=== PATIENT | female | born 1935 | race Caucasian/White ===

== ENCOUNTER 2021-11-29 08:57 | Inpatient (IN) ==
[2021-11-29] MEDS ORDERED: PROPOFOL IV EMULSION 10 MG/ML 100 ML VIAL IV ONE (09:08)
[2021-11-29] MEDS ORDERED: NALOXONE HCL 0.4 MG/1 ML VIAL/CARP ONE (09:12)
[2021-11-29 09:29] LABS: Basophils # (auto) 0.03 K/uL (0-0.2); Basophils % (auto) 0.3 %; Eosinophils # (auto) 0.06 K/uL (0-0.50); Eosinophils % (auto) 0.5 %; Hematocrit (blood only) 44.3 % (34.1-44.9); Hemoglobin 14.7 g/dl (12.0-16.0); Immature Granulocytes # (auto) 0.25 K/uL (0.00-0.02); Immature Granulocytes % (auto) 2.2 %; Lymphocytes # (auto) 2.85 K/uL (1.2-3.4); Lymphocytes % (auto) 25.4 %; Mean Corpuscular Hemoglobin 29.7 pg (25.0-34.0); Mean Corpuscular Hgb Conc 33.2 g/dL (32.0-36.0); Mean Corpuscular Volume 89.5 fL (80.0-100.0); Mean Platelet Volume 10.7 fL (9.4-12.3); Monocytes # (auto) 2.09 K/uL (0.24-0.82); Monocytes % (auto) 18.6 %; Neutrophils # (auto) 5.96 K/uL (1.4-6.5); Platelet Count 181 K/uL (130-400); RDW Coefficient of Variation 11.9 % (11.5-14.5); RDW Standard Deviation 37.9 fL (36.4-46.3); Red Blood Count 4.95 M/uL (3.93-5.22); White Blood Count 11.24 K/ul (4.8-10.8)
[2021-11-29 09:35] LABS: iSTAT Hemoglobin 15.3 g/dl (12.0-16.0); iSTAT Ionized Calcium 1.09 mmol/l (1.12-1.32); iSTAT Potassium 5.1 mmol/L (3.3-5.0)
--- NOTE | 2021-11-29 09:56 | Emergency Department Note ---
Impression & Plan Acute alteration in mental status, Dementia ED Provider Note Provider: Isaias Lares MD DATE OF SERVICE: 11/29/2021 CHIEF COMPLAINT: Altered mental status HISTORY OF PRESENT ILLNESS: Patient is a 86-year-old female history of dementia, hypertension, goiter, psoriasis presenting here today from her dementia unit at [facility] where she was found unresponsive this morning. Evidently late last night was not quite herself but unable to get further details from EMS. EMS reports the patient was found unresponsive in her bed this morning and brought here for further evaluation. EMS notes that her pupils appeared pinpoint and gave 2 mg of intranasal Narcan without improvement. They are bagging the patient as she intermittently has been having some apnea episodes. She not been responding to commands for them. Upon arrival the patient mainly responsive unable to gain additional history from her. [id number] who later arrived states that she was okay yesterday mid afternoo n when he saw her and she waved goodbye. This is not her baseline. REVIEW OF SYSTEMS: Unable obtain due to the patient's altered mental status PAST MEDICAL HISTORY: As noted above MEDICATIONS:Unable obtain due to the patient's altered mental status FMH:Unable obtain due to the patient's altered mental status SOCIAL HISTORY:Unable obtain due to the patient's altered mental status other than she resides at [facility] and former smoker PHYSICAL EXAM: GENERAL: Minimal withdrawal to painful stimuli. BVM by EMS upon arrival head: normocephalic and atraumatic EYES: No injection, discharge or icterus. Pupils 2 mm and pinpoint bilaterally. NECK: Trachea midline. Supple. ENT: Mucous membranes pink and moist. Pharynx without erythema or exudate. Minimal gag reflex initially. LUNGS: Airway patent. No retractions. Breath sounds clear with good air entry bilaterally. HEART: Irregular rate and rhythm. No chest wall tenderness ABDOMEN: Soft and non-tender, without guarding or rebound. SKIN: Acyanotic, warm, dry, with some patches of psoriasis on the face, arms, and thighs. No bulla or vesicles noted. EXTREMITIES: Without swelling, tenderness or deformity NEUROLOGICAL: Occasionally moves all extremities but not seemingly that purposefully. Minimally responsive to sternal rub. Does have an intact corneal reflex. EK bpm concerning this represents an atrial flutter picture although difficult to interpret given low amplitude and could simply represent some tremor artifact with sinus rhythm. No clear ST segment elevation noted. CONTINUOUS CARDIAC MONITORING: was ordered and showed a heart rate of 80s-100s bpm in atrial flutter to the normal sinus rhythm with brief possible episode of V. tach although given low amplitude and some slight tremor in her extremities may be artifactual. Patient's laboratory studies and imaging reviewed. Differential includes Infection, dehydration, metabolic abnormality, hypo/hyperglycemia, electrolyte disturbance, anemia, hypoxia, cardiac sources, intracerebral event, toxicologic, neurologic, as well as other pathologies. IMPRESSION/MEDICAL DECISION MAKING: Patient is with altered mental status. Afebrile upon arrival. Being bagged due to periods of apnea. Initially translated to BiPAP with some concern for need for intubation as initially she is fairly unresponsive with minimal gag. Given additional Narcan without much improvement. While attempting to determine CODE STATUS and establish IV access, patient's mental status did improve a bit and she said her name. Seems to be protecting her airway with a better gag reflex and thus will monitor closely on end-tidal and nasal cannula oxygen. She does not seem to be significantly hypoxic. There is no history of trauma reported. Blood work and broad work-up was entertained. CT the head to be completed. Patient's sister and [id number] later arrived and state they are POA and the patient would like everything done at this time and that she is in a terminal or vegetative state. Patient without significant focal evidence of deficit noted. CT of the head without significant findings. Chest x-ray also without significant findings. Blood work here really without significant explanation for her change in mental status. Upon returning from CT scan patient was awake and conversive and was able to have a drink and talk with us and family at bedside. Does not remember earlier episode. He is significantly improved and eleanor italo states she is back at bedside. Unsure of exact etiology of episode today. Given the significant change however feel that monitoring/observation will be warranted and the hospitalist team was contacted. Seems to be in a sinus rhythm now with some slight artifact. Question if the possible A. fib and again transient episode of V. tach were more artifactual earlier as we did not do significant intervention and they seem to have resolved quickly and spontaneously.. Can further be monitored here. DIAGNOSIS: Transient unresponsive episode, dementia DISPOSITION: Hospitalist will evaluate Family updated at bedside. Critical Care I have personally spent 32 minutes of critical care time in the direct management of this patient. This includes bedside care, interpretation of diagnostic studies, and testing, discussion with consultants, patient, and family members, and other required patient management activities. These 32 minutes is in excess of all separately billable procedures. Past Med/Surg History Social History Smoking Status: Unknown if ever smoked Feels Safe at Home: Yes Allergies Allergies Allergy/AdvReac Type Severity Reaction Status Date / Time indomethacin AdvReac Unknown Verified 11/29/21 10:15 Home Meds Home Medications Medication Instructions Recorded Confirmed Certa-Delores 1 tab PO DAILY 11/29/21 11/29/21 buspirone 30 mg tablet 30 mg PO BID 11/29/21 11/29/21 clotrimazole-betamethasone 1 1 applic topical BID 11/29/21 11/29/21 %-0.05 % topical cream cranberry 500 mg capsule 500 mg PO DAILY 11/29/21 11/29/21 donepezil 10 mg tablet 10 mg PO HS 11/29/21 11/29/21 memantine 5 mg tablet 5 mg PO BID 11/29/21 11/29/21 metoprolol tartrate 25 mg tablet 25 mg PO BID 11/29/21 11/29/21 quetiapine 50 mg tablet 50 mg PO BID 11/29/21 11/29/21 simvastatin 10 mg tablet 10 mg PO HS 11/29/21 11/29/21 vit C 250 mg-vit E 90 mg-zinc 40 1 cap PO BID 11/29/21 11/29/21 mg-copper 1 [id number] capsule (PreserVision AREDS-2) Results & Data (ED) Vital Signs Vital Signs - 24 hr 11/29/21 09:07 11/29/21 09:30 11/29/21 10:30 Temperature 36.8 C Temperature Source Rectal Pulse Rate 115 H Pulse Rate [Left Finger] 86 84 Pulse Rhythm Regular Pulse Strength Normal Respiratory Rate 13 21 16 Respiratory Effort / Characteristics Non-Labored Spontaneous Respiratory Depth Normal Blood Pressure 143/98 H Blood Pressure [Left Arm] 138/90 136/72 Blood Pressure Mean 113 Blood Pressure Mean [Left Arm] 106 93 Blood Pressure Position Sitting Blood Pressure Position [Left Arm] Sitting Sitting Pulse Oximetry 93 96 98 Oxygen Delivery Method BiPAP Nasal Cannula Room Air Oxygen Flow Rate 3 Sepsis Recent Fever Within 48 Hours No Sepsis New/Unexplained Change in Mental Status No Sepsis Action Taken by Nursing No Action Required Laboratory Data Result diagrams: 11/29/21 09:16 11/29/21 09:16 Lab Results 11/29/21 11/29/21 11/29/21 Range/Units 09:16 09:16 09:16 WBC 11.24 H (4.8-10.8) K/ul RBC 4.95 (3.93-5.22) M/uL Hgb 14.7 (12.0-16.0) g/dl POC Hgb (12.0-16.0) g/dl Hct 44.3 (34.1-44.9) % POC Hct (37-47) % MCV 89.5 (80.0-100.0) fL MCH 29.7 (25.0-34.0) pg MCHC 33.2 (32.0-36.0) g/dL RDW Std Deviation 37.9 (36.4-46.3) fL RDW Coeff of Guera 11.9 (11.5-14.5) % Plt Count 181 (130-400) K/uL MPV 10.7 (9.4-12.3) fL Immature Gran % (Auto) 2.2 % Neut % (Auto) 53.0 % Lymph % (Auto) 25.4 % Bowman % (Auto) 18.6 % Eos % (Auto) 0.5 % Baso % (Auto) 0.3 % Neut # (Auto) 5.96 (1.4-6.5) K/uL Lymph # (Auto) 2.85 (1.2-3.4) K/uL Bowman # (Auto) 2.09 H (0.24-0.82) K/uL Eos # (Auto) 0.06 (0-0.50) K/uL Baso # (Auto) 0.03 (0-0.2) K/uL Immature Gran # (Auto) 0.25 H (0.00-0.02) K/uL VBG pH (7.36-7.41) VBG pCO2 (38-50) mmHg VBG pO2 mmHg VBG HCO3 mmol/L VBG O2 Saturation % VBG Base Excess mEq/L POC Sodium (135-144) mmol/L Sodium 135 L (136-145) mmol/L POC Potassium (3.3-5.0) mmol/L Potassium 4.9 (3.5-5.1) mmol/L POC Chloride (101-112) mmol/L Chloride 100 (98-107) mmol/L Carbon Dioxide 26 (21-32) mmol/L POC Total CO2 (24-31) mmol/L Anion Gap 9 (3-11) POC Anion Gap (16-25) mmol/L POC BUN (7-18) mg/dl BUN 22 (6-23) mg/dl Creatinine 1.03 (0.6-1.2) mg/dl POC Creatinine (0.6-1.3) mg/dl Est Cr Clr Drug Dosing 41.6 ml/min Est GFR ( Amer) 57.8 ml/min Est GFR (Non-Af Amer) 49.9 ml/min BUN/Creatinine Ratio 21.4 H (10-20) Glucose 96 (70-99(Fasting)) mg/dl POC Glucose (other) (70-99) mg/dl Lactate (0.4-2.0) mmol/L Calcium 10.0 (8.5-10.1) mg/dl POC Ioniz Calcium Tiff (1.12-1.32) mmol/l Magnesium 2.2 (1.7-2.4) mg/dl Total Bilirubin 0.8 (0.2-1.0) mg/dl AST 28 (13-39) U/L ALT 18 (7-52) U/L Alkaline Phosphatase 123 H (34-104) U/L Ammonia (18-72) umol/L Total Creatine Kinase 37 (26-192) U/L Troponin I High Sens 9.4 (0-14) pg/ml Total Protein 8.4 H (6.0-8.3) gm/dl Albumin 4.4 (3.4-5.0) gm/dl Globulin 4.0 (2.5-4.0) gm/dl Albumin/Globulin Ratio 1.1 (0.9-2) TSH 0.979 (0.300-4.500) uIu/ml Urine Color Urine Appearance (Clear) Urine pH (4.5-7.5) Ur Specific [place] (1.000-1.030) Urine Protein (Negative) Urine Glucose (UA) (Negative) Urine Ketones (Negative) Urine Blood (Negative) Urine Nitrite (Negative) Urine Bilirubin (Negative) Urine Urobilinogen (Negative) Ur Leukocyte Esterase (Negative) Urine WBC (Auto) (0-5) /hpf Urine RBC (Auto) (0-4) /hpf U Hyaline Cast (Auto) (0-5) /lpf U Epithel Cells (Auto) (0-5) /lpf Urine Bacteria (Auto) (Negative) Salicylates (3.0-30) mg/dl Acetaminophen (10-30) ug/ml Ethyl Alcohol mg/dL (<10.0) mg/dl SARS-CoV-2, RNA, NAAT (NEGATIVE) 11/29/21 11/29/21 11/29/21 Range/Units 09:16 09:20 09:35 WBC (4.8-10.8) K/ul RBC (3.93-5.22) M/uL Hgb (12.0-16.0) g/dl POC Hgb 15.3 (12.0-16.0) g/dl Hct (34.1-44.9) % POC Hct 45 (37-47) % MCV (80.0-100.0) fL MCH (25.0-34.0) pg MCHC (32.0-36.0) g/dL RDW Std Deviation (36.4-46.3) fL RDW Coeff of Guera (11.5-14.5) % Plt Count (130-400) K/uL MPV (9.4-12.3) fL Immature Gran % (Auto) % Neut % (Auto) % Lymph % (Auto) % Bowman % (Auto) % Eos % (Auto) % Baso % (Auto) % Neut # (Auto) (1.4-6.5) K/uL Lymph # (Auto) (1.2-3.4) K/uL Bowman # (Auto) (0.24-0.82) K/uL Eos # (Auto) (0-0.50) K/uL Baso # (Auto) (0-0.2) K/uL Immature Gran # (Auto) (0.00-0.02) K/uL VBG pH (7.36-7.41) VBG pCO2 (38-50) mmHg VBG pO2 mmHg VBG HCO3 mmol/L VBG O2 Saturation % VBG Base Excess mEq/L POC Sodium 137 (135-144) mmol/L Sodium (136-145) mmol/L POC Potassium 5.1 H (3.3-5.0) mmol/L Potassium (3.5-5.1) mmol/L POC Chloride 103 (101-112) mmol/L Chloride (98-107) mmol/L Carbon Dioxide (21-32) mmol/L POC Total CO2 26 (24-31) mmol/L Anion Gap (3-11) POC Anion Gap 15.0 L (16-25) mmol/L POC BUN 24 H (7-18) mg/dl BUN (6-23) mg/dl Creatinine (0.6-1.2) mg/dl POC Creatinine 1.0 (0.6-1.3) mg/dl Est Cr Clr Drug Dosing ml/min Est GFR ( Amer) ml/min Est GFR (Non-Af Amer) ml/min BUN/Creatinine Ratio (10-20) Glucose (70-99(Fasting)) mg/dl POC Glucose (other) 103 H (70-99) mg/dl Lactate (0.4-2.0) mmol/L Calcium (8.5-10.1) mg/dl POC Ioniz Calcium Tiff 1.09 L (1.12-1.32) mmol/l Magnesium (1.7-2.4) mg/dl Total Bilirubin (0.2-1.0) mg/dl AST (13-39) U/L ALT (7-52) U/L Alkaline Phosphatase (34-104) U/L Ammonia (18-72) umol/L Total Creatine Kinase (26-192) U/L Troponin I High Sens (0-14) pg/ml Total Protein (6.0-8.3) gm/dl Albumin (3.4-5.0) gm/dl Globulin (2.5-4.0) gm/dl Albumin/Globulin Ratio (0.9-2) TSH (0.300-4.500) uIu/ml Urine Color Yellow Urine Appearance Clear (Clear) Urine pH 6.5 (4.5-7.5) Ur Specific [place] 1.016 (1.000-1.030) Urine Protein 1+ H (Negative) Urine Glucose (UA) Negative (Negative) Urine Ketones Negative (Negative) Urine Blood Negative (Negative) Urine Nitrite Negative (Negative) Urine Bilirubin Negative (Negative) Urine Urobilinogen Negative (Negative) Ur Leukocyte Esterase Trace H (Negative) Urine WBC (Auto) 1-5 (0-5) /hpf Urine RBC (Auto) 0-4 (0-4) /hpf U Hyaline Cast (Auto) 0 (0-5) /lpf U Epithel Cells (Auto) 10-20 H (0-5) /lpf Urine Bacteria (Auto) Negative (Negative) Salicylates < 3.0 L (3.0-30) mg/dl Acetaminophen < 3 L (10-30) ug/ml Ethyl Alcohol mg/dL (<10.0) mg/dl SARS-CoV-2, RNA, NAAT (NEGATIVE) 11/29/21 11/29/21 11/29/21 Range/Units 09:35 10:09 10:09 WBC (4.8-10.8) K/ul RBC (3.93-5.22) M/uL Hgb (12.0-16.0) g/dl POC Hgb (12.0-16.0) g/dl Hct (34.1-44.9) % POC Hct (37-47) % MCV (80.0-100.0) fL MCH (25.0-34.0) pg MCHC (32.0-36.0) g/dL RDW Std Deviation (36.4-46.3) fL RDW Coeff of Guera (11.5-14.5) % Plt Count (130-400) K/uL MPV (9.4-12.3) fL Immature Gran % (Auto) % Neut % (Auto) % Lymph % (Auto) % Bowman % (Auto) % Eos % (Auto) % Baso % (Auto) % Neut # (Auto) (1.4-6.5) K/uL Lymph # (Auto) (1.2-3.4) K/uL Bowman # (Auto) (0.24-0.82) K/uL Eos # (Auto) (0-0.50) K/uL Baso # (Auto) (0-0.2) K/uL Immature Gran # (Auto) (0.00-0.02) K/uL VBG pH (7.36-7.41) VBG pCO2 (38-50) mmHg VBG pO2 mmHg VBG HCO3 mmol/L VBG O2 Saturation % VBG Base Excess mEq/L POC Sodium (135-144) mmol/L Sodium (136-145) mmol/L POC Potassium (3.3-5.0) mmol/L Potassium (3.5-5.1) mmol/L POC Chloride (101-112) mmol/L Chloride (98-107) mmol/L Carbon Dioxide (21-32) mmol/L POC Total CO2 (24-31) mmol/L Anion Gap (3-11) POC Anion Gap (16-25) mmol/L POC BUN (7-18) mg/dl BUN (6-23) mg/dl Creatinine (0.6-1.2) mg/dl POC Creatinine (0.6-1.3) mg/dl Est Cr Clr Drug Dosing ml/min Est GFR ( Amer) ml/min Est GFR (Non-Af Amer) ml/min BUN/Creatinine Ratio (10-20) Glucose (70-99(Fasting)) mg/dl POC Glucose (other) (70-99) mg/dl Lactate (0.4-2.0) mmol/L Calcium (8.5-10.1) mg/dl POC Ioniz Calcium Tiff (1.12-1.32) mmol/l Magnesium (1.7-2.4) mg/dl Total Bilirubin (0.2-1.0) mg/dl AST (13-39) U/L ALT (7-52) U/L Alkaline Phosphatase (34-104) U/L Ammonia 29.0 (18-72) umol/L Total Creatine Kinase (26-192) U/L Troponin I High Sens (0-14) pg/ml Total Protein (6.0-8.3) gm/dl Albumin (3.4-5.0) gm/dl Globulin (2.5-4.0) gm/dl Albumin/Globulin Ratio (0.9-2) TSH (0.300-4.500) uIu/ml Urine Color Urine Appearance (Clear) Urine pH (4.5-7.5) Ur Specific [place] (1.000-1.030) Urine Protein (Negative) Urine Glucose (UA) (Negative) Urine Ketones (Negative) Urine Blood (Negative) Urine Nitrite (Negative) Urine Bilirubin (Negative) Urine Urobilinogen (Negative) Ur Leukocyte Esterase (Negative) Urine WBC (Auto) (0-5) /hpf Urine RBC (Auto) (0-4) /hpf U Hyaline Cast (Auto) (0-5) /lpf U Epithel Cells (Auto) (0-5) /lpf Urine Bacteria (Auto) (Negative) Salicylates (3.0-30) mg/dl Acetaminophen (10-30) ug/ml Ethyl Alcohol mg/dL < 10.0 (<10.0) mg/dl SARS-CoV-2, RNA, NAAT NEGATIVE (NEGATIVE) 11/29/21 11/29/21 Range/Units 10:12 10:26 WBC (4.8-10.8) K/ul RBC (3.93-5.22) M/uL Hgb (12.0-16.0) g/dl POC Hgb (12.0-16.0) g/dl Hct (34.1-44.9) % POC Hct (37-47) % MCV (80.0-100.0) fL MCH (25.0-34.0) pg MCHC (32.0-36.0) g/dL RDW Std Deviation (36.4-46.3) fL RDW Coeff of Guera (11.5-14.5) % Plt Count (130-400) K/uL MPV (9.4-12.3) fL Immature Gran % (Auto) % Neut % (Auto) % Lymph % (Auto) % Bowman % (Auto) % Eos % (Auto) % Baso % (Auto) % Neut # (Auto) (1.4-6.5) K/uL Lymph # (Auto) (1.2-3.4) K/uL Bowman # (Auto) (0.24-0.82) K/uL Eos # (Auto) (0-0.50) K/uL Baso # (Auto) (0-0.2) K/uL Immature Gran # (Auto) (0.00-0.02) K/uL VBG pH 7.36 (7.36-7.41) VBG pCO2 50 (38-50) mmHg VBG pO2 25 mmHg VBG HCO3 28 mmol/L VBG O2 Saturation < 60.0 % VBG Base Excess 1.9 mEq/L POC Sodium (135-144) mmol/L Sodium (136-145) mmol/L POC Potassium (3.3-5.0) mmol/L Potassium (3.5-5.1) mmol/L POC Chloride (101-112) mmol/L Chloride (98-107) mmol/L Carbon Dioxide (21-32) mmol/L POC Total CO2 (24-31) mmol/L Anion Gap (3-11) POC Anion Gap (16-25) mmol/L POC BUN (7-18) mg/dl BUN (6-23) mg/dl Creatinine (0.6-1.2) mg/dl POC Creatinine (0.6-1.3) mg/dl Est Cr Clr Drug Dosing ml/min Est GFR ( Amer) ml/min Est GFR (Non-Af Amer) ml/min BUN/Creatinine Ratio (10-20) Glucose (70-99(Fasting)) mg/dl POC Glucose (other) (70-99) mg/dl Lactate 1.2 (0.4-2.0) mmol/L Calcium (8.5-10.1) mg/dl POC Ioniz Calcium Tiff (1.12-1.32) mmol/l Magnesium (1.7-2.4) mg/dl Total Bilirubin (0.2-1.0) mg/dl AST (13-39) U/L ALT (7-52) U/L Alkaline Phosphatase (34-104) U/L Ammonia (18-72) umol/L Total Creatine Kinase (26-192) U/L Troponin I High Sens (0-14) pg/ml Total Protein (6.0-8.3) gm/dl Albumin (3.4-5.0) gm/dl Globulin (2.5-4.0) gm/dl Albumin/Globulin Ratio (0.9-2) TSH (0.300-4.500) uIu/ml Urine Color Urine Appearance (Clear) Urine pH (4.5-7.5) Ur Specific [place] (1.000-1.030) Urine Protein (Negative) Urine Glucose (UA) (Negative) Urine Ketones (Negative) Urine Blood (Negative) Urine Nitrite (Negative) Urine Bilirubin (Negative) Urine Urobilinogen (Negative) Ur Leukocyte Esterase (Negative) Urine WBC (Auto) (0-5) /hpf Urine RBC (Auto) (0-4) /hpf U Hyaline Cast (Auto) (0-5) /lpf U Epithel Cells (Auto) (0-5) /lpf Urine Bacteria (Auto) (Negative) Salicylates (3.0-30) mg/dl Acetaminophen (10-30) ug/ml Ethyl Alcohol mg/dL (<10.0) mg/dl SARS-CoV-2, RNA, NAAT (NEGATIVE) Administered Medications Discontinued Medications Naloxone HCl (Naloxone Hcl 0.4 Mg/1 Ml Vial/Carp) Confirm Administered Dose 2 mg .ROUTE .STK-MED ONE Stop: 11/29/21 09:13 Last Admin: 11/29/21 09:12 Dose: 2 mg Documented By: TORIN Propofol (Propofol Iv Emulsion 10 Mg/Ml 100 Ml Vial) Confirm Administered Dose 1,000 mg IV .STK-MED ONE Stop: 11/29/21 09:09 Last Admin: 11/29/21 12:12 Dose: Not Given Documented By: TORIN Imaging Data Radiologist's Impression: Head CT 11/29/21 08:59 CT head/brain wo con CLINICAL HISTORY: ams Technique: Contiguous axial CT images of the head were acquired from the base of the skull to the vertex without intravenous contrast administration. Images were viewed in brain, subdural and bone windows. Automated dose lowering techniques and/or adjustment according to patient size were utilized for this exam. Comparison: None available at the time of this dictation. Findings: Areas of decreased attenuation are present in the periventricular and subcorti zacarias white matter bilaterally consistent with small vessel ischemic disease. Generalized cerebral atrophy with commensurate enlargement of the ventricles, sulci, and cisterns is also present. There is no acute intracranial hemorrhage or evidence of acute territorial infarction. No shift of the midline structures, mass effect, or extra-axial abnormalities are shown. Atherosclerotic calcifications are present in the intracranial segments of the internal carotid arteries. Imaged portions of the paranasal sinuses and mastoid air cells are clear. The orbits appear normal. There are no acute fractures of the calvaria or scalp swelling. Impression: No acute intracranial hemorrhage, no evidence of acute territorial infarction or other acute intracranial disease process. ACT 112: Negative or not required by law. Electronically signed by: Yogi Jeffers M.D. 11/29/2021 10:00 AM Chest X-Ray 11/29/21 09:00 XR chest 1V portable CLINICAL HISTORY: ams TECHNIQUE: Single frontal radiograph of the chest was obtained. Comparison: None available at the time of this dictation. FINDINGS: No lines and tubes are seen. Calcified aortic knob is seen. The lungs are clear. No evidence of pleural effusion or pneumothorax. IMPRESSION: No acute chest disease. ACT 112: Negative or not required by law. Electronically signed by: Yogi Jeffers M.D. 11/29/2021 10:23 AM Discharge Plan Visit Data Chief Complaint: Altered Mental Status ED Provider: Isaias Lares Discharge Problem: Acute alteration in mental status, Dementia Patient Disposition: Being Evaluated by Hospitalist Discharge Instructions Interventions: ED Discharge Assessment Last Done: 11/29/21 11:54 : Dementia Qualifiers: Dementia type: unspecified type
[2021-11-29 09:59] LABS: Albumin Globulin Ratio 1.1 (0.9-2); Albumin Level 4.4 gm/dl (3.4-5.0); BUN Creatinine Ratio 21.4 (10-20); Bilirubin,Total 0.8 mg/dl (0.2-1.0); Creatinine Clr Calc Pharmacy 41.6 ml/min; Est GFR (African American) 57.8 ml/min; Est GFR (Non-African American) 49.9 ml/min; Magnesium 2.2 mg/dl (1.7-2.4); Potassium 4.9 mmol/L (3.5-5.1); Total Protein 8.4 gm/dl (6.0-8.3); Troponin I High Sensitivity 9.4 pg/ml (0-14)
[2021-11-29 10:00] LABS: Acetaminophen < 3 ug/ml (10-30); Salicylate < 3.0 mg/dl (3.0-30)
[2021-11-29 10:01] LABS: Appearance Urine Clear (Clear); Bilirubin Urine Negative (Negative); Blood Urine Negative (Negative); Color Urine Yellow; Glucose Urine UA Negative (Negative); Ketones Urine Negative (Negative); Leukocyte Esterase Urine Trace (Negative); Nitrite Urine Negative (Negative); Protein Urine 1+ (Negative); Specific Gravity Urine 1.016 (1.000-1.030); Urobilinogen Urine Negative (Negative); pH Urine 6.5 (4.5-7.5)
--- NOTE | 2021-11-29 10:01 | CT Scan Report ---
CT head/brain wo con CLINICAL HISTORY: ams Technique: Contiguous axial CT images of the head were acquired from the base of the skull to the lyn mabel without intravenous contrast administration. Images were viewed in brain, subdural and bone [facility]. Automated dose lowering techniques and/or adjustment according to patient size were utilized for this exam. Comparison: None available at the time of this dictation. Findings: Areas of decreased attenuation are present in the periventricular and subcortical white matter bilate rally consistent with small vessel ischemic disease. Generalized cerebral atrophy with commensurate e nlargement of the ventricles, sulci, and cisterns is also present. There is no acute intracranial hem orrhage or evidence of acute territorial infarction. No shift of the midline structures, mass effect, or extra-axial abnormalities are shown. Atherosclerotic calcifications are present in the intracran ial segments of the internal carotid arteries. Imaged portions of the paranasal sinuses and mastoid air cells are clear. The orbits appear normal. There are no acute fractures of the calvaria or scalp swelling. Impression: No acute intracranial hemorrhage, no evidence of acute territorial infarction or other acute intracra nial disease process. ACT 112: Negative or not required by law. Electronically signed by: Yogi Jeffers M.D. 11/29/2021 10:00 AM
[2021-11-29 10:23] LABS: Base Excess VBG 1.9 mEq/L; HCO3 VBG 28 mmol/L; Oxygen Saturation VBG < 60.0 %; PCO2 VBG 50 mmHg (38-50); PO2 VBG 25 mmHg; pH VBG 7.36 (7.36-7.41)
--- NOTE | 2021-11-29 10:25 | XRay Report ---
XR chest 1V portable CLINICAL HISTORY: ams TECHNIQUE: Single frontal radiograph of the chest was obtained. Comparison: None available at the time of this dictation. FINDINGS: No lines and tubes are seen. Calcified aortic knob is seen. The lungs are clear. No evidence of pleur al effusion or pneumothorax. IMPRESSION: No acute chest disease. ACT 112: Negative or not required by law. Electronically signed by: Yogi Jeffers M.D. 11/29/2021 10:23 AM
[2021-11-29 10:47] LABS: Cast Urine Automated 0 /lpf (0-5); RBC Urine Automated 0-4 /hpf (0-4)
[2021-11-29 10:48] LABS: Bacteria Urine Automated Negative (Negative)
--- NOTE | 2021-11-29 10:55 | History & Physical Report ---
Date of Service November 29, 2021 Assessment & Plan (1) Acute alteration in mental status: Plan: This is an 86-year-old female with PMH of Alzheimer's, mood disorder, hypertension and other medical problems listed below who presents from [facility] after being found unresponsive this morning. Found unresponsive this morning at facility and EMS was contacted Pupils appeared pinpoint and patient was given 2 mg of Narcan without improvement. Spontaneously resumed normal mentation of A&Ox1 while in ED Afebrile, vital signs stable No leukocytosis, VBG pH 7.36, electrolytes and TSH wnl, ammonia normal, UA unremarkable, ethyl alcohol, salicylates and acetaminophen wnl, COVID-negative ECG with possible atrial flutter in 80s vs artifact - will repeat ECG. High sensitivity troponin normal Head CT with no acute intracranial hemorrhage, no evidence of acute territorial infarction or other acute intracranial disease process CXR with no acute chest disease Periods of apneic breathing, dropping to high 70s while in ED. Placed on supplemental O2. May benefit from sleep study Pending work up - Brain MRI w/wo, EEG Consulted psychiatry to review medications as possible contributor - recommend holding Buspar and Seroquel for now. Consult to follow (2) Alzheimer's dementia: Plan: Baseline cognition-alert and oriented to person. Continue donepezil on memantine (3) Hypertension: Plan: Normotensive. Continue losartan (4) Hyperlipidemia: Plan: Continue statin (5) Rash: Plan: Presence of rash over the past month. First noted under nose then left hand and bilateral anterior thighs. Treated with antifungal ointment without improvement. Unable to get into dermatology till the end of December Appearance typical of eczema-will try topical hydrocortisone DVT Ppx: SQ heparin Code status: FULL per discussion with BROOKE/mbwghbl-cs-bes Jamie PCP: Rickey Dispo: PCU Patient seen in collaboration with Dr. Ruiz. Please see addendum. History of Present Illness Chief Complaint: Unresponsive event Primary Care Provider: [facility]sim This is an 86-year-old female with PMH of Alzheimer's, mood disorder, hypertension and other medical problems listed below who presents from [facility] after being found unresponsive this morning. History primarily obtained from [id number] and BROOKE Ayala at bedside, who states he visited patient last evening and she was in normal state of health. Was found unresponsive this morning at facility and EMS was contacted. Pupils appeared pinpoint and patient was given 2 mg of Narcan without improvement. Was bagged in transit due to some episodes of apnea. Was initially not responding to commands. After returning from CAT scan, patient was back to normal mentation which is alert and oriented to person in setting of dementia. Knows who family is at bedside and that she is in the hospital although unsure exact location. Denies any pain or discomfort but unable to obtain full ROS due to patient's cognitive state. Requiring orientation throughout interview. Confirmed CODE STATUS is full code with Clarisa at bedside. He also notes she has had a rash for the past month that started under her nose and is now noticeable on left hand and bilateral anterior thighs. Nontender, not pruritic. Allergies Allergy/AdvReac Type Severity Reaction Status Date / Time indomethacin AdvReac Unknown Verified 11/29/21 10:15 Home Medications Medication Instructions Recorded Confirmed Type Certa-Delores 1 tab PO DAILY 11/29/21 11/29/21 History buspirone 30 mg tablet 30 mg PO BID 11/29/21 11/29/21 History clotrimazole-betamethasone 1 1 applic topical BID 11/29/21 11/29/21 History %-0.05 % topical cream cranberry 500 mg capsule 500 mg PO DAILY 11/29/21 11/29/21 History donepezil 10 mg tablet 10 mg PO HS 11/29/21 11/29/21 History memantine 5 mg tablet 5 mg PO BID 11/29/21 11/29/21 History metoprolol tartrate 25 mg tablet 25 mg PO BID 11/29/21 11/29/21 History quetiapine 50 mg tablet 50 mg PO BID 11/29/21 11/29/21 History simvastatin 10 mg tablet 10 mg PO HS 11/29/21 11/29/21 History vit C 250 mg-vit E 90 mg-zinc 40 1 cap PO BID 11/29/21 11/29/21 History mg-copper 1 oz-pjgmga-yjtuhi capsule (PreserVision AREDS-2) Past Med/Surg History Medical History (Updated 11/29/21 @ 12:40 by Jeanine Pepe PA-C) Alzheimer's dementia Hyperlipidemia Hypertension Surgical History (Updated 11/29/21 @ 12:40 by Jeanine Pepe PA-C) Cataract History of pneumonectomy Family History Other Heart disease Social History (Updated 11/29/21 @ 12:40 by Jeanine Pepe PA-C) Smoking Status: Unknown if ever smoked Second Hand Exposure: No; Do You Dip or Chew Tobacco: No; Hx Alcohol Use: No Hx Substance Use: No Preferred Language: Belarusian Communication Ability: Effective Air Dispatcher Required: No Beliefs That Will Affect Care: None Current Living Situation: Personal Care Facility Other Information That Helps Us Care for You: No Feels Safe at Home: Yes Safety Concerns: Feels Safe At This Time Assistive Devices: None Review of Systems Review of Systems: Unobtainable due to cognitive status Physical Exam Physical Exam: General Appearance: WD/WN, vitals as above, NAD, sitting up in bed, pleasantly confused, following commands Head: normocephalic, atraumatic Eyes: normal inspection, PERRL, conjunctivae normal ENT: external ear and nose normal, oropharynx normal Neck: normal visual inspection, trachea midline, no thyromegaly Respiratory: normal respiratory effort, lungs clear to auscultation, no wheeze, rales, rhonchi. No accessory muscle use Cardiovascular: regular rate, rhythm, no murmur, normal peripheral pulses, no BLE edema. Vessels: no JVD Chest: normal inspection of chest Abdomen/GI: normal bowel sounds, soft, nontender, no hepatosplenomegaly : Booth catheter Extremities/Musculoskeletal: no cyanosis or clubbing, extremities motor strength 5/5 Neurologic: PERRL, EOMI, accommodation nl, no face palsy, no dysarthria, CN's II-XI intact bilaterally and moves all extremities Psychiatric: A+Ox1, pleasantly confused requiring redirection Skin: normal color, warm/dry. + multiple patch-like areas of erythema with overlying scaling under nose, on L dorsum of hand and bilateral anterior thighs Results & Data Results & Data ([facility]) Vital Signs (Past 12 Hours) Vital Signs Temp Pulse Pulse Resp BP BP Pulse Ox 11/29/21 10:30 84 16 136/72 98 11/29/21 09:30 86 21 138/90 96 11/29/21 09:07 36.8 C 115 H 13 143/98 H 93 O2 Del Method O2 Flow Rate 11/29/21 10:30 Room Air 11/29/21 09:30 Nasal Cannula 3 11/29/21 09:07 BiPAP Laboratory Results Short CBC 11/29/21 Range/Units 09:16 WBC 11.24 H (4.8-10.8) K/ul Hgb 14.7 (12.0-16.0) g/dl Hct 44.3 (34.1-44.9) % Plt Count 181 (130-400) K/uL BMP 11/29/21 09:16 Sodium 135 L Potassium 4.9 Chloride 100 Carbon Dioxide 26 BUN 22 Creatinine 1.03 Glucose 96 Calcium 10.0 Cardiac Enzymes 11/29/21 Range/Units 09:16 Total Creatine Kinase 37 (26-192) U/L Liver Function 11/29/21 Range/Units 09:16 Total Bilirubin 0.8 (0.2-1.0) mg/dl AST 28 (13-39) U/L ALT 18 (7-52) U/L Alkaline Phosphatase 123 H (34-104) U/L Albumin 4.4 (3.4-5.0) gm/dl Urine 11/29/21 Range/Units 09:35 Urine Color Yellow Urine Appearance Clear (Clear) Urine pH 6.5 (4.5-7.5) Ur Specific Mccormick 1.016 (1.000-1.030) Urine Protein 1+ H (Negative) Urine Glucose (UA) Negative (Negative) Diagnostic Findings Head CT 11/29/21 08:59 CT head/brain wo con CLINICAL HISTORY: ams Technique: Contiguous axial CT images of the head were acquired from the base of the skull to the vertex without intravenous contrast administration. Images were viewed in brain, subdural and bone windows. Automated dose lowering techniques and/or adjustment according to patient size were utilized for this exam. Comparison: None available at the time of this dictation. Findings: Areas of decreased attenuation are present in the periventricular and subcortical white matter bilaterally consistent with small vessel ischemic disease. Generalized cerebral atrophy with commensurate enlargement of the ventricles, sulci, and cisterns is also present. There is no acute intracranial hemorrhage or evidence of acute territorial infarction. No shift of the midline structures, mass effect, or extra-axial abnormalities are shown. Atherosclerotic calcifications are present in the intracranial segments of the internal carotid arteries. Imaged portions of the paranasal sinuses and mastoid air cells are clear. The orbits appear normal. There are no acute fractures of the calvaria or scalp swelling. Impression: No acute intracranial hemorrhage, no evidence of acute territorial infarction or other acute intracranial disease process. ACT 112: Negative or not required by law. Electronically signed by: Yogi Jeffers M.D. 11/29/2021 10:00 AM Chest X-Ray 11/29/21 09:00 XR chest 1V portable CLINICAL HISTORY: ams TECHNIQUE: Single frontal radiograph of the chest was obtained. Comparison: None available at the time of this dictation. FINDINGS: No lines and tubes are seen. Calcified aortic knob is seen. The lungs are clear. No evidence of pleural effusion or pneumothorax. IMPRESSION: No acute chest disease. ACT 112: Negative or not required by law. Electronically signed by: Yogi Jeffers M.D. 11/29/2021 10:23 AM ECG Additional Comments: Initial ECG with 84 bpm with possible atrial flutter vs. artifact. Will repeat Code Status & VTE Plan VTE Prophylaxis Plan VTE Prophylaxis will be ordered: Yes Supervising Physician Co-Signing Physician Notes Attending Addendum: care coordinated with ELAYNE Pepe please refer to her notes for full details, I agree with her notes patient seen and examined, records reviewed by myself as well on exam, patient seen resting in bed, sitting up in good spirits brother in law at bedside, supplementing history no other symptoms VS noted and reviewed oriented x 1-2, has chronic dementia- at baseline per family, not in distress, speaks in sentences with no effort nor accessory muscle use normal rate, regular rhythm, no murmurs clear breath sounds bilaterally non distended, soft, nontender no bipedal edema, erythema, warmth no neuro deficits ASSESSMENT AND PLAN UNRESPONSIVE EPISODE unable to be awakened this morning, EMS called, required bagging due to apneic episodes, brought to the ER, VS stable did not respond to Narcan, no hypercapnea after arrival back to her room from CT head, patient spontaneously woke up no chest pain, dyspnea, palpitations, dizziness possible post ictal state? Brain MRI, EEG arrhythmia? Tele, echo psych meds? hold for now, Psych consult no infection at this point, monitor other diagnoses and plan of care as per ELAYNE Pepe's notes Zachariah Ruiz MD
[2021-11-29] MEDS ORDERED: POLYETHYLENE (MIRALAX) 17 GM PACK PO PRN (12:33)
[2021-11-29] MEDS ORDERED: ACETAMINOPHEN 325 MG TAB PO PRN (12:33)
--- NOTE | 2021-11-29 13:05 | Communication Note ---
Date of Service: November 29, 2021 chart reviewed, case discussed briefly with ELAYNE Pepe as suggest holding Buspar and Seroquel for now. if not already completed check QTc. Full consult to follow within 24 hrs.
[2021-11-29] MEDS: HEPARIN SOD 5,000 UNIT/0.5 ML VIAL SQ SCH ×2 (14:21→20:11)
[2021-11-29] MEDS ORDERED: GADOBUTROL 30ML VIAL IV ONE (16:23)
--- NOTE | 2021-11-29 19:44 | Magnetic Resonance Report ---
MR brain wo/w con CLINICAL HISTORY: unresponsive episode TECHNIQUE: Multiplanar and multisequence MR images of the brain were obtained prior to and following administration of gadolinium contrast. Comparison: Comparison is made to CT head 12/01/2021 FINDINGS: No abnormal restricted diffusion is identified. Foci of T2 and FLAIR hyperintensity are noted in the paraventricular areas consistent with chronic small vessel ischemic disease. Ex vacuo ventriculomegal y and sulcal enlargement is noted compatible with diffuse encephalomalacia. No mass or abnormal enhan cement is seen. There is no mass effect or midline shift. There is no evidence of acute intraparenchy mal hemorrhage. No extra axial fluid collections are seen. The corpus callosum, pituitary gland, and cerebellar tonsils appear grossly unremarkable. Flow voids of the major intracranial arterial vessels are identified. The imaged portions of the para nasal sinuses, mastoid air cells, and orbits are unremarkable. IMPRESSION: No acute abnormality is seen, in particular there is no evidence of acute infarct. ACT 112: Negative or not required by law. Electronically signed by: Yogi Jeffers M.D. 11/29/2021 7:42 PM
[2021-11-29] MEDS: DONEPEZIL HCL 10 MG TAB PO SCH (20:09)
[2021-11-29] MEDS: MEMANTINE HCL 5 MG TAB PO SCH (20:10)
[2021-11-29] MEDS: METOPROLOL TARTRATE 25 MG TAB PO SCH (20:10)
[2021-11-29] MEDS: SIMVASTATIN 10 MG TAB PO SCH (20:11)
[2021-11-29] MEDS: HYDROCORTISONE 1% CRM 30 GM TUBE EXT SCH (20:11)
[2021-11-29] MEDS ORDERED: CLOTRIMAZOLE/BETAMETHASONE CR 15 GM TUBE EXT SCH (21:00)
[2021-11-29] MEDS ORDERED: NON-FORMULARY MEDICATION (Vit C,E-Zn-Coppr-Lutein-Zeaxan [Preservision Areds-2] 250-90-40- PO SCH (21:00)
[2021-11-29] MEDS ORDERED: OLANZapine 10 MG/2.1 ML SDV IM PRN (23:05)
[2021-11-30 05:27] LABS: A calco-baum cmplx NotReported Not Detected (NotDetected); Bact fragilis Not Reported Not Detected (NotDetected); C auris Not Reported Not Detected (NotDetected); Calbicans Not Reported Not Detected (NotDetected); Candida glabrata Not Reported Not Detected (NotDetected); Candida krusei Not Reported Not Detected (NotDetected); Cneoformans/gatti Not Reported Not Detected (NotDetected); Cparapsilosis Not Reported Not Detected (NotDetected); Ctropicalis Not Reported Not Detected (NotDetected); E cloacae compx Not Reported Not Detected (NotDetected); Efaecalis Not Reported Not Detected (NotDetected); Efaecium Not Reported Not Detected (NotDetected); Enterobacterales Not Reported Not Detected (NotDetected); Escherichia coli Not Reported Not Detected (NotDetected); H influenzae Not Reported Not Detected (NotDetected); K aerogenes Not Reported Not Detected (NotDetected); Koxytoca Not Reported Not Detected (NotDetected); Kpneumoniae grp Not Reported Not Detected (NotDetected); Lmonocyt Not Reported Not Detected (NotDetected); N meningitidis Not Reported Not Detected (NotDetected); P aeruginosa Not Reported Not Detected (NotDetected); Proteus spp Not Reported Not Detected (NotDetected); Salmonella spp Not Reported Not Detected (NotDetected); Smarcescens Not Reported Not Detected (NotDetected); Staph lugdunensis Not Reported Not Detected (NotDetected); Staph spp. Not Reported Not Detected (NotDetected); Staphaureus Not Reported Not Detected (NotDetected); Staphepi Not Reported Not Detected (NotDetected); Stenmaltophilia Not Reported Not Detected (NotDetected); Strep agal(GrpB) Not Reported Not Detected (NotDetected); Strep pneum Not Reported Not Detected (NotDetected); Strep pyog (GrpA) Not Reported Not Detected (NotDetected); Strep spp Not Reported DETECTED (NotDetected); Streptococcus spp DETECTED (NotDetected)
[2021-11-30] MEDS: HEPARIN SOD 5,000 UNIT/0.5 ML VIAL SQ SCH (05:59)
[2021-11-30] MEDS: cefTRIAXone SODIUM 1,000 MG in DEXTROSE 5% 50 ML IV SCH (06:15)
[2021-11-30 06:55] LABS: Hemoglobin 12.9 g/dl (12.0-16.0); Mean Corpuscular Hemoglobin 29.9 pg (25.0-34.0); Mean Corpuscular Hgb Conc 33.9 g/dL (32.0-36.0); Mean Platelet Volume 11.1 fL (9.4-12.3); Platelet Count 182 K/uL (130-400); RDW Coefficient of Variation 11.7 % (11.5-14.5); RDW Standard Deviation 37.6 fL (36.4-46.3); Red Blood Count 4.32 M/uL (3.93-5.22); White Blood Count 10.66 K/ul (4.8-10.8)
[2021-11-30 07:33] LABS: BUN Creatinine Ratio 18.6 (10-20); Calcium 9.2 mg/dl (8.5-10.1); Creatinine Clr Calc Pharmacy 38.4 ml/min; Est GFR (African American) 58.5 ml/min; Est GFR (Non-African American) 50.5 ml/min; Potassium 3.9 mmol/L (3.5-5.1)
[2021-11-30] MEDS ORDERED: NON-FORMULARY MEDICATION (Cranberry 500 mg Capsule) PO SCH (09:00)
[2021-11-30] MEDS: HYDROCORTISONE 1% CRM 30 GM TUBE EXT SCH ×2 (09:27→21:47)
[2021-11-30] MEDS: MEMANTINE HCL 5 MG TAB PO SCH ×2 (09:27→21:48)
[2021-11-30] MEDS: METOPROLOL TARTRATE 25 MG TAB PO SCH ×2 (09:27→21:47)
[2021-11-30] MEDS: CEROVITE ADV FORMULA TAB PO SCH (09:28)
--- NOTE | 2021-11-30 11:37 | Communication Note ---
Date of Service: November 30, 2021 patient is currently sleeping soundly following ECHO, EKGs reviewed. No behavioral management problems so far, if becomes more anxious would recommend restart Buspar 5 mg BIDM and/or Seroquel 12.5 mg BID and could retitrate every few days, though given age would titrate based on symptoms rather than automatically to previous dose as 60 mg highest end of dosing.
--- NOTE | 2021-11-30 11:54 | Cardiology Consultation ---
Date of Consultation November 30, 2021 Assessment & Plan (1) Atrial flutter with controlled response: (2) Acute alteration in mental status: (3) Alzheimer's dementia: (4) Rash: Plan 86-year-old female admitted with change in mental status. No evidence of overt syncope. Telemetry reveals atrial flutter with controlled ventricular response which is a new diagnosis. Recommend addition of intravenous heparin. We will assess candidacy for long-term anticoagulation as hospital course unfolds. 2D transthoracic echocardiogram ordered with results pending at this time. Continue telemetry monitoring. Heart rates appear controlled. No indication for AV efe blocking agent currently. History of Present Illness Reason for Consultation: Atrial flutter Requesting Physician: Dr. Romero Attending Physician: Frank Romero MD History of Present Illness 86-year-old female presents from [facility] to being found unresponsive in the a.m. 11/29/2021. History of dementia, mood disorder, and hypertension. ECG incidentally demonstrating atrial flutter with controlled ventricular response. Duration unknown. Patient denies palpitations, chest discomfort, or shortness of breath. No prior history of coronary disease, atrial fibrillation, atrial fl utter, or congestive heart failure. Currently resting comfortably and lying supine. Family member at bedside. Patient is awake and alert, however, oriented to person only. Voices concern regarding erythematous skin rash involving her face and legs. Allergies Allergy/AdvReac Type Severity Reaction Status Date / Time indomethacin AdvReac Unknown Verified 11/29/21 10:15 Home Medications Medication Instructions Recorded Confirmed Type Certa-Delores 1 tab PO DAILY 11/29/21 11/29/21 History buspirone 30 mg tablet 30 mg PO BID 11/29/21 11/29/21 History clotrimazole-betamethasone 1 1 applic topical BID 11/29/21 11/29/21 History %-0.05 % topical cream cranberry 500 mg capsule 500 mg PO DAILY 11/29/21 11/29/21 History donepezil 10 mg tablet 10 mg PO HS 11/29/21 11/29/21 History memantine 5 mg tablet 5 mg PO BID 11/29/21 11/29/21 History metoprolol tartrate 25 mg tablet 25 mg PO BID 11/29/21 11/29/21 History quetiapine 50 mg tablet 50 mg PO BID 11/29/21 11/29/21 History simvastatin 10 mg tablet 10 mg PO HS 11/29/21 11/29/21 History vit C 250 mg-vit E 90 mg-zinc 40 1 cap PO BID 11/29/21 11/29/21 History mg-copper 1 js-gugfri-mzteag capsule (PreserVision AREDS-2) Patient History Medical History Alzheimer's dementia Hyperlipidemia Hypertension Surgical History Cataract History of pneumonectomy Family History Other Heart disease Social History Smoking Status: Unknown if ever smoked Second Hand Exposure: No; Do You Dip or Chew Tobacco: No; Hx Alcohol Use: No Hx Substance Use: No Preferred Language: Portuguese Communication Ability: Impaired Log Washer Required: No Beliefs That Will Affect Care: None Current Living Situation: Personal Care Facility How many Children do You have: 0 Other Information That Helps Us Care for You: No Feels Safe at Home: Yes Safety Concerns: Feels Safe At This Time Assistive Devices: None Review of Systems Review of Systems: All systems reviewed & are unremarkable except as noted in Subjective Physical Exam Constitutional: well nourished; no acute distress Respiratory: normal respiratory effort; no respiratory distress, no labored breathing and no retractions Auscultation: lungs clear to auscultation bilaterally; no crackles, no rales, no rhonchi and no wheezes Cardiovascular: Rate/Rhythm: regular rate and regular rhythm Heart Sounds: normal S1 and normal S2; no murmur Vessels: no JVD Extremities: no edema Gastrointestinal (Abdomen): Inspection/Auscultation: abdomen normal to inspection and normal bowel sounds; abdomen not distended Percussion/Palpation: abdomen soft; abdomen nontender, no guarding and abdomen not rigid Skin: + rash Neurologic: CN's II-XI intact bilaterally and moves all extremities; no focal motor deficits Motor/Sensory: no tremor Results & Data ([facility]) Vital Signs (Past 12 Hours) Vital Signs Temp Pulse Pulse Resp BP BP Pulse Ox 11/30/21 07:37 36.3 C L 81 18 117/78 96 11/30/21 07:31 84 11/30/21 03:15 36.6 C 87 17 124/81 92 O2 Del Method 11/30/21 07:37 Room Air 11/30/21 07:31 11/30/21 03:15 Room Air
[2021-11-30] MEDS ORDERED: HEPARIN SOD (PORCINE) 1000 UNIT/ML IV ONE ×2 (12:09→12:30)
[2021-11-30] MEDS ORDERED: Heparin IV Adult Wt-Based Standard WITH Bolus Protocol IV SCH (12:15)
[2021-11-30] MEDS: HEPARIN SODIUM/DEXTROSE 25,000 UNITS/500 ML BAG IV SCH (13:07)
--- NOTE | 2021-11-30 13:27 | Electrocardiogram Report ---
Test Reason : Blood Pressure : / mmHG Vent. Rate : 084 BPM Atrial Rate : 264 BPM P-R Int : 000 ms QRS Dur : 080 ms QT Int : 396 ms P-R-T Axes : 067 009 -41 degrees QTc Int : 467 ms Poor data quality, interpretation may be adversely affected Atrial flutter with variable A-V block Low voltage QRS Septal infarct , age undetermined Abnormal ECG No previous ECGs available Confirmed by Horacio Martin ([id number]) on 11/30/2021 1:27:13 PM Referred By: REFERRED SELF Confirmed By:Horacio Martin
--- NOTE | 2021-11-30 13:41 | Electrocardiogram Report ---
Test Reason : Blood Pressure : / mmHG Vent. Rate : 087 BPM Atrial Rate : 286 BPM P-R Int : 000 ms QRS Dur : 072 ms QT Int : 394 ms P-R-T Axes : 099 -21 051 degrees QTc Int : 474 ms Atrial flutter with variable A-V block Low voltage QRS Inferior infarct , age undetermined Cannot rule out Anterior infarct (cited on or before 29-NOV-2021) Abnormal ECG When compared with ECG of 29-NOV-2021 09:18, (unconfirmed) Inferior infarct is now Present Questionable change in initial forces of Anteroseptal leads ST more elevated in Inferior leads Confirmed by Horacio Martin ([id number]) on 11/30/2021 1:41:13 PM Referred By: REFERRED SELF Confirmed By:Horacio Martin
--- NOTE | 2021-11-30 13:47 | Hospitalist Progress Note ---
Date of Service November 30, 2021 Assessment & Plan (1) Acute alteration in mental status: Plan: Patient is an 86 yr female with H/O Alzheimer's, mood disorder, hypertension and other medical problems listed below who presents from [facility] after being found unresponsive prior to admission. Altered mental status ? Syncopal Episode due to arrhythmia; Rule out Seizure --MRI Brain:No acute abnormality is seen, in particular there is no evidence of acute infarct. --CXR:No acute chest disease. --UA not suggestive of UTI --Normal TSH, Ammonia levels --VBG not suggestive of Hypercapnia --No obvious signs of Infection --EEG pending --Hold Psychiatric meds for now --Monitor --May need Sleep Study as outpatient Atrial flutter with controlled response--New diagnosis ECHO: EF 60 to 65%. Aortic valve sclerosis mild, without significant aortic valvular stenosis. Mild tricuspid regurgitation. Doppler findings do not suggest pulmonary hypertension. Normal Troponin Normal TSH Continue Metoprolol Started on IV Heparin for now Appreciate Cardiology Input Abnormal blood cultures 1/4 growing gram-positive cocci in chains Empirically on Rocephin Follow-up final cultures (2) Alzheimer's dementia: Plan: Baseline cognition Continue donepezil on memantine (3) Hypertension: Plan: Continue losartan, Metoprolol (4) Hyperlipidemia: Plan: Continue statin (5) Rash: Plan: ? Eczema Erythematous, patchy rash over the past month. Treated with antifungal ointment without improvement Continue topical hydrocortisone Needs follow-up with dermatology upon discharge DVT Px: IV heparin Code status: FULL CODE Admission and Anticipated Discharge Date Admission Date: November 29, 2021 Subjective Patient is seen and examined at bedside States not feeling self and feels tired Expresses no specific complaints Denies any chest pain, palpitations, dizziness, nausea, dyspnea, abdominal pain Discussed with family in detail at bedside Review of Systems Review of Systems: All systems reviewed & are unremarkable except as noted in Subjective Physical Exam Physical Exam: Physical Exam: Vitals signs as noted above General Appearance:Moderately built and nourished, no apparent distress Head: normocephalic, Atraumatic Eyes: normal inspection, EOMI Neck: supple, Trachea midline Respiratory/Chest: Normal breath sounds, CTA, No accessory muscle use Cardiovascular: S1, S2, No murmur Abdomen/GI:Soft, Non tender, Bowel sounds present Extremities/Musculoskeletal:normal inspection, no edema Neurologic/Psych:AAOX1, grossly no focal neurological deficits, Follows simple commands Skin: +erythematous patchy Rash on Nares, thighs, Left UE dorsum Results & Data Results & Data ([facility]) Vital Signs (Past 12 Hours) Vital Signs Temp Pulse Pulse Resp BP BP Pulse Ox 11/30/21 12:12 36.9 C 78 18 115/80 96 11/30/21 07:37 36.3 C L 81 18 117/78 96 11/30/21 07:31 84 11/30/21 03:15 36.6 C 87 17 124/81 92 O2 Del Method 11/30/21 12:12 Room Air 11/30/21 07:37 Room Air 11/30/21 07:31 11/30/21 03:15 Room Air Laboratory Results Short CBC 11/30/21 Range/Units 06:22 WBC 10.66 (4.8-10.8) K/ul Hgb 12.9 (12.0-16.0) g/dl Hct 38.0 (34.1-44.9) % Plt Count 182 (130-400) K/uL BMP 11/30/21 06:22 Sodium 134 L Potassium 3.9 D Chloride 102 Carbon Dioxide 25 BUN 19 Creatinine 1.02 Glucose 94 Calcium 9.2
[2021-11-30 21:26] LABS: Partial Thromboplastin Ratio > 5.1
[2021-11-30] MEDS: DONEPEZIL HCL 10 MG TAB PO SCH (21:46)
[2021-11-30] MEDS: SIMVASTATIN 10 MG TAB PO SCH (21:47)
[2021-11-30 22:06] LABS: Partial Thromboplastin Time > 139.0 Seconds (21.0-31.0)
[2021-12-01 01:51] LABS: Partial Thromboplastin Time 138.3 Seconds (21.0-31.0)
[2021-12-01 04:04] LABS: Partial Thromboplastin Time 54.6 Seconds (21.0-31.0)
[2021-12-01] MEDS: cefTRIAXone SODIUM 1,000 MG in DEXTROSE 5% 50 ML IV SCH (05:58)
[2021-12-01 08:47] LABS: Hematocrit (blood only) 40.8 % (34.1-44.9); Hemoglobin 13.6 g/dl (12.0-16.0); Mean Corpuscular Hemoglobin 29.3 pg (25.0-34.0); Mean Corpuscular Hgb Conc 33.3 g/dL (32.0-36.0); Mean Corpuscular Volume 87.9 fL (80.0-100.0); Platelet Count 184 K/uL (130-400); RDW Standard Deviation 38.4 fL (36.4-46.3); Red Blood Count 4.64 M/uL (3.93-5.22)
[2021-12-01] MEDS: METOPROLOL TARTRATE 25 MG TAB PO SCH ×2 (09:02→21:09)
[2021-12-01] MEDS: CEROVITE ADV FORMULA TAB PO SCH (09:02)
[2021-12-01] MEDS: MEMANTINE HCL 5 MG TAB PO SCH ×2 (09:02→21:02)
[2021-12-01] MEDS: HYDROCORTISONE 1% CRM 30 GM TUBE EXT SCH ×2 (09:03→21:06)
[2021-12-01 09:07] LABS: BUN Creatinine Ratio 16.7 (10-20); Calcium 9.1 mg/dl (8.5-10.1); Creatinine Clr Calc Pharmacy 36.3 ml/min; Est GFR (African American) 54.6 ml/min; Est GFR (Non-African American) 47.1 ml/min; Magnesium 2.2 mg/dl (1.7-2.4); Potassium 3.9 mmol/L (3.5-5.1)
--- NOTE | 2021-12-01 09:33 | Electrocardiogram Report ---
Test Reason : Blood Pressure : / mmHG Vent. Rate : 134 BPM Atrial Rate : 288 BPM P-R Int : 000 ms QRS Dur : 050 ms QT Int : 238 ms P-R-T Axes : -83 -47 078 degrees QTc Int : 355 ms Atrial flutter with variable A-V block Left axis deviation Poor R wave progression, consider anterior DE vs. lead placement vs. LVH Nonspecific ST and T wave abnormality Abnormal ECG When compared with ECG of 30-NOV-2021 06:01, No significant change Confirmed by Horacio Martin ([id number]) on 12/01/2021 9:33:20 AM Referred By: REFERRED SELF Confirmed By:Horacio Martin
--- NOTE | 2021-12-01 10:46 | Cardiology Progress Note ---
Date of Service December 01, 2021 Assessment & Plan (1) Atrial flutter with controlled response: (2) Acute alteration in mental status: (3) Alzheimer's dementia: (4) Rash: Plan 86-year-old female admitted with change in mental status. No evidence of overt syncope. Telemetry reveals atrial flutter with controlled ventricular response which is a new diagnosis. Patient remains asymptomatic. Continue IV heparin. She may transition to oral Eliquis if patient discharged to a monitored setting. Continue telemetry monitoring. Heart rates appear controlled at rest. Continue metoprolol as previously. Admission and Anticipated Discharge Date Admission Date: November 29, 2021 Subjective Patient seen and examined at the bedside. Oriented to person only. Awake and alert. Denies chest pain or shortness of breath. No palpitations. Offers no complaints. Review of Systems Review of Systems: All systems reviewed & are unremarkable except as noted in Subjective Physical Exam Constitutional: well nourished; no acute distress Respiratory: normal respiratory effort; no respiratory distress, no labored breathing and no retractions Auscultation: lungs clear to auscultation bilaterally; no crackles, no rales, no rhonchi and no wheezes Cardiovascular: Rate/Rhythm: regular rate and regular rhythm Heart Sounds: normal S1 and normal S2; no murmur Vessels: no JVD Extremities: no edema Gastrointestinal (Abdomen): Inspection/Auscultation: abdomen normal to inspection and normal bowel sounds; abdomen not distended Percussion/Palpation: abdomen soft; abdomen nontender, no guarding and abdomen not rigid Skin: + rash Neurologic: CN's II-XI intact bilaterally and moves all extremities; no focal motor deficits Motor/Sensory: no tremor Results & Data ([facility]) Vital Signs (Past 12 Hours) Vital Signs Temp Pulse Pulse Resp BP Pulse Ox O2 Del Method 12/01/21 09:01 83 106/78 12/01/21 08:21 36.6 C 90 18 126/83 96 Room Air 12/01/21 07:00 85 12/01/21 05:09 87 12/01/21 03:00 36.9 C 65 18 109/74 99
[2021-12-01 11:39] LABS: Partial Thromboplastin Ratio 3.2
[2021-12-01 12:11] LABS: Partial Thromboplastin Time 86.8 Seconds (21.0-31.0)
--- NOTE | 2021-12-01 12:51 | Communication Note ---
Date of Service: December 01, 2021 Case discussed briefly with Dr. Rey in anticipation of dosing recs for discharge. The patient's AMS is improved and no behavioral acting out here. Revi ewed restart of Buspar 5-10 mg BID, SEroquel 25 mg BID or 50 mg hs and defer further taper of Buspar or Seroquel or retitration of Seroquel to outpatient prescriber based on any emerging behavioral disturbance. Reviewed risks in elderly dementia. Relative lack of agitation/significant anxiety while hospitalized. All consult questions answered at this time and formal consult to be d/c.
[2021-12-01] MEDS ORDERED: SODIUM CHLORIDE 0.9% 1000ML 1,000 ML IV ONE (15:16)
--- NOTE | 2021-12-01 16:47 | Hospitalist Progress Note ---
Date of Service December 01, 2021 Assessment & Plan (1) Acute alteration in mental status: Plan: Patient is an 86 yr female with H/O Alzheimer's, mood disorder, hypertension and other medical problems listed below who presents from [facility] after being found unresponsive prior to admission. Altered mental status ? Syncopal Episode due to arrhythmia; Rule out Seizure --MRI Brain:No acute abnormality is seen, in particular there is no evidence of acute infarct. --CXR:No acute chest disease. --UA not suggestive of UTI --Normal TSH, Ammonia levels --VBG not suggestive of Hypercapnia --No obvious signs of Infection --EEG: pending --Resumed Buspar, Seroquel at reduced dose as recommended by Psychiatry (Needs for titration down as outpatient) --May need Sleep Study as outpatient Atrial flutter with controlled response--New diagnosis ECHO: EF 60 to 65%. Aortic valve sclerosis mild, without significant aortic valvular stenosis. Mild tricuspid regurgitation. Doppler findings do not suggest pulmonary hypertension. Normal Troponin Normal TSH Continue Metoprolol Continue IV Heparin Appreciate Cardiology Input Plan to switch to Eliquis upon discharge (Ok with anticoagulation as per POA) Abnormal blood cultures 1/4 growing gram-positive cocci in chains Likely contamination Empirically on Rocephin Follow-up final cultures (2) Alzheimer's dementia: Plan: Baseline cognition Continue donepezil on memantine (3) Hypertension: Plan: Continue losartan, Metoprolol (4) Hyperlipidemia: Plan: Continue statin (5) Rash: Plan: ? Eczema Erythematous, patchy rash over the past month. Treated with antifungal ointment without improvement Continue topical hydrocortisone Needs follow-up with dermatology upon discharge DVT Px: IV heparin Code status: FULL CODE Admission and Anticipated Discharge Date Admission Date: November 29, 2021 Subjective Patient is seen and examined at bedside No new complaints Discussed with POA at bedside Denies any chest pain, palpitations, dizziness, nausea, dyspnea, abdominal pain Also discussed psychiatry today Review of Systems Review of Systems: All systems reviewed & are unremarkable except as noted in Subjective Physical Exam Physical Exam: Physical Exam: Vitals signs as noted above General Appearance:Moderately built and nourished, no apparent distress Head: normocephalic, Atraumatic Eyes: normal inspection, EOMI Neck: supple, Trachea midline Respiratory/Chest: Normal breath sounds, CTA, No accessory muscle use Cardiovascular: S1, S2, No murmur Abdomen/GI:Soft, Non tender, Bowel sounds present Extremities/Musculoskeletal:normal inspection, no edema Neurologic/Psych:AAOX1, grossly no focal neurological deficits, Follows simple commands Skin: +erythematous patchy Rash on Nares, thighs, Left UE dorsum Results & Data Results & Data ([facility]) Vital Signs (Past 12 Hours) Vital Signs Temp Pulse Pulse Resp BP Pulse Ox O2 Del Method 12/01/21 16:00 100 H 12/01/21 16:00 36.5 C 98 H 18 95/69 L 94 Room Air 12/01/21 11:50 36.6 C 69 17 110/76 92 Room Air 12/01/21 09:01 83 106/78 12/01/21 08:21 36.6 C 90 18 126/83 96 Room Air 12/01/21 07:00 85 12/01/21 05:09 87 Laboratory Results Short CBC 12/01/21 Range/Units 08:17 WBC 10.20 (4.8-10.8) K/ul Hgb 13.6 (12.0-16.0) g/dl Hct 40.8 (34.1-44.9) % Plt Count 184 (130-400) K/uL BMP 12/01/21 08:17 Sodium 138 Potassium 3.9 Chloride 105 Carbon Dioxide 25 BUN 18 Creatinine 1.08 Glucose 86 Calcium 9.1
--- NOTE | 2021-12-01 17:12 | Electroencephalogram ---
EEG Procedure Note Date of Service December 01, 2021 Start / End Times Start Time: 1608 End Time: 1632 Referring Physician Jeanine Pepe PA-C History unresponsive episode Home Medication List Medication Instructions Recorded Confirmed Type Certa-Delores 1 tab PO DAILY 11/29/21 11/29/21 History buspirone 30 mg tablet 30 mg PO BID 11/29/21 11/29/21 History clotrimazole-betamethasone 1 1 applic topical BID 11/29/21 11/29/21 History %-0.05 % topical cream cranberry 500 mg capsule 500 mg PO DAILY 11/29/21 11/29/21 History donepezil 10 mg tablet 10 mg PO HS 11/29/21 11/29/21 History memantine 5 mg tablet 5 mg PO BID 11/29/21 11/29/21 History metoprolol tartrate 25 mg tablet 25 mg PO BID 11/29/21 11/29/21 History quetiapine 50 mg tablet 50 mg PO BID 11/29/21 11/29/21 History simvastatin 10 mg tablet 10 mg PO HS 11/29/21 11/29/21 History vit C 250 mg-vit E 90 mg-zinc 40 1 cap PO BID 11/29/21 11/29/21 History mg-copper 1 [id number] capsule (PreserVision AREDS-2) Inpatient Medication List Donepezil HCl (Donepezil Hcl 10 Mg Tab) 10 mg PO HS JUAN C Stop: 12/29/21 20:59 Last Admin: 11/30/21 21:46 Dose: 10 mg Documented By: Admin: 11/29/21 20:09 Dose: 10 mg Documented By: DAWNA Hydrocortisone (Hydrocortisone 1% Crm 30 Gm Tube) 1 appln EXT BID JUAN C Stop: 12/29/21 20:59 Last Admin: 12/01/21 09:03 Dose: 1 appln Documented By: Admin: 11/30/21 21:47 Dose: 1 appln Documented By: Admin: 11/30/21 09:27 Dose: 1 appln Documented By: Admin: 11/29/21 20:11 Dose: 1 appln Documented By: DAWNA Ceftriaxone Sodium 1,000 mg/ (Dextrose) 60 mls @ 120 mls/hr IV Q24H JUAN C; Protocol Stop: 12/14/21 05:59 Last Infusion: 12/01/21 06:33 Dose: 0 mls/hr Documented By: Admin: 12/01/21 05:58 Dose: 120 mls/hr Documented By: Infusion: 11/30/21 06:45 Dose: 0 mls/hr Documented By: Admin: 11/30/21 06:15 Dose: 120 mls/hr Documented By: DAWNA Heparin Sodium/Dextrose (Heparin Sodium/Dextrose) 25,000 units in 500 mls @ 14 mls/hr IV .Q24H JUAN C; Protocol Stop: 12/30/21 12:29 Last Titration: 12/01/21 13:16 Dose: 700 units/hr, 14 mls/hr Documented By: CLAUDINE Co-signed By: MS Titration: 12/01/21 12:15 Dose: 0 units/hr, 0 mls/hr Documented By: CLAUDINE Co-signed By: MS Titration: 12/01/21 06:58 Dose: 800 units/hr, 16 mls/hr Documented By: CLAUDINE Co-signed By: DAWNA Titration: 12/01/21 04:08 Dose: 800 units/hr, 16 mls/hr Documented By: DAWNA Co-signed By: EEM Titration: 11/30/21 22:29 Dose: 0 units/hr, 0 mls/hr Documented By: DAWNA Co-signed By: CLC Titration: 11/30/21 18:54 Dose: 1,100 units/hr, 22 mls/hr Documented By: YOLANDA Co-signed By: DAWNA Admin: 11/30/21 13:07 Dose: 1,100 units/hr, 22 mls/hr Documented By: YOLANDA Co-signed By: JUAN R Memantine (Memantine Hcl 5 Mg Tab) 5 mg PO BID JUAN C Stop: 12/29/21 20:59 Last Admin: 12/01/21 09:02 Dose: 5 mg Documented By: Admin: 11/30/21 21:48 Dose: 5 mg Documented By: Admin: 11/30/21 09:27 Dose: 5 mg Documented By: Admin: 11/29/21 20:10 Dose: 5 mg Documented By: DAWNA Metoprolol Tartrate (Metoprolol Tartrate 25 Mg Tab) 25 mg PO BID JUAN C Stop: 12/29/21 20:59 Last Admin: 12/01/21 09:02 Dose: 25 mg Documented By: Admin: 11/30/21 21:47 Dose: 25 mg Documented By: Admin: 11/30/21 09:27 Dose: 25 mg Documented By: Admin: 11/29/21 20:10 Dose: 25 mg Documented By: DAWNA Multivitamins/Minerals (Cerovite Adv Formula Tab) 1 tab PO DAILY JUAN C Stop: 12/30/21 08:59 Last Admin: 12/01/21 09:02 Dose: 1 tab Documented By: Admin: 11/30/21 09:28 Dose: 1 tab Documented By: YOLANDA Simvastatin (Simvastatin 10 Mg Tab) 10 mg PO HS JUAN C Stop: 12/29/21 20:59 Last Admin: 11/30/21 21:47 Dose: 10 mg Documented By: Admin: 11/29/21 20:11 Dose: 10 mg Documented By: DAWNA Discontinued Medications Gadobutrol (Gadobutrol 30ml Vial) 6.5 ml IV ONCE ONE Stop: 11/29/21 16:24 Last Admin: 11/29/21 15:58 Dose: 6.5 ml Documented By: KRISTOFER Heparin Sodium (Porcine) (Heparin Sod 5,000 Unit/0.5 Ml Vial) 5,000 units SQ Q8 JUAN C Stop: 12/29/21 13:59 Last Admin: 11/30/21 05:59 Dose: 5,000 units Documented By: Admin: 11/29/21 20:11 Dose: 5,000 units Documented By: Admin: 11/29/21 14:21 Dose: 5,000 units Documented By: YOLANDA Heparin Sodium (Porcine) (Heparin Sod (Porcine) 1000 Unit/Ml) 1 units IV NOW ONE Stop: 11/30/21 12:10 Last Admin: 11/30/21 13:02 Dose: Not Given Documented By: YOLANDA Heparin Sodium (Porcine) (Heparin Sod (Porcine) 1000 Unit/Ml) 5,000 units IV 1230 ONE Stop: 11/30/21 12:31 Last Admin: 11/30/21 13:06 Dose: 5,000 units Documented By: YOLANDA Co-signed By: JUAN R Heparin Sodium/Dextrose (Heparin Iv Adult Wt-Based Standard With Bolus Protocol) 1 each IV Q15M JUAN C; Protocol Stop: 12/30/21 12:14 Last Admin: 11/30/21 13:02 Dose: Not Given Documented By: YOLANDA Naloxone HCl (Naloxone Hcl 0.4 Mg/1 Ml Vial/Carp) Confirm Administered Dose 2 mg .ROUTE .STK-MED ONE Stop: 11/29/21 09:13 Last Admin: 11/29/21 09:12 Dose: 2 mg Documented By: TORIN Propofol (Propofol Iv Emulsion 10 Mg/Ml 100 Ml Vial) Confirm Administered Dose 1,000 mg IV .STK-MED ONE Stop: 11/29/21 09:09 Last Admin: 11/29/21 12:12 Dose: Not Given Documented By: TORIN Description This is a 21 electrode EEG with a single channel dedicated to limited EKG. The electrodes were placed in accordance with the International 10-20 system. Interpretation The predominant background activity consists of a somewhat irregular 8 Hz activity, of up to 40 mV in amplitude,seen symmetrically distributed over the posterior head regions bilaterally. This activity attenuates nicely with eye- opening and other alerting procedures. Photic stimulation was performed and elicited no change in the background activity and no abnormal responses were seen. Hyperventilation was not performed. A moderate amount of muscle and movement artifact activity contaminated the recording, hindering interpretation from time to time, especially at the end. Throughout the recording, no focal abnormalities, abnormal slow activity, or potentially epileptogenic discharges are seen. The patient entered the drowsy state briefly with no further activation. In summary, this EEG was normal during wakefulness and drowsiness. No focal abnormalities, potentially epileptogenic discharges, or abnormal slow activity was seen. Clinical Correlation The abscence of potentially epileptogenic activity does not exclude a seizure disorder, since interictally, EEGs can be normal. Clinical correlation is required. [facility] Procedure Codes Indication for Procedure (1) Unresponsive episode: (2) Acute alteration in mental status: (3) Dementia: Neurology Neurology: 73990 EEG include record awake & drowsy
[2021-12-01 19:05] LABS: Partial Thromboplastin Ratio 1.4; Partial Thromboplastin Time 37.3 Seconds (21.0-31.0)
[2021-12-01] MEDS ORDERED: HEPARIN IV BOLUS 2,000 UNITS in SYRINGE 0 ML IV ONE (19:15)
[2021-12-01] MEDS ORDERED: OLANZapine 10 MG/2.1 ML SDV IM STA (20:45)
[2021-12-01] MEDS: SIMVASTATIN 10 MG TAB PO SCH (21:03)
[2021-12-01] MEDS: busPIRone 5 MG TAB PO SCH (21:03)
[2021-12-01] MEDS: QUEtiapine FUMARATE 25 MG TABLET PO SCH (21:03)
[2021-12-01] MEDS: DONEPEZIL HCL 10 MG TAB PO SCH (21:06)
[2021-12-01] MEDS: HEPARIN SODIUM/DEXTROSE 25,000 UNITS/500 ML BAG IV SCH (23:06)
[2021-12-02 02:19] LABS: Partial Thromboplastin Ratio 3.9
[2021-12-02 02:24] LABS: Partial Thromboplastin Time 106.6 Seconds (21.0-31.0)
[2021-12-02] MEDS ORDERED: OLANZapine 10 MG/2.1 ML SDV IM SCH (02:45)
[2021-12-02] MEDS: cefTRIAXone SODIUM 1,000 MG in DEXTROSE 5% 50 ML IV SCH (05:59)
[2021-12-02] MEDS ORDERED: OLANZapine 10 MG/2.1 ML SDV IM PRN (07:40)
[2021-12-02] MEDS: CEROVITE ADV FORMULA TAB PO SCH (09:45)
[2021-12-02] MEDS: MEMANTINE HCL 5 MG TAB PO SCH ×2 (09:45→21:12)
[2021-12-02] MEDS: busPIRone 5 MG TAB PO SCH ×2 (09:45→20:03)
[2021-12-02] MEDS: QUEtiapine FUMARATE 25 MG TABLET PO SCH ×2 (09:45→20:03)
[2021-12-02] MEDS: METOPROLOL TARTRATE 25 MG TAB PO SCH ×2 (09:45→21:12)
[2021-12-02] MEDS: HYDROCORTISONE 1% CRM 30 GM TUBE EXT SCH ×2 (09:45→20:02)
--- NOTE | 2021-12-02 09:54 | Cardiology Progress Note ---
Date of Service December 02, 2021 Assessment & Plan (1) Atrial flutter with controlled response: (2) Acute alteration in mental status: (3) Alzheimer's dementia: (4) Rash: Plan 86-year-old female admitted with change in mental status. No evidence of overt syncope. Telemetry reveals atrial flutter with controlled ventricular response at rest, which is a new diagnosis. Rates increase to 150's with minimal exertion this morning. Started on metoprolol 25 mg BID on admission. Monitor rates. Patient remains asymptomatic. Continue IV heparin. Weight on standing scale this morning is 66 kg. Anticipate transition to Eliquis 5 mg BID. She reports independent living at [facility] previously. No recent falls She is currently requiring 1:1 sitter due to confusion. She did well with PT/OT with movement. May need additional assistance or transitioned to memory unit at [facility]. This may need addressed with case management/POA. Case discussed with Dr. Salazar. Admission and Anticipated Discharge Date Admission Date: November 29, 2021 Supervising Physician Co-Signing Physician Notes Patient seen examined at the bedside. Poor historian due to underlying dementia. Offers no concerns/complaints. PE: GEN: VSS. Heart: Regular rhythm, Normal S1S2. No murmur. Lungs: Clear bilateral, no rales, rhonchi, wheeze. Extremities: No edema. A/P: Agree with above PA-C history, physical exam, assessment and plan. Telemetry reviewed demonstrating rate controlled atrial flutter. Reported episodes of rapid ventricular response likely double counting of flutter waves in the setting of low amplitude QRS complexes. Continue metoprolol. Transition patient from intravenous heparin to oral Eliquis this evening. Subjective Patient was working with PT prior to evaluation. [place] well. HR's increased to 150's with minimal activity. Patient was asymptomatic. Patient had just gotten morning meds prior to PT. No chest pain or SOB. No recent falls. No dizziness or lightheadedness. She was unaware of palpitations. Currently has 1:1 sitter. Reports she is independent at [facility]. Review of Systems Review of Systems: All systems reviewed & are unremarkable except as noted in HPI & below Physical Exam Constitutional: well nourished; no acute distress Respiratory: normal respiratory effort; no respiratory distress, no labored breathing and no retractions Auscultation: lungs clear to auscultation bilaterally; no crackles, no rales, no rhonchi and no wheezes Cardiovascular: Rate/Rhythm: regular rhythm and + tachycardic Heart Sounds: normal S1 and normal S2; no murmur Vessels: no JVD Extremities: no edema Gastrointestinal (Abdomen): Inspection/Auscultation: abdomen normal to inspection and normal bowel sounds; abdomen not distended Percussion/Palpation: abdomen soft; abdomen nontender, no guarding and abdomen not rigid Skin: + rash Neurologic: CN's II-XI intact bilaterally and moves all extremities; no focal motor deficits Motor/Sensory: no tremor Results & Data ([facility]) Vital Signs (Past 12 Hours) Vital Signs Temp Pulse Pulse Resp BP Pulse Ox O2 Del Method 12/02/21 09:32 92 H 12/02/21 06:55 36.3 C L 89 18 114/82 96 Room Air 12/02/21 01:25 36.6 C 93 H 18 100/62 99 Room Air 12/01/21 23:32 94 H Laboratory Results Coagulation 12/01/21 12/01/21 12/02/21 Range/Units 10:48 18:39 01:28 APTT 86.8 H* 37.3 H 106.6 H* (21.0-31.0) Seconds Intake and Output 12/01/21 12/02/21 12/02/21 22:59 06:59 14:59 Intake Total 81.667 / 5982.898 4001.067 / 1343.267 Balance 81.667 / 0738.035 3455.067 / 1193.267 Intake: IV 81.667 / 4487.056 2606.067 / 1343.267 Heparin Sodium/Dextrose 25,000 81.667 / 283.267 117.067 / 283.267 units In 500 ml @ 700 UNITS/HR 14 mls/hr IV .Q24H [facility] Rx#: [id number] Sodium Chloride 0.9% 1000ML 1, 1000 / 1000 000 ml @ 80 mls/hr IV .[id number] ONE Rx#:[id number] [id number] SODIUM 1,000 mg In 60 / 60 Dextrose 5% 50 ml @ 120 mls/hr IV Q24H [facility] Rx#:[id number]
[2021-12-02 10:31] LABS: Partial Thromboplastin Ratio 2.3
[2021-12-02 10:32] LABS: Partial Thromboplastin Time 64.1 Seconds (21.0-31.0)
--- NOTE | 2021-12-02 17:23 | Hospitalist Progress Note ---
Date of Service December 02, 2021 Assessment & Plan (1) Acute alteration in mental status: Plan: Patient is an 86 yr female with H/O Alzheimer's, mood disorder, hypertension and other medical problems listed below who presents from [facility] after being found unresponsive prior to admission. Altered mental status ? Syncopal Episode due to arrhythmia; Rule out Seizure --MRI Brain:No acute abnormality is seen, in particular there is no evidence of acute infarct. --CXR:No acute chest disease. --UA not suggestive of UTI --Normal TSH, Ammonia levels --VBG not suggestive of Hypercapnia --No obvious signs of Infection --EEG: EEG was normal during wakefulness and drowsiness. No focal abnormalities, potentially epileptogenic discharges, or abnormal slow activity was seen. --Resumed Buspar, Seroquel at reduced dose as recommended by Psychiatry (Needs for titration down as outpatient) --May need Sleep Study as outpatient -- Added Zyprexa as needed for agitation Reorient frequently to minimize delirium Atrial flutter with controlled response--New diagnosis ECHO: EF 60 to 65%. Aortic valve sclerosis mild, without significant aortic valvular stenosis. Mild tricuspid regurgitation. Doppler findings do not suggest pulmonary hypertension. Normal Troponin Normal TSH Continue Metoprolol Continue IV Heparin>>> transition to apixaban Appreciate Cardiology Input Abnormal blood cultures 1/4 growing alpha strep Likely contamination Discontinue Rocephin Follow-up final cultures (2) Alzheimer's dementia: Plan: Baseline cognition Continue donepezil on memantine (3) Hypertension: Plan: Continue losartan, Metoprolol (4) Hyperlipidemia: Plan: Continue statin (5) Rash: Plan: ? Eczema Erythematous, patchy rash over the past month. Treated with antifungal ointment without improvement Continue topical hydrocortisone Needs follow-up with dermatology upon discharge DVT Px: Apixaban Code status: FULL CODE Disposition Likely tomorrow to [facility] if accepted Admission and Anticipated Discharge Date Admission Date: November 29, 2021 Subjective Patient is seen and examined at bedside Patient is agitated overnight and received Zyprexa Calm and cooperative during my encounter this morning Discussed with cardiology today Denies any chest pain, palpitations, dizziness, nausea, dyspnea, abdominal pain Sitter at bedside Review of Systems Review of Systems: All systems reviewed & are unremarkable except as noted in Subjective Physical Exam Physical Exam: Physical Exam: Vitals signs as noted above General Appearance:Moderately built and nourished, no apparent distress Head: normocephalic, Atraumatic Eyes: normal inspection, EOMI Neck: supple, Trachea midline Respiratory/Chest: Normal breath sounds, CTA, No accessory muscle use Cardiovascular: S1, S2, No murmur Abdomen/GI:Soft, Non tender, Bowel sounds present Extremities/Musculoskeletal:normal inspection, no edema Neurologic/Psych:AAOX1, grossly no focal neurological deficits, Follows simple commands Skin: +erythematous patchy Rash on Nares, thighs, Left UE dorsum Results & Data Results & Data ([facility]) Vital Signs (Past 12 Hours) Vital Signs Temp Pulse Pulse Resp BP Pulse Ox O2 Del Method 12/02/21 16:21 36.8 C 72 18 124/62 97 12/02/21 12:00 36.8 C 86 16 118/69 96 12/02/21 09:32 92 H 12/02/21 06:55 36.3 C L 89 18 114/82 96 Room Air
[2021-12-02] MEDS: APIXABAN 5 MG TABLET PO SCH (18:05)
[2021-12-02] MEDS: SIMVASTATIN 10 MG TAB PO SCH (20:02)
[2021-12-02] MEDS: DONEPEZIL HCL 10 MG TAB PO SCH (20:03)
[2021-12-03 07:40] LABS: Hematocrit (blood only) 38.6 % (34.1-44.9); Hemoglobin 13.1 g/dl (12.0-16.0); Mean Corpuscular Hemoglobin 29.9 pg (25.0-34.0); Mean Corpuscular Hgb Conc 33.9 g/dL (32.0-36.0); Mean Corpuscular Volume 88.1 fL (80.0-100.0); Mean Platelet Volume 11.6 fL (9.4-12.3); Platelet Count 179 K/uL (130-400); RDW Standard Deviation 39.2 fL (36.4-46.3); Red Blood Count 4.38 M/uL (3.93-5.22); White Blood Count 8.48 K/ul (4.8-10.8)
[2021-12-03 08:03] LABS: BUN Creatinine Ratio 17.2 (10-20); Calcium 8.8 mg/dl (8.5-10.1); Creatinine Clr Calc Pharmacy 39.6 ml/min; Est GFR (African American) 60.6 ml/min; Est GFR (Non-African American) 52.3 ml/min; Magnesium 2.1 mg/dl (1.7-2.4); Potassium 3.7 mmol/L (3.5-5.1)
[2021-12-03] MEDS: busPIRone 5 MG TAB PO SCH (08:28)
[2021-12-03] MEDS: HYDROCORTISONE 1% CRM 30 GM TUBE EXT SCH (08:28)
[2021-12-03] MEDS: METOPROLOL TARTRATE 25 MG TAB PO SCH (08:28)
[2021-12-03] MEDS: QUEtiapine FUMARATE 25 MG TABLET PO SCH (08:28)
[2021-12-03] MEDS: APIXABAN 5 MG TABLET PO SCH (08:29)
[2021-12-03] MEDS: CEROVITE ADV FORMULA TAB PO SCH (08:29)
[2021-12-03] MEDS: MEMANTINE HCL 5 MG TAB PO SCH (08:30)
[2021-12-03] MEDS ORDERED: METOPROLOL TARTRATE 25 MG TAB PO ONE (09:11)
--- NOTE | 2021-12-03 09:19 | Cardiology Progress Note ---
Date of Service December 03, 2021 Assessment & Plan (1) Atrial flutter with controlled response: (2) Acute alteration in mental status: (3) Alzheimer's dementia: (4) Rash: Plan 86-year-old female admitted with change in mental status. No evidence of overt syncope. Telemetry reveals atrial flutter with controlled ventricular response at rest, which is a new diagnosis. Rates increase to 150's with minimal exertion. will increase metoprolol to 50 mg in the morning and 25 mg in the evening. Patient remains asymptomatic. IV heparin discontinued. Started Eliquis 5 mg BID. ARLENE discussed cognitive status with Robert. Accepted. Stable for discharge from cardiac perspective. Case discussed with Dr. Salazar. Admission and Anticipated Discharge Date Admission Date: November 29, 2021 Supervising Physician Co-Signing Physician Notes Patient seen examined at the bedside. Poor historian due to underlying dementia. Offers no concerns/complaints. PE: GEN: VSS. Heart: Irregular rhythm, Normal S1S2. No murmur. Lungs: Clear bilateral, no rales, rhonchi, wheeze. Extremities: No edema. A/P: Agree with above PA-C history, physical exam, assessment and plan. Telemetry reviewed demonstrating rate controlled atrial flutter at rest with RVR during activity. Titrate metoprolol to 50 mg in the morning, 25 mg in the edilma jenaro today. Continue Eliquis. Subjective Patient resting in chair this morning. Pleasant and cooperative. No longer requiring 1:1 sitter. Denies complaints. No chest pain or SOB. No palpitations or dizziness. No orthopnea, PND or edema. HR's increase with minimal exertion this morning. Currently 130-140's after moving from bed to chair. Review of Systems Review of Systems: Unobtainable due to cognitive status (Underlying dementia) Physical Exam Constitutional: well nourished; no acute distress Respiratory: normal respiratory effort; no respiratory distress, no labored breathing and no retractions Auscultation: lungs clear to auscultation bilaterally; no crackles, no rales, no rhonchi and no wheezes Cardiovascular: Rate/Rhythm: regular rate, regular rhythm and + tachycardic Heart Sounds: normal S1 and normal S2; no murmur Vessels: no JVD Extremities: no edema Gastrointestinal (Abdomen): Inspection/Auscultation: abdomen normal to ins pection and normal bowel sounds; abdomen not distended Percussion/Palpation: abdomen soft; abdomen nontender, no guarding and abdomen not rigid Skin: + rash Neurologic: CN's II-XI intact bilaterally and moves all extremities; no focal motor deficits Motor/Sensory: no tremor Results & Data ([facility]) Vital Signs (Past 12 Hours) Vital Signs Temp Pulse Pulse Resp BP BP Pulse Ox 12/03/21 07:57 36.8 C 90 17 104/72 94 12/03/21 07:17 97 H 12/03/21 07:17 12/03/21 04:25 36.8 C 86 16 112/77 90 12/02/21 23:00 69 12/02/21 23:17 36.5 C 73 16 120/87 95 O2 Del Method 12/03/21 07:57 Room Air 12/03/21 07:17 12/03/21 07:17 Room Air 12/03/21 04:25 Room Air 12/02/21 23:00 12/02/21 23:17 Room Air Laboratory Results Coagulation 12/02/21 Range/Units 09:43 APTT 64.1 H* (21.0-31.0) Seconds CBC 12/03/21 Range/Units 05:46 WBC 8.48 (4.8-10.8) K/ul RBC 4.38 (3.93-5.22) M/uL Hgb 13.1 (12.0-16.0) g/dl Hct 38.6 (34.1-44.9) % Plt Count 179 (130-400) K/uL Comprehensive Metabolic Panel 12/03/21 Range/Units 05:46 Sodium 139 (136-145) mmol/L Potassium 3.7 (3.5-5.1) mmol/L Chloride 107 (98-107) mmol/L Carbon Dioxide 24 (21-32) mmol/L BUN 17 (6-23) mg/dl Creatinine 0.99 (0.6-1.2) mg/dl Glucose 76 (70-99(Fasting)) mg/dl Calcium 8.8 (8.5-10.1) mg/dl Intake and Output 12/02/21 12/03/21 12/03/21 22:59 06:59 14:59 Intake Total 50 / 187 Output Total 550 / 1175 175 / 1175 Balance -500 / -988 -175 / -988 Intake: Oral 50 / 50 Output: Urine Amount (Catheter) 550 / 1175 175 / 1175 Booth/Indwelling 550 / 1175 175 / 1175 Other: Weight 65.7 kg Weight Measurement Method Built in [facility] Diagnostic Findings Telemetry reviewed: Persistent atrial flutter with rates ranging 90-140's. Typically around 90-100 at rest, but increases to 130'-160's with minimal exertion. No bradycardia or pauses. Medications Administered Current Inpatient Medications Acetaminophen (Acetaminophen 325 Mg Tab) 650 mg PO Q4H PRN PRN Reason: Pain or Fever Stop: 12/29/21 12:32 Apixaban (Apixaban 5 Mg Tablet) 5 mg PO BID JUAN C Stop: 01/01/22 17:59 Last Admin: 12/03/21 08:29 Dose: 5 mg Buspirone HCl (Buspirone 5 Mg Tab) 10 mg PO BID JUAN C Stop: 12/31/21 20:59 Last Admin: 12/03/21 08:28 Dose: 10 mg Donepezil HCl (Donepezil Hcl 10 Mg Tab) 10 mg PO HS JUAN C Stop: 12/29/21 20:59 Last Admin: 12/02/21 20:03 Dose: 10 mg Hydrocortisone (Hydrocortisone 1% Crm 30 Gm Tube) 1 appln EXT BID JUAN C Stop: 12/29/21 20:59 Last Admin: 12/03/21 08:28 Dose: 1 appln Memantine (Memantine Hcl 5 Mg Tab) 5 mg PO BID JUAN C Stop: 12/29/21 20:59 Last Admin: 12/03/21 08:30 Dose: 5 mg Metoprolol Tartrate (Metoprolol Tartrate 25 Mg Tab) 25 mg PO QPM JUAN C Stop: 01/02/22 20:59 Metoprolol Tartrate (Metoprolol Tartrate 50 Mg Tab) 50 mg PO QAM JUAN C Stop: 01/03/22 08:59 Metoprolol Tartrate (Metoprolol Tartrate 25 Mg Tab) 25 mg PO ONE ONE Stop: 12/03/21 09:12 Multivitamins/Minerals (Cerovite Adv Formula Tab) 1 tab PO DAILY JUAN C Stop: 12/30/21 08:59 Last Admin: 12/03/21 08:29 Dose: 1 tab Olanzapine (Olanzapine 10 Mg/2.1 Ml Sdv) 2.5 mg IM Q4H PRN PRN Reason: Agitation Stop: 01/01/22 07:44 Polyethylene Glycol (Polyethylene (Miralax) 17 Gm Pack) 17 gm PO DAILY PRN PRN Reason: Constipation Stop: 12/29/21 12:32 Quetiapine Fumarate (Quetiapine Fumarate 25 Mg Tablet) 25 mg PO BID JUAN C Stop: 12/31/21 20:59 Last Admin: 12/03/21 08:28 Dose: 25 mg Simvastatin (Simvastatin 10 Mg Tab) 10 mg PO HS [facility] Stop: 12/29/21 20:59 Last Admin: 12/02/21 20:02 Dose: 10 mg
--- NOTE | 2021-12-03 12:19 | Discharge Summary ---
Date of Service December 03, 2021 Admission HPI Per Admitting Provider This is an 86-year-old female with PMH of Alzheimer's, mood disorder, hypertension and other medical problems listed below who presents from [facility] after being found unresponsive this morning. History primarily obtained from [id number] and BROOKE Ayala at bedside, who states he visited patient last evening and she was in normal state of health. Was found unresponsive this morning at facility and EMS was contacted. Pupils appeared pinpoint and patient was given 2 mg of Narcan without improvement. Was bagged in transit due to some episodes of apnea. Was initially not responding to commands. After returning from CAT scan, patient was back to normal mentation which is alert and oriented to person in setting of dementia. Knows who family is at bedside and that she is in the hospital although unsure exact location. Denies any pain or discomfort but unable to obtain full ROS due to patient's cognitive state. Requiring orientation throughout interview. Confirmed CODE STATUS is full code with Jamie/BROOKE at bedside. He also notes she has had a rash for the past month that started under her nose and is now noticeable on left hand and bilateral anterior thighs. Nontender, not pruritic. Admission Exam Per Admitting Provider General Appearance:WD/WN, vitals as above, NAD, sitting up in bed, pleasantly confused, following commands Head: normocephalic, atraumatic Eyes:normal inspection, PERRL, conjunctivae normal ENT: external ear and nose normal, oropharynx normal Neck: normal visual inspection, trachea midline, no thyromegaly Respiratory:normal respiratory effort, lungs clear to auscultation, no wheeze, rales, rhonchi. No accessory muscle use Cardiovascular: regular rate, rhythm, no murmur, normal peripheral pulses, no BLE edema. Vessels: no JVD Chest: normal inspection of chest Abdomen/GI: normal bowel sounds, soft, nontender, no hepatosplenomegaly :Booth catheter Extremities/Musculoskeletal: no cyanosis or clubbing, extremities motor strength 5/5 Neurologic: PERRL, EOMI, accommodation nl, no face palsy, no dysarthria, CN's II-XI intact bilaterally and moves all extremities Psychiatric:A+Ox1, pleasantly confused requiring redirection Skin: normal color, warm/dry. + multiple patch-like areas of erythema with overlying scaling under nose, on L dorsum of hand and bilateral anterior thighs Principal Diagnosis Unresponsive episode, A flutter, Alzheimer's dementia Discharge Exam General: Sitting comfortably in bed, not in distress, on room air HEENT: EOMI, RODRIGUEZ, MMM Chest: Clear breath sounds bilaterally, no wheezes or crackles CVS: Regular rate and rhythm, normal heart sounds, no murmur Abdomen: Soft, non tender, not distended, normal bowel sounds Neuro: Pleasantly confused, Awake, alert, conversing well, moving extremities independently Extremities: No edema Skin: erythematous patches in thighs- 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, cooperative Discharge Data Allergies Allergy/AdvReac Type Severity Reaction Status Date / Time indomethacin AdvReac Unknown Verified 11/29/21 10:15 Consultations 11/29/21 10:45 ED Decision to Admit Stat 11/30/21 07:51 Consult Cardiology Routine Ordered Studies 11/29/21 08:59 CT head/brain wo con Stat 11/29/21 10:54 MRI Brain [MR brain wo/w con] Routine Laboratory Results WBC 8.48 K/ul (4.8-10.8) 12/03/21 05:46 RBC 4.38 M/uL (3.93-5.22) 12/03/21 05:46 Hgb 13.1 g/dl (12.0-16.0) 12/03/21 05:46 POC Hgb 15.3 g/dl (12.0-16.0) 11/29/21 09:20 Hct 38.6 % (34.1-44.9) 12/03/21 05:46 POC Hct 45 % (37-47) 11/29/21 09:20 MCV 88.1 fL (80.0-100.0) 12/03/21 05:46 MCH 29.9 pg (25.0-34.0) 12/03/21 05:46 MCHC 33.9 g/dL (32.0-36.0) 12/03/21 05:46 RDW Std Deviation 39.2 fL (36.4-46.3) 12/03/21 05:46 RDW Coeff of Guera 12.0 % (11.5-14.5) 12/03/21 05:46 Plt Count 179 K/uL (130-400) 12/03/21 05:46 MPV 11.6 fL (9.4-12.3) 12/03/21 05:46 Immature Gran % (Auto) 2.2 % 11/29/21 09:16 Neut % (Auto) 53.0 % 11/29/21 09:16 Lymph % (Auto) 25.4 % 11/29/21 09:16 Mckinley % (Auto) 18.6 % 11/29/21 09:16 Eos % (Auto) 0.5 % 11/29/21 09:16 Baso % (Auto) 0.3 % 11/29/21 09:16 Neut # (Auto) 5.96 K/uL (1.4-6.5) 11/29/21 09:16 Lymph # (Auto) 2.85 K/uL (1.2-3.4) 11/29/21 09:16 Mckinley # (Auto) 2.09 K/uL (0.24-0.82) H 11/29/21 09:16 Eos # (Auto) 0.06 K/uL (0-0.50) 11/29/21 09:16 Baso # (Auto) 0.03 K/uL (0-0.2) 11/29/21 09:16 Immature Gran # (Auto) 0.25 K/uL (0.00-0.02) H 11/29/21 09:16 APTT 64.1 Seconds (21.0-31.0) H* 12/02/21 09:43 PTT Ratio 2.3 12/02/21 09:43 VBG pH 7.36 (7.36-7.41) 11/29/21 10:12 VBG pCO2 50 mmHg (38-50) 11/29/21 10:12 VBG pO2 25 mmHg 11/29/21 10:12 VBG HCO3 28 mmol/L 11/29/21 10:12 VBG O2 Saturation < 60.0 % 11/29/21 10:12 VBG Base Excess 1.9 mEq/L 11/29/21 10:12 POC Sodium 137 mmol/L (135-144) 11/29/21 09:20 Sodium 139 mmol/L (136-145) 12/03/21 05:46 POC Potassium 5.1 mmol/L (3.3-5.0) H 11/29/21 09:20 Potassium 3.7 mmol/L (3.5-5.1) 12/03/21 05:46 POC Chloride 103 mmol/L (101-112) 11/29/21 09:20 Chloride 107 mmol/L (98-107) 12/03/21 05:46 Carbon Dioxide 24 mmol/L (21-32) 12/03/21 05:46 POC Total CO2 26 mmol/L (24-31) 11/29/21 09:20 Anion Gap 8 (3-11) 12/03/21 05:46 POC Anion Gap 15.0 mmol/L (16-25) L 11/29/21 09:20 POC BUN 24 mg/dl (7-18) H 11/29/21 09:20 BUN 17 mg/dl (6-23) 12/03/21 05:46 Creatinine 0.99 mg/dl (0.6-1.2) 12/03/21 05:46 POC Creatinine 1.0 mg/dl (0.6-1.3) 11/29/21 09:20 Est Cr Clr Drug Dosing 39.6 ml/min 12/03/21 05:46 Est GFR ( Amer) 60.6 ml/min 12/03/21 05:46 Est GFR (Non-Af Amer) 52.3 ml/min 12/03/21 05:46 BUN/Creatinine Ratio 17.2 (10-20) 12/03/21 05:46 Glucose 76 mg/dl (70-99(Fasting)) 12/03/21 05:46 POC Glucose (other) 103 mg/dl (70-99) H 11/29/21 09:20 Lactate 1.2 mmol/L (0.4-2.0) 11/29/21 10:26 Calcium 8.8 mg/dl (8.5-10.1) 12/03/21 05:46 POC Ioniz Calcium Tiff 1.09 mmol/l (1.12-1.32) L 11/29/21 09:20 Magnesium 2.1 mg/dl (1.7-2.4) 12/03/21 05:46 Total Bilirubin 0.8 mg/dl (0.2-1.0) 11/29/21 09:16 AST 28 U/L (13-39) 11/29/21 09:16 ALT 18 U/L (7-52) 11/29/21 09:16 Alkaline Phosphatase 123 U/L (34-104) H 11/29/21 09:16 Ammonia 29.0 umol/L (18-72) 11/29/21 10:09 Total Creatine Kinase 37 U/L (26-192) 11/29/21 09:16 Troponin I High Sens 9.4 pg/ml (0-14) 11/29/21 09:16 Total Protein 8.4 gm/dl (6.0-8.3) H 11/29/21 09:16 Albumin 4.4 gm/dl (3.4-5.0) 11/29/21 09:16 Globulin 4.0 gm/dl (2.5-4.0) 11/29/21 09:16 Albumin/Globulin Ratio 1.1 (0.9-2) 11/29/21 09:16 TSH 0.979 uIu/ml (0.300-4.500) 11/29/21 09:16 Urine Color Yellow 11/29/21 09:35 Urine Appearance Clear (Clear) 11/29/21 09:35 Urine pH 6.5 (4.5-7.5) 11/29/21 09:35 Ur Specific Dolphin 1.016 (1.000-1.030) 11/29/21 09:35 Urine Protein 1+ (Negative) H 11/29/21 09:35 Urine Glucose (UA) Negative (Negative) 11/29/21 09:35 Urine Ketones Negative (Negative) 11/29/21 09:35 Urine Blood Negative (Negative) 11/29/21 09:35 Urine Nitrite Negative (Negative) 11/29/21 09:35 Urine Bilirubin Negative (Negative) 11/29/21 09:35 Urine Urobilinogen Negative (Negative) 11/29/21 09:35 Ur Leukocyte Esterase Trace (Negative) H 11/29/21 09:35 Urine WBC (Auto) 1-5 /hpf (0-5) 11/29/21 09:35 Urine RBC (Auto) 0-4 /hpf (0-4) 11/29/21 09:35 U Hyaline Cast (Auto) 0 /lpf (0-5) 11/29/21 09:35 U Epithel Cells (Auto) 10-20 /lpf (0-5) H 11/29/21 09:35 Urine Bacteria (Auto) Negative (Negative) 11/29/21 09:35 Nasal Screen MRSA (PCR) Negative (Negative) 11/29/21 Unknown Salicylates < 3.0 mg/dl (3.0-30) L 11/29/21 09:16 Acetaminophen < 3 ug/ml (10-30) L 11/29/21 09:16 Ethyl Alcohol mg/dL < 10.0 mg/dl (<10.0) 11/29/21 10:09 SARS-CoV-2, RNA, NAAT NEGATIVE (NEGATIVE) 12/02/21 17:55 Streptococcus sp PCR DETECTED (NotDetected) A 11/29/21 09:13 Bld Cult ID Panel PCR See PCR Comment (NotDetected) 11/29/21 09:[address] 11/29/21 08:59 CT head/brain wo con CLINICAL HISTORY: ams Technique: Contiguous axial CT images of the head were acquired from the base of the skull to the vertex without intravenous contrast administration. Images were viewed in brain, subdural and bone windows. Automated dose lowering techniques and/or adjustment according to patient size were utilized for this exam. Comparison: None available at the time of this dictation. Findings: Areas of decreased attenuation are present in the periventricular and subcortical white matter bilaterally consistent with small vessel ischemic disease. Generalized cerebral atrophy with commensurate enlargement of the ventricles, sulci, and cisterns is also present. There is no acute intracranial hemorrhage or evidence of acute territorial infarction. No shift of the midline structures, mass effect, or extra-axial abnormalities are shown. Atherosclerotic calcifications are present in the intracranial segments of the internal carotid arteries. Imaged portions of the paranasal sinuses and mastoid air cells are clear. The orbits appear normal. There are no acute fractures of the calvaria or scalp swelling. Impression: No acute intracranial hemorrhage, no evidence of acute territorial infarction or other acute intracranial disease process. ACT 112: Negative or not required by law. Electronically signed by: Yogi Jeffers M.D. 11/29/2021 10:00 AM Chest X-Ray 11/29/21 09:00 XR chest 1V portable CLINICAL HISTORY: ams TECHNIQUE: Single frontal radiograph of the chest was obtained. Comparison: None available at the time of this dictation. FINDINGS: No lines and tubes are seen. Calcified aortic knob is seen. The lungs are clear. No evidence of pleural effusion or pneumothorax. IMPRESSION: No acute chest disease. ACT 112: Negative or not required by law. Electronically signed by: Yogi Jeffers M.D. 11/29/2021 10:23 AM Brain MRI 11/29/21 10:54 MR brain wo/w con CLINICAL HISTORY: unresponsive episode TECHNIQUE: Multiplanar and multisequence MR images of the brain were obtained prior to and following administration of gadolinium contrast. Comparison: Comparison is made to CT head 12/01/2021 FINDINGS: No abnormal restricted diffusion is identified. Foci of T2 and FLAIR hyperintensity are noted in the paraventricular areas consistent with chronic small vessel ischemic disease. Ex vacuo ventriculomegaly and sulcal enlargement is noted compatible with diffuse encephalomalacia. No mass or abnormal enhancement is seen. There is no mass effect or midline shift. There is no evidence of acute intraparenchymal hemorrhage. No extra axial fluid collections are seen. The corpus callosum, pituitary gland, and cerebellar tonsils appear grossly unremarkable. Flow voids of the major intracranial arterial vessels are identified. The imaged portions of the paranasal sinuses, mastoid air cells, and orbits are unremarkable. IMPRESSION: No acute abnormality is seen, in particular there is no evidence of acute infarct. ACT 112: Negative or not required by law. Electronically signed by: Yogi Jeffers M.D. 11/29/2021 7:42 PM Hospital Course (1) Acute alteration in mental status: Patient is an 86 yr female with H/O Alzheimer's, mood disorder, hypertension and other medical problems listed below who presents from [facility] after being found unresponsive prior to admission. 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 Found to be in A flutter and seen by cardio, otherwise other work up as detailed below negative. --MRI Brain:No acute abnormality is seen, in particular there is no evidence of acute infarct. --CXR:No acute chest disease. --UA not suggestive of UTI --Normal TSH, Ammonia levels --VBG not suggestive of Hypercapnia --No obvious signs of Infection --EEG normal during wakefulness and drowsiness. No focal abnormalities, potentially epileptogenic discharges, or abnormal slow activity was seen. - Seen by psychiatry- resumed Buspar, Seroquel at reduced dose (Needs OP follow up for titration) Atrial flutter with controlled response--New diagnosis ECHO: EF 60 to 65%. Aortic valve sclerosis mild, without significant aortic valvular stenosis. Mild tricuspid regurgitation. Doppler findings do not suggest pulmonary hypertension. Normal Troponin Normal TSH Lopressor increased to 50 mg q am dn 25 mg q pm per cardio Started on eliquis per cardio- POA agrees per chart review. OP cardio follow up Abnormal blood cultures-1/ growing alpha strep, likely contamination and empir ic rocephin discontinued. remains stable. (2) Alzheimer's dementia: Baseline cognition, Continue donepezil and memantine (3) Hypertension: Continue losartan, Metoprolol (4) Hyperlipidemia: Continue statin (5) Rash: ? Eczema Erythematous, patchy rash over the past month. Treated with antifungal ointment without improvement Improving with topical hydrocortisone and will be continued. Needs follow-up with dermatology upon discharge Discharging back to [facility]. Comfortable and stable for discharge. New meds and med changes sent to pharmacy. Total Time Total Time Spent Total Time Spent (In Minutes): 35 Discharge Plan Discharge Items Patient Disposition: Home - Self-Care Reason For Visit: UNRESPONSIVE EPISODE Discharge Diagnosis: Unresponsive episode, A flutter with controlled response, Alzheimer's dementia Activity: Resume your previous activity Non-emergency contact: Primary Care Provider Call non-emergency contact if: you have any medication questions, your symptoms worsen and you have a fever Follow-up/Referrals: Maksim Lam [Primary Care Provider] - Diet: Regular Addtl Attending Provider Instructions: Continue eliquis 1 tab twice daily Continue metoprolol twice daily (increased to 50 mg in the morning and 25 mg at night) Seroquel has been decreased to 25 mg twice daily Buspar has been decreased to 10 mg twice daily Follow up with your psychiatry for further management of your seroquel and buspar. Continue the steroid cream for the rash and follow up with dermatology Follow up cardiology for your atrial flutter. Pending Studies at Discharge: No Stand-Alone Forms: [employer], Smoking Cessation Medications and DC Order Prescriptions: New Eliquis 5 mg Tablet 5 mg PO BID Qty: 60 0RF buspirone 5 mg Tablet 10 mg PO BID Qty: 60 0RF hydrocortisone 1 % Ointment 1 applic EXT BID Qty: 32 0RF Continued donepezil 10 mg Tablet 10 mg PO HS simvastatin 10 mg Tablet 10 mg PO HS cranberry 500 mg Capsule 500 mg PO DAILY Rx Instructions: administer with meals memantine 5 mg Tablet 5 mg PO BID PreserVision AREDS-2 250-90-40-1 mg Capsule 1 cap PO BID Certa-Delores 1 tab PO DAILY Changed metoprolol tartrate 25 mg Tablet 25 mg PO UD Qty: 60 0RF Rx Instructions: 50 mg am and 25 mg pm quetiapine 50 mg Tablet 25 mg PO BID Qty: 30 0RF Discontinued buspirone 30 mg Tablet 30 mg PO BID clotrimazole-betamethasone [Lotrisone] 1-0.05 % Cream 1 applic TOPICAL BID Rx Instructions: Under Nose and on Left Thumb Discharge Orders: Discharge Order (Routine); Ordered 12/03/21 Ordered By: Andrei Caban Admission Data Admit Date/Time: 11/29/21 10:54 Attending Provider: Andrei Caban Admit Provider: Zachariah Ruiz Primary Care Provider: Maksim Lam Other Providers: Zachariah Ruiz ; Franco Salazar Other Interventions: Discharge Summary Assessment (RN) Last Done: 12/03/21 11:34
[2021-12-03] MEDS ORDERED: METOPROLOL TARTRATE 25 MG TAB PO SCH (21:00)
[2021-12-04] MEDS ORDERED: METOPROLOL TARTRATE 50 MG TAB PO SCH (09:00)
== END 2021-12-03 12:12 | disposition home or self-care (01) | DRG 310 ==
LOC: ED 08:57 → SUATTDRO 10:54 → 2S 10:54
DX: I48.92 Unspecified atrial flutter; L40.9 Psoriasis, unspecified; L30.9 Dermatitis, unspecified; R41.82 Altered mental status, unspecified; Z88.8 Allergy status to other drugs, medicaments and biological substances; Z87.891 Personal history of nicotine dependence; F02.80 Dementia in other diseases classified elsewhere, unspecified severity, without behavioral disturbance, psychotic disturbance, mood disturbance, and anxiety; I10 Essential (primary) hypertension; E78.5 Hyperlipidemia, unspecified; G30.9 Alzheimer's disease, unspecified

== ENCOUNTER 2024-06-03 23:21 | Inpatient (IN) ==
[2024-06-03] MEDS: ALBUT/IPRATROP 3MG/0.5MG NEB 3 ML VIAL NEB STA (23:44)
[2024-06-04 00:02] LABS: iSTAT Creatinine 1.1 mg/dl (0.6-1.3); iSTAT Hemoglobin 12.2 g/dl (12.0-16.0); iSTAT Ionized Calcium 1.09 mmol/l (1.12-1.32); iSTAT Potassium 3.9 mmol/L (3.3-5.0)
[2024-06-04 00:17] LABS: Hematocrit (blood only) 36.5 % (37.0-47.0); Hemoglobin 11.8 g/dl (12.0-16.0); Mean Corpuscular Hemoglobin 29.1 pg (25.0-34.0); Mean Corpuscular Hgb Conc 32.3 g/dL (32.0-36.0); Mean Corpuscular Volume 90.1 fL (80.0-100.0); Mean Platelet Volume 11.5 fL (9.4-12.4); Platelet Count 186 K/uL (130-400); RDW Coefficient of Variation 13.1 % (11.5-14.5); RDW Standard Deviation 43.5 fL (36.4-46.3); Red Blood Count 4.05 M/uL (4.20-5.40); White Blood Count 13.52 K/ul (4.8-10.8)
[2024-06-04 00:19] LABS: iSTAT Arterial Blood Gas HCO3 22 meg/L (19-24); iSTAT Arterial Blood Gas pCO2 38 mmHg (35-46); iSTAT Arterial Blood Gas pH 7.36 (7.35-7.45); iSTAT Arterial Blood Gas pO2 101 mmHg (80-95); iSTAT Carbon Dioxide 23 mmol/L (24-31); iSTAT Hematocrit 34 % (37-47); iSTAT Hemoglobin 11.6 g/dl (12.0-16.0); iSTAT Potassium 3.9 mmol/L (3.3-5.0); iSTAT Sodium 140 mmol/L (135-144)
[2024-06-04 00:25] LABS: INR 1.2 (0.9-1.1); Partial Thromboplastin Ratio 1.1; Partial Thromboplastin Time 30 Seconds (21-31); Prothrombin Time 13.2 Seconds (9.0-12.0)
[2024-06-04 00:35] LABS: Albumin Level 3.8 gm/dl (3.4-5.0); BUN Creatinine Ratio 28.7 (10-20); Bilirubin Direct 0.1 mg/dl (0-0.2); Bilirubin,Total 0.6 mg/dl (0.2-1.0); Calcium 9.2 mg/dl (8.6-10.3); Creatinine Clr Calc Pharmacy 34.8 ml/min; Magnesium 2.1 mg/dl (1.7-2.4); Potassium 3.9 mmol/L (3.5-5.1); Total Protein 7.4 gm/dl (6.0-8.3)
[2024-06-04 00:43] LABS: Troponin I High Sensitivity 23.9 pg/ml (0-14)
[2024-06-04 01:01] LABS: Appearance Urine Cloudy (Clear); Bacteria Urine Automated 4+ (None Seen); Bilirubin Urine Negative (Negative); Blood Urine 1+ (Negative); Color Urine Yellow; Glucose Urine UA Negative (Negative); Ketones Urine 2+ (Negative); Leukocyte Esterase Urine 3+ (Negative); Nitrite Urine Positive (Negative); Protein Urine 1+ (Negative); Urobilinogen Urine Negative (Negative); WBC Urine Automated >50 /hpf (0-5)
[2024-06-04] MEDS ORDERED: VANCOMYCIN CONSULT ACTIVE PRN (01:07)
[2024-06-04 01:11] LABS: Adenovirus PCR Not Detected (NotDetected); Bordetella parapertussis PCR Not Detected (NotDetected); Bordetella pertussis PCR Not Detected (NotDetected); Chlamydia pneumoniae PCR Not Detected (NotDetected); Coronavirus 229E PCR Not Detected (NotDetected); Coronavirus CoV-2 (COVID19)PCR Not Detected (NotDetected); Coronavirus HKU1 PCR Not Detected (NotDetected); Coronavirus NL63 PCR Not Detected (NotDetected); Coronavirus OC43PCR Not Detected (NotDetected); Human Metapneumovirus PCR Not Detected (NotDetected); Influenza A (H3) PCR DETECTED (NotDetected); Influenza B PCR Not Detected (NotDetected); Mycoplasma pneumoniae PCR Not Detected (NotDetected); Parainfluenza Virus 1 PCR Not Detected (NotDetected); Parainfluenza Virus 2 PCR Not Detected (NotDetected); Parainfluenza Virus 3 PCR Not Detected (NotDetected); Parainfluenza Virus 4 PCR Not Detected (NotDetected); Respiratory Syncytial VirusPCR Not Detected (NotDetected); Rhinovirus/Enterovirus PCR Not Detected (NotDetected)
[2024-06-04 01:15] LABS: Basophils # (auto) 0.02 K/uL (0.00-0.20); Basophils % (auto) 0.1 %; Eosinophils # (auto) 0.05 K/uL (0.00-0.50); Eosinophils % (auto) 0.4 %; Immature Granulocytes # (auto) 0.16 K/uL (0.01-0.20); Immature Granulocytes % (auto) 1.2 %; Lymphocytes # (auto) 1.42 K/uL (1.20-3.40); Lymphocytes % (auto) 10.5 %; Monocytes # (auto) 6.23 K/uL (0.11-0.59); Monocytes % (auto) 46.1 %; Neutrophils # (auto) 5.64 K/uL (1.40-6.50); Neutrophils % (auto) 41.7 %; Polychromasia 1+
[2024-06-04] MEDS: PIPERACILLIN/TAZOBACTAM 4.5 GM/100 ML BAG IV ONE (01:22)
[2024-06-04] MEDS: SODIUM CHLORIDE 0.9% 500 ML IV ONE (01:23)
--- NOTE | 2024-06-04 01:49 | XRay Report ---
EXAM: XR chest 1V portable CLINICAL HISTORY: Sepsis. TECHNIQUE: An X-ray image of the chest is obtained in AP projection. COMPARISON: 11/29/2021 FINDINGS: Pulmonary Parenchyma: Prominent central bronchovascular markings with peribronchial thickening. Suspected left lower zone opacity. Obliteration of the left costophrenic angle. No evidence of right pleural effusion or pleural thickening. Mediastinum: No mediastinal widening or masses. Bony Thorax: Degenerative changes of the visualized skeleton. Soft Tissues: Postsurgical clips are noted in the mid and lower central chest. IMPRESSION: 1. Prominent central bronchovascular markings with peribronchial thickening. Clinical correlation is advised to assess for pulmonary congestion. (New finding) 2. Left lower zone faint opacity. (New finding). Could be related to pulmonary congestion, however, clinical correlation is advised to assess for an infectious process. 3. Mild left-sided pleural effusion/thickening. (Stable) Electronically signed by Ashlyn De La Cruz 06-04-2024 01:48 AM
[2024-06-04] MEDS: OSELTAMIVIR PHOSPHATE 75 MG CAP PO STA (02:13)
[2024-06-04] MEDS: VANCOMYCIN HCL 1,250 MG in SODIUM CHLORIDE 0.9% 500 ML IV ONE (02:16)
[2024-06-04] MEDS: SODIUM CHLORIDE 0.9% 1,000 ML IV SCH ×2 (02:18→05:41)
--- NOTE | 2024-06-04 02:41 | Emergency Department Note ---
Impression & Plan Hypoxia, Atrial flutter with controlled response, Influenza A, Acute UTI (urinary tract infection), Pneumonia ED Provider Note NAME: LESLIE MATAMOROS AGE: 89 SEX: Female INFORMANT: Patient and EMS ED PROVIDER(S): Michael Sanchez MD CHIEF COMPLAINT: Weakness PLAN: Disposition: Admitted Outpatient prescription management: none Referral: None MEDICAL DECISION MAKING: Patient presented because of weakness and she was noted to be hypoxic. She had a cough and some flulike symptoms. Patient was found to have an infiltrate developing on chest x-ray. Urinalysis was concerning for UTI. Patient had a atrial flutter on ECG. She had an acceptable ventricular rate and did not require rate control. She was gently hydrated. She had a slight elevation of her BNP and a normal lactate. Aggressive hydration was held. Patient was treated with broad-spectrum antibiotics to cover her lungs as well as urine. Patient was given Tamiflu after her BioFire revealed the presence of influenza. Consultation was made with the [facility] service, Dr. Domingo. Patient was evaluated in the ER and admitted for further management. Care/management discussed with: change manager Level of care consideration(s): After review of the information above and other included data, I feel the patient requires escalation of care to admission. Triage Nursing notes: reviewed and agree them. Vital Signs: reviewed and remarkable for hypoxia Additional History obtained from: EMS Chronic Medical/Social Conditions affecting care: Dementia Prior/ Outside/ External records reviewed: EMS run sheet from transportation reviewed. Patient received DuoNeb. Differential Diagnosis: Infection, dehydration, metabolic abnormality, hypo/hyperglycemia, electrolyte disturbance, anemia, hypoxia, cardiac sources, intracerebral event, toxicologic, neurologic, as well as other pathologies. Diagnostics, independently interpreted by me: ECG: Twelve-lead ECG reveals atrial flutter with variable block at 116 bpm. Left axis deviation. Nonspecific interventricular block present. Inferior Q waves. Cardiac Monitoring: Cardiac monitoring ordered by me: The patient was placed on continuous cardiac monitoring and observed. It revealed atrial flutter at 92 bpm. Medical decision rules: none Imaging studies: Chest x-ray is concerning for right basilar infiltrate. Possible left basilar infiltrate present. I refer you to the EMR for further details. HPI: 89 year old Female arrives for evaluation of weakness and hypoxia. Patient seemed to be weaker than usual and had been coughing for a few days. She also had significant nasal congestion. Her room air saturation was in the 70s. Patient was given a DuoNeb and supplemental oxygen and route. Patient denies any pain. She does have a history of dementia and is oriented to self. EMS noted the patient appeared to be in an A-fib/flutter but noted she did not have a history of the same. There is no reported vomiting or diarrhea. Patient denies any chest pain or abdominal pain. No headache. History is limited secondary to patient dementia. And medical acuity. PAST MEDICAL HISTORY: See Below, dementia PAST SURGICAL HISTORY: See Below, SOCIAL HISTORY: See Below, retired HOME MEDICATIONS: See Below ALLERGIES: See Below VITALS: See Below PHYSICAL EXAMINATION: GENERAL: Awake, alert, ill-appearing, in no distress HENT: Normocephalic, atraumatic. Oropharynx unremarkable. EYES: Normal conjunctiva. Sclera non-icteric. NECK: Inspection normal. Non-tender. Supple. No nuchal rigidity. FROM. No masses. RESPIRATORY: Diminished in the bases with rhonchi and rales noted in the right. Increased respiratory effort. CARDIAC: Normal rate. Normal rhythm. No murmurs. No rubs. Extremities warm and well perfused. Pulses equal. Mild JVD. GI: Soft, non-distended. No tenderness to palpation. No rebound or guarding. No masses. MUSCULOSKELETAL: Atraumatic. Chest examination reveals no tenderness. The back is kyphotic on inspection without obvious abnormality. There is no CVA tenderness to palpation. No joint edema. LOWER EXTREMITIES: Calves are equal size bilaterally and non-tender. Trace edema. No discoloration. NEURO: Demented sensorium. No focal sensory or motor deficits noted. SKIN: No rash or jaundice noted. PROCEDURES: none CRITICAL CARE: I have personally spent 30 minutes of critical care time in the direct management of this patient. This includes bedside care, interpretation of diagnostic studies, and testing, discussion with consultants, patient, and other required patient management activities. These minutes are in excess of all separately billable procedures. OBSERVATION NOTE: none Past Med/Surg History Problem List (Updated 06/04/24 @ 02:41 by Michael Sanchez MD) Pneumonia (Acute) Acute UTI (urinary tract infection) (Acute) Influenza A (Acute) Hypoxia (Acute) Unresponsive episode Atrial flutter with controlled response (Acute) Rash Hyperlipidemia Hypertension Alzheimer's dementia Dementia (Acute) Medical History Alzheimer's dementia Hyperlipidemia Hypertension Surgical History Cataract History of pneumonectomy Family History Other Heart disease Social History Smoking Status: Former smoker Tobacco Type: Cigarettes Second Hand Exposure: No; Do You Dip or Chew Tobacco: No; Hx Alcohol Use: No Hx Substance Use: No Preferred Language: Persian Communication Ability: Impaired [place] 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 Beliefs That Will Affect Care: None Current Living Situation: Personal Care Facility How many Children do You have: 0 Feels Safe at Home: Yes Assistive Devices: None Allergies Allergies Allergy/AdvReac Type Severity Reaction Status Date / Time indomethacin AdvReac Unknown Verified 11/29/21 10:15 Home Meds Home Medications Medication Instructions Recorded Confirmed Certa-Delores 1 tab PO DAILY 11/29/21 11/29/21 cranberry 500 mg capsule 500 mg PO DAILY 11/29/21 11/29/21 donepezil 10 mg tablet 10 mg PO HS 11/29/21 11/29/21 memantine 5 mg tablet 5 mg PO BID 11/29/21 11/29/21 simvastatin 10 mg tablet 10 mg PO HS 11/29/21 11/29/21 vit C 250 mg-vit E 90 mg-zinc 40 1 cap PO BID 11/29/21 11/29/21 mg-copper 1 [id number] capsule (PreserVision AREDS-2) Previous Rx's Medication Instructions Recorded apixaban 5 mg tablet (Eliquis) 5 mg PO BID #60 tabs 12/03/21 buspirone 5 mg tablet 10 mg (2 x 5 mg) PO BID #60 tabs 12/03/21 hydrocortisone 1 % topical ointment 1 applic EXT BID #32 grams 12/03/21 metoprolol tartrate 25 mg tablet 25 mg PO UD #60 tabs 12/03/21 quetiapine 50 mg tablet 25 mg (1/2 x 50 mg) PO BID #30 tabs 12/03/21 Results & Data (ED) Vital Signs Vital Signs - 24 hr 06/03/24 23:47 06/03/24 23:51 06/04/24 00:00 Temperature 37.3 C Temperature Source Oral Pulse Rate 116 H Pulse Rate [Apical] Pulse Rate [Right Finger] 96 H Respiratory Rate 18 24 Respiratory Effort / Characteristics Non-Labored Spontaneous Labored Respiratory Pattern Tachypnea Blood Pressure 142/98 H Blood Pressure [Right Arm] Blood Pressure Mean 112 Blood Pressure Mean [Right Arm] Blood Pressure Position [Right Arm] Pulse Oximetry 99 97 79 L Oxygen Delivery Method Oxymask Oxymask Room Air Oxymask Oxygen Flow Rate 6 4.5 0 Sepsis Recent Fever Within 48 Hours No Sepsis New/Unexplained Change in Mental Status No Sepsis Action Taken by Nursing Physician Notified Oxygen Flow Rate - Titration 10 Pulse Oximetry Post Tiitration 97 06/04/24 00:02 06/04/24 00:12 06/04/24 00:29 Temperature Temperature Source Pulse Rate 122 H Pulse Rate [Apical] Pulse Rate [Right Finger] Respiratory Rate 26 H Respiratory Effort / Characteristics Labored Respiratory Pattern Blood Pressure Blood Pressure [Right Arm] 129/82 Blood Pressure Mean Blood Pressure Mean [Right Arm] 97 Blood Pressure Position [Right Arm] Pulse Oximetry 96 96 Oxygen Delivery Method Nasal Cannula Oxymask Oxymask Oxygen Flow Rate 4.5 4 Sepsis Recent Fever Within 48 Hours Sepsis New/Unexplained Change in Mental Status Sepsis Action Taken by Nursing Oxygen Flow Rate - Titration Pulse Oximetry Post Tiitration 06/04/24 00:34 06/04/24 01:00 06/04/24 01:45 Temperature Temperature Source Pulse Rate Pulse Rate [Apical] 124 H 112 H 110 H Pulse Rate [Right Finger] Respiratory Rate 22 24 22 Respiratory Effort / Characteristics Respiratory Pattern Blood Pressure Blood Pressure [Right Arm] 139/83 116/83 123/80 Blood Pressure Mean Blood Pressure Mean [Right Arm] 101 94 94 Blood Pressure Position [Right Arm] Semi-fowlers Semi-fowlers Semi-fowlers Pulse Oximetry 98 95 98 Oxygen Delivery Method Oxymask Oxymask Nasal Cannula Oxygen Flow Rate 4 4 4 Sepsis Recent Fever Within 48 Hours Sepsis New/Unexplained Change in Mental Status Sepsis Action Taken by Nursing Oxygen Flow Rate - Titration Pulse Oximetry Post Tiitration 06/04/24 02:26 Temperature 37.3 C Temperature Source Oral Pulse Rate Pulse Rate [Apical] 115 H Pulse Rate [Right Finger] Respiratory Rate 28 H Respiratory Effort / Characteristics Respiratory Pattern Blood Pressure Blood Pressure [Right Arm] 114/72 Blood Pressure Mean Blood Pressure Mean [Right Arm] 86 Blood Pressure Position [Right Arm] Semi-fowlers Pulse Oximetry 94 Oxygen Delivery Method Nasal Cannula Oxygen Flow Rate 3 Sepsis Recent Fever Within 48 Hours Sepsis New/Unexplained Change in Mental Status Sepsis Action Taken by Nursing Oxygen Flow Rate - Titration Pulse Oximetry Post Tiitration Laboratory Data 06/03/24 23:47 06/03/24 23:47 Lab Results 06/03/24 06/03/24 06/03/24 Range/Units 23:42 23:47 23:50 WBC 13.52 H (4.8-10.8) K/ul RBC 4.05 L (4.20-5.40) M/uL Hgb 11.8 L (12.0-16.0) g/dl POC Hgb 12.2 (12.0-16.0) g/dl Hct 36.5 L (37.0-47.0) % POC Hct 36 L (37-47) % MCV 90.1 (80.0-100.0) fL MCH 29.1 (25.0-34.0) pg MCHC 32.3 (32.0-36.0) g/dL RDW Std Deviation 43.5 (36.4-46.3) fL RDW Coeff of Guera 13.1 (11.5-14.5) % Plt Count 186 (130-400) K/uL MPV 11.5 (9.4-12.4) fL Immature Gran % (Auto) 1.2 % Neut % (Auto) 41.7 % Lymph % (Auto) 10.5 % Rush % (Auto) 46.1 % Eos % (Auto) 0.4 % Baso % (Auto) 0.1 % Neut # (Auto) 5.64 (1.40-6.50) K/uL Lymph # (Auto) 1.42 (1.20-3.40) K/uL Rush # (Auto) 6.23 H (0.11-0.59) K/uL Eos # (Auto) 0.05 (0.00-0.50) K/uL Baso # (Auto) 0.02 (0.00-0.20) K/uL Immature Gran # (Auto) 0.16 (0.01-0.20) K/uL Polychromasia 1+ PT 13.2 H (9.0-12.0) Seconds INR 1.2 H (0.9-1.1) APTT 30 (21-31) Seconds PTT Ratio 1.1 POC pH (7.35-7.45) POC pCO2 (35-46) mmHg POC pO2 (80-95) mmHg POC HCO3 (19-24) aleksandar/L POC Base Excess (-9-1.8) aleksandar/L POC ABG O2 Sat (90-95) % POC Sodium 140 (135-144) mmol/L Sodium 140 (136-145) mmol/L POC Potassium 3.9 (3.3-5.0) mmol/L Potassium 3.9 (3.5-5.1) mmol/L POC Chloride 107 (101-112) mmol/L Chloride 105 (98-107) mmol/L Carbon Dioxide 22 (21-32) mmol/L POC Total CO2 23 L (24-31) mmol/L Anion Gap 13 H (3-11) POC Anion Gap 15.0 L (16-25) mmol/L POC BUN 27 H (7-18) mg/dl BUN 31 H (6-23) mg/dl Creatinine 1.08 (0.6-1.2) mg/dl POC Creatinine 1.1 (0.6-1.3) mg/dl Est Cr Clr Drug Dosing 34.8 ml/min eGFR 49.71 BUN/Creatinine Ratio 28.7 H (10-20) Glucose 103 H (70-99(Fasting)) mg/dl POC Glucose (other) 105 H (70-99) mg/dl Lactate 1.2 (0.4-2.0) mmol/L Calcium 9.2 (8.6-10.3) mg/dl POC Ioniz Calcium Tiff 1.09 L (1.12-1.32) mmol/l Magnesium 2.1 (1.7-2.4) mg/dl Total Bilirubin 0.6 (0.2-1.0) mg/dl Direct Bilirubin 0.1 (0-0.2) mg/dl AST 22 (13-39) U/L ALT 11 (7-52) U/L Alkaline Phosphatase 114 H (34-104) U/L Troponin I High Sens 23.9 H (0-14) pg/ml B-Natriuretic Peptide (0-100) pg/ml Total Protein 7.4 (6.0-8.3) gm/dl Albumin 3.8 (3.4-5.0) gm/dl Procalcitonin (0-0.5) ng/ml Urine Color Urine Appearance (Clear) Urine pH (4.5-7.5) Ur Specific [place] (1.000-1.030) Urine Protein (Negative) Urine Glucose (UA) (Negative) Urine Ketones (Negative) Urine Blood (Negative) Urine Nitrite (Negative) Urine Bilirubin (Negative) Urine Urobilinogen (Negative) Ur Leukocyte Esterase (Negative) Urine WBC (Auto) (0-5) /hpf Urine RBC (Auto) (0-2) /hpf U Hyaline Cast (Auto) (0-2) /lpf U Epithel Cells (Auto) (0-2) /hpf Urine Bacteria (Auto) (None Seen) Adenovirus (PCR) (NotDetected) B. pertussis DNA (PCR) (NotDetected) B.parapertussis DNA PCR (NotDetected) C. pneumoniae DNA (PCR) (NotDetected) Coronavirus OC43 (PCR) (NotDetected) Coronavirus HKU1 (PCR) (NotDetected) Coronavirus 229E (PCR) (NotDetected) SARS-CoV-2 (PCR) (NotDetected) Coronavirus NL63 (PCR) (NotDetected) Human Metapneumovir PCR (NotDetected) Influenza A (H3) PCR (NotDetected) Influenza Type B (PCR) (NotDetected) M. pneumoniae (PCR) (NotDetected) Parainfluenza 1 (PCR) (NotDetected) Parainfluenza 2 (PCR) (NotDetected) Parainfluenza 3 (PCR) (NotDetected) Parainfluenza 4 (PCR) (NotDetected) RSV (PCR) (NotDetected) Entero/Rhino (PCR) (NotDetected) 06/04/24 06/04/24 06/04/24 Range/Units 00:05 00:08 00:32 WBC (4.8-10.8) K/ul RBC (4.20-5.40) M/uL Hgb (12.0-16.0) g/dl POC Hgb 11.6 L (12.0-16.0) g/dl Hct (37.0-47.0) % POC Hct 34 L (37-47) % MCV (80.0-100.0) fL MCH (25.0-34.0) pg MCHC (32.0-36.0) g/dL RDW Std Deviation (36.4-46.3) fL RDW Coeff of Guera (11.5-14.5) % Plt Count (130-400) K/uL MPV (9.4-12.4) fL Immature Gran % (Auto) % Neut % (Auto) % Lymph % (Auto) % Rush % (Auto) % Eos % (Auto) % Baso % (Auto) % Neut # (Auto) (1.40-6.50) K/uL Lymph # (Auto) (1.20-3.40) K/uL Rush # (Auto) (0.11-0.59) K/uL Eos # (Auto) (0.00-0.50) K/uL Baso # (Auto) (0.00-0.20) K/uL Immature Gran # (Auto) (0.01-0.20) K/uL Polychromasia PT (9.0-12.0) Seconds INR (0.9-1.1) APTT (21-31) Seconds PTT Ratio POC pH 7.36 (7.35-7.45) POC pCO2 38 (35-46) mmHg POC pO2 101 H (80-95) mmHg POC HCO3 22 (19-24) aleksandar/L POC Base Excess -4.0 (-9-1.8) aleksandra/L POC ABG O2 Sat 98.0 H (90-95) % POC Sodium 140 (135-144) mmol/L Sodium (136-145) mmol/L POC Potassium 3.9 (3.3-5.0) mmol/L Potassium (3.5-5.1) mmol/L POC Chloride (101-112) mmol/L Chloride (98-107) mmol/L Carbon Dioxide (21-32) mmol/L POC Total CO2 23 L (24-31) mmol/L Anion Gap (3-11) POC Anion Gap (16-25) mmol/L POC BUN (7-18) mg/dl BUN (6-23) mg/dl Creatinine (0.6-1.2) mg/dl POC Creatinine (0.6-1.3) mg/dl Est Cr Clr Drug Dosing ml/min eGFR BUN/Creatinine Ratio (10-20) Glucose (70-99(Fasting)) mg/dl POC Glucose (other) (70-99) mg/dl Lactate (0.4-2.0) mmol/L Calcium (8.6-10.3) mg/dl POC Ioniz Calcium Tiff (1.12-1.32) mmol/l Magnesium (1.7-2.4) mg/dl Total Bilirubin (0.2-1.0) mg/dl Direct Bilirubin (0-0.2) mg/dl AST (13-39) U/L ALT (7-52) U/L Alkaline Phosphatase (34-104) U/L Troponin I High Sens (0-14) pg/ml B-Natriuretic Peptide (0-100) pg/ml Total Protein (6.0-8.3) gm/dl Albumin (3.4-5.0) gm/dl Procalcitonin (0-0.5) ng/ml Urine Color Yellow Urine Appearance Cloudy A (Clear) Urine pH 5.0 (4.5-7.5) Ur Specific [place] 1.020 (1.000-1.030) Urine Protein 1+ H (Negative) Urine Glucose (UA) Negative (Negative) Urine Ketones 2+ H (Negative) Urine Blood 1+ H (Negative) Urine Nitrite Positive A (Negative) Urine Bilirubin Negative (Negative) Urine Urobilinogen Negative (Negative) Ur Leukocyte Esterase 3+ H (Negative) Urine WBC (Auto) >50 H (0-5) /hpf Urine RBC (Auto) 6-10 H (0-2) /hpf U Hyaline Cast (Auto) 3-5 H (0-2) /lpf U Epithel Cells (Auto) 3-5 H (0-2) /hpf Urine Bacteria (Auto) 4+ H (None Seen) Adenovirus (PCR) Not Detected (NotDetected) B. pertussis DNA (PCR) Not Detected (NotDetected) B.parapertussis DNA PCR Not Detected (NotDetected) C. pneumoniae DNA (PCR) Not Detected (NotDetected) Coronavirus OC43 (PCR) Not Detected (NotDetected) Coronavirus HKU1 (PCR) Not Detected (NotDetected) Coronavirus 229E (PCR) Not Detected (NotDetected) SARS-CoV-2 (PCR) Not Detected (NotDetected) Coronavirus NL63 (PCR) Not Detected (NotDetected) Human Metapneumovir PCR Not Detected (NotDetected) Influenza A (H3) PCR DETECTED A (NotDetected) Influenza Type B (PCR) Not Detected (NotDetected) M. pneumoniae (PCR) Not Detected (NotDetected) Parainfluenza 1 (PCR) Not Detected (NotDetected) Parainfluenza 2 (PCR) Not Detected (NotDetected) Parainfluenza 3 (PCR) Not Detected (NotDetected) Parainfluenza 4 (PCR) Not Detected (NotDetected) RSV (PCR) Not Detected (NotDetected) Entero/Rhino (PCR) Not Detected (NotDetected) 06/04/24 06/04/24 Range/Units 00:33 01:50 WBC (4.8-10.8) K/ul RBC (4.20-5.40) M/uL Hgb (12.0-16.0) g/dl POC Hgb (12.0-16.0) g/dl Hct (37.0-47.0) % POC Hct (37-47) % MCV (80.0-100.0) fL MCH (25.0-34.0) pg MCHC (32.0-36.0) g/dL RDW Std Deviation (36.4-46.3) fL RDW Coeff of Guera (11.5-14.5) % Plt Count (130-400) K/uL MPV (9.4-12.4) fL Immature Gran % (Auto) % Neut % (Auto) % Lymph % (Auto) % Rush % (Auto) % Eos % (Auto) % Baso % (Auto) % Neut # (Auto) (1.40-6.50) K/uL Lymph # (Auto) (1.20-3.40) K/uL Rush # (Auto) (0.11-0.59) K/uL Eos # (Auto) (0.00-0.50) K/uL Baso # (Auto) (0.00-0.20) K/uL Immature Gran # (Auto) (0.01-0.20) K/uL Polychromasia PT (9.0-12.0) Seconds INR (0.9-1.1) APTT (21-31) Seconds PTT Ratio POC pH (7.35-7.45) POC pCO2 (35-46) mmHg POC pO2 (80-95) mmHg POC HCO3 (19-24) aleksandar/L POC Base Excess (-9-1.8) aleksandar/L POC ABG O2 Sat (90-95) % POC Sodium (135-144) mmol/L Sodium (136-145) mmol/L POC Potassium (3.3-5.0) mmol/L Potassium (3.5-5.1) mmol/L POC Chloride (101-112) mmol/L Chloride (98-107) mmol/L Carbon Dioxide (21-32) mmol/L POC Total CO2 (24-31) mmol/L Anion Gap (3-11) POC Anion Gap (16-25) mmol/L POC BUN (7-18) mg/dl BUN (6-23) mg/dl Creatinine (0.6-1.2) mg/dl POC Creatinine (0.6-1.3) mg/dl Est Cr Clr Drug Dosing ml/min eGFR BUN/Creatinine Ratio (10-20) Glucose (70-99(Fasting)) mg/dl POC Glucose (other) (70-99) mg/dl Lactate (0.4-2.0) mmol/L Calcium (8.6-10.3) mg/dl POC Ioniz Calcium Tiff (1.12-1.32) mmol/l Magnesium (1.7-2.4) mg/dl Total Bilirubin (0.2-1.0) mg/dl Direct Bilirubin (0-0.2) mg/dl AST (13-39) U/L ALT (7-52) U/L Alkaline Phosphatase (34-104) U/L Troponin I High Sens 21.9 H (0-14) pg/ml B-Natriuretic Peptide 249 H (0-100) pg/ml Total Protein (6.0-8.3) gm/dl Albumin (3.4-5.0) gm/dl Procalcitonin 0.66 H (0-0.5) ng/ml Urine Color Urine Appearance (Clear) Urine pH (4.5-7.5) Ur Specific [place] (1.000-1.030) Urine Protein (Negative) Urine Glucose (UA) (Negative) Urine Ketones (Negative) Urine Blood (Negative) Urine Nitrite (Negative) Urine Bilirubin (Negative) Urine Urobilinogen (Negative) Ur Leukocyte Esterase (Negative) Urine WBC (Auto) (0-5) /hpf Urine RBC (Auto) (0-2) /hpf U Hyaline Cast (Auto) (0-2) /lpf U Epithel Cells (Auto) (0-2) /hpf Urine Bacteria (Auto) (None Seen) Adenovirus (PCR) (NotDetected) B. pertussis DNA (PCR) (NotDetected) B.parapertussis DNA PCR (NotDetected) C. pneumoniae DNA (PCR) (NotDetected) Coronavirus OC43 (PCR) (NotDetected) Coronavirus HKU1 (PCR) (NotDetected) Coronavirus 229E (PCR) (NotDetected) SARS-CoV-2 (PCR) (NotDetected) Coronavirus NL63 (PCR) (NotDetected) Human Metapneumovir PCR (NotDetected) Influenza A (H3) PCR (NotDetected) Influenza Type B (PCR) (NotDetected) M. pneumoniae (PCR) (NotDetected) Parainfluenza 1 (PCR) (NotDetected) Parainfluenza 2 (PCR) (NotDetected) Parainfluenza 3 (PCR) (NotDetected) Parainfluenza 4 (PCR) (NotDetected) RSV (PCR) (NotDetected) Entero/Rhino (PCR) (NotDetected) Administered Medications Sodium Chloride (Nss) 1,000 mls @ 125 mls/hr IV .Q8H JUAN C Stop: 06/05/24 01:14 Last Admin: 06/04/24 02:18 Dose: 125 mls/hr Documented By: EMB Vancomycin HCl 1,250 mg/ (Sodium Chloride) 525 mls @ 200 mls/hr IV NOW ONE Stop: 06/04/24 03:44 Last Admin: 06/04/24 02:16 Dose: 200 mls/hr Documented By: TABATHA Discontinued Medications Albuterol (Albut/Ipratrop 3mg/0.5mg Neb 3 Ml Vial) 3 ml NEB NOW STA; Protocol Stop: 06/03/24 23:31 Last Admin: 06/03/24 23:44 Dose: 3 ml Documented By: SELENE Sodium Chloride (Nss) 500 mls @ 999 mls/hr IV .Q31M ONE Stop: 06/04/24 01:37 Last Infusion: 06/04/24 02:16 Dose: Infused Documented By: Admin: 06/04/24 01:23 Dose: 999 mls/hr Documented By: TABATHA Piperacillin Sod/Tazobactam Sod (Zosyn) 4.5 gm in 100 mls @ 200 mls/hr IV NOW ONE; Protocol Stop: 06/04/24 01:36 Last Infusion: 06/04/24 02:16 Dose: Infused Documented By: Admin: 06/04/24 01:22 Dose: 200 mls/hr Documented By: TABATHA Oseltamivir Phosphate (Oseltamivir Phosphate 75 Mg Cap) 75 mg PO NOW STA; Protocol Stop: 06/04/24 01:18 Last Admin: 06/04/24 02:13 Dose: 75 mg Documented By: TABATHA Imaging Data Radiologist's Impression: Chest X-Ray 06/03/24 23:30 EXAM: XR chest 1V portable CLINICAL HISTORY: Sepsis. TECHNIQUE: An X-ray image of the chest is obtained in AP projection. COMPARISON: 11/29/2021 FINDINGS: Pulmonary Parenchyma: Prominent central bronchovascular markings with peribronchial thickening. Suspected left lower zone opacity. Obliteration of the left costophrenic angle. No evidence of right pleural effusion or pleural thickening. Mediastinum: No mediastinal widening or masses. Bony Thorax: Degenerative changes of the visualized skeleton. Soft Tissues: Postsurgical clips are noted in the mid and lower central chest. IMPRESSION: 1. Prominent central bronchovascular markings with peribronchial thickening. Clinical correlation is advised to assess for pulmonary congestion. (New finding) 2. Left lower zone faint opacity. (New finding). Could be related to pulmonary congestion, however, clinical correlation is advised to assess for an infectious process. 3. Mild left-sided pleural effusion/thickening. (Stable) Electronically signed by Ashlyn De La Cruz 06-04-2024 01:48 AM Discharge Plan Visit Data Chief Complaint: Weakness Stated Complaint: HYPOXIA, WEAKNESS ED Provider: Michael Sanchez Discharge Problem: Hypoxia, Atrial flutter with controlled response, Influenza A, Acute UTI (urinary tract infection), Pneumonia Forms Stand Alone Forms: [facility] Prescriptions Prescriptions: No Action donepezil 10 mg Tablet 10 mg PO HS simvastatin 10 mg Tablet 10 mg PO HS cranberry 500 mg Capsule 500 mg PO DAILY Rx Instructions: administer with meals memantine 5 mg Tablet 5 mg PO BID PreserVision AREDS-2 250-90-40-1 mg Capsule 1 cap PO BID Certa-Delores 1 tab PO DAILY Eliquis 5 mg Tablet 5 mg PO BID Qty: 60 0RF buspirone 5 mg Tablet 10 mg PO BID Qty: 60 0RF hydrocortisone 1 % Ointment 1 applic EXT BID Qty: 32 0RF metoprolol tartrate 25 mg Tablet 25 mg PO UD Qty: 60 0RF Rx Instructions: 50 mg am and 25 mg pm quetiapine 50 mg Tablet 25 mg PO BID Qty: 30 0RF Referrals Referrals: Moise Lang DO [Primary Care Provider] -
--- NOTE | 2024-06-04 03:37 | History & Physical Report ---
Date of Service June 04, 2024 Assessment & Plan (1) AMS (altered mental status): Plan: 89-year-old female residing at [facility] with past medical significant for Alzheimer's dementia, mood disorder, hypertension, hyperlipidemia, history of a flutter was brought in because of confusion, weakness and hypoxia and found to have influenza, and UTI and possible pneumonia. Currently patient is oriented name only. Says she is doing okay. Not answering other questions. Somewhat noncooperative with exam. Was saturating 79 % on room air. On 3 L saturating okay. Seems she is having cough. As per [facility] she was found to be more confused than usual. And oxygen saturation were low. No recent nausea vomiting. No diarrhea or constipation. And was very weak today she generally ambulates without support but was having difficulty ambulating today as per [facility]. Generally she can eat regular diet. Could not get any history from the patient currently. Altered mental status Underlying Alzheimer's dementia More confused than usual Most likely from UTI and flu and possible pneumonia Will monitor Influenza Droplet precautions Tamiflu Supportive care Acute UTI ER empirically started on Zosyn and Vanco Which will be continued Will follow cultures IV fluids Possible pneumonia Zosyn and Vanco and p.o. Doxy Nebs as needed Alzheimer dementia On donezepil and memantine Monitor for delirium A flutter Continue home metoprolol IV Lopressor as needed she was first diagnosed with a flutter when she was admitted in 12/08 And she was placed on Eliquis at that time Currently seems not to be on Eliquis Verify with family in a.m. Consider cardiology consult Mild elevation troponin Possible demand ischemia Will follow serial enzymes and echo Hyperlipidemia On statin Hypertension On metoprolol Mood disorder On buspirone and Ativan as needed DVT prophylaxis Heparin subcu Disposition Med/telemetry as CODE STATUS full code for now as [facility] could not find advanced directive History of Present Illness Chief Complaint: Confusion, influenza and UTI Primary Care Provider: Moise Lnag DO 89-year-old female residing at [facility] with past medical significant for Alzheimer's dementia, mood disorder, hypertension, hyperlipidemia, history of a flutter was brought in because of confusion, weakness and hypoxia and found to have influenza, and UTI and possible pneumonia. Currently patient is oriented name only. Says she is doing okay. Not answering other questions. Somewhat noncooperative with exam. Was saturating 79 % on room air. On 3 L saturating okay. Seems she is having cough. As per [facility] she was found to be more confused than usual. And oxygen saturation were low. No recent nausea vomiting. No diarrhea or constipation. And was very weak today she generally ambulates without support but was having difficulty ambulating today as per [facility]. Generally she can eat regular diet. Could not get any history from the patient currently. Past medical history. As mentioned above Past surgical history. Cataracts. History of pneumonectomy. Social history. No smoking. No alcohol use. Currently living at [facility] Family history. Significant for heart disease Allergies Allergy/AdvReac Type Severity Reaction Status Date / Time indomethacin AdvReac Unknown Verified 11/29/21 10:15 Home Medications Medication Instructions Recorded Confirmed Type cranberry 500 mg capsule 500 mg PO DAILY 11/29/21 06/04/24 History donepezil 10 mg tablet 10 mg PO HS 11/29/21 06/04/24 History memantine 5 mg tablet 5 mg PO BID 11/29/21 06/04/24 History multivitamin-iron (hematinic) 1 tab PO DAILY ##0 11/29/21 06/04/24 History simvastatin 10 mg tablet 10 mg PO HS 11/29/21 06/04/24 History vit C 250 mg-vit E 90 mg-zinc 40 1 cap PO BID 11/29/21 06/04/24 History mg-copper 1 po-nrorog-dlkfca capsule (PreserVision AREDS-2) buspirone 5 mg tablet 10 mg (2 x 5 mg) PO BID #60 tabs 12/03/21 06/04/24 Rx acetaminophen 500 mg tablet 1,000 mg PO Q8H PRN Pain 06/04/24 06/04/24 History clopidogrel 75 mg tablet 75 mg PO DAILY 06/04/24 06/04/24 History lorazepam 0.5 mg tablet 0.5 mg PO BID PRN Anxiety 06/04/24 06/04/24 History metoprolol tartrate 25 mg tablet 12.5 mg PO DAILY 06/04/24 06/04/24 History trazodone 50 mg tablet 25 mg PO HS PRN Sleep 06/04/24 06/04/24 History Past Med/Surg History Problem List (Updated 06/04/24 @ 05:06 by Background Daemon) AMS (altered mental status) Pneumonia (Acute) Acute UTI (urinary tract infection) (Acute) Influenza A (Acute) Hypoxia (Acute) Unresponsive episode Atrial flutter with controlled response (Acute) Rash Hyperlipidemia Hypertension Alzheimer's dementia Dementia (Acute) Medical History Alzheimer's dementia Hyperlipidemia Hypertension Surgical History Cataract History of pneumonectomy Family History Other Heart disease Social History Smoking Status: Former smoker Tobacco Type: Cigarettes Second Hand Exposure: No; Do You Dip or Chew Tobacco: No; Hx Alcohol Use: No Hx Substance Use: No Preferred Language: Dutch Communication Ability: Impaired Chinese Medicine Practitioner Required: No Beliefs That Will Affect Care: None Current Living Situation: Personal Care Facility How many Children do You have: 0 Feels Safe at Home: Yes Assistive Devices: None Review of Systems Review of Systems: Unobtainable due to cognitive status Physical Exam Physical Exam: General- Confused Head- atraumatic Eyes- PERRL ENT- oropharynx dry Neck- supple, no JVD. Lungs- clear to auscultation b/l rhonchi heard Heart- irregular rhythm; no murmur, no gallop. Abdomen- normal bowel sounds, soft, nontender, no distension. Extremities- no pretibial edema, no erythema seen Neuro- alert, oriented x 1. confused. PERRL, no facial palsy; no dysarthria; moves extremities. Does not obey commands Results & Data Results & Data Vital Signs (Past 12 Hours) Vital Signs Temp Pulse Pulse Pulse Resp BP BP 06/04/24 02:45 108 H 20 99/65 L 06/04/24 02:26 37.3 C 115 H 28 H 114/72 06/04/24 01:45 110 H 22 123/80 06/04/24 01:00 112 H 24 116/83 06/04/24 00:34 124 H 22 139/83 06/04/24 00:29 122 H 02/16/25 00:12 26 H 129/82 02/16/25 00:02 06/04/24 00:00 06/03/24 23:51 37.3 C 116 H 24 142/98 H 06/03/24 23:47 96 H 18 Pulse Ox O2 Del Method O2 Flow Rate 06/04/24 02:45 96 Nasal Cannula 3 06/04/24 02:26 94 Nasal Cannula 3 06/04/24 01:45 98 Nasal Cannula 4 06/04/24 01:00 95 Oxymask 4 06/04/24 00:34 98 Oxymask 4 06/04/24 00:29 06/04/24 00:12 96 Oxymask 4 06/04/24 00:02 96 Nasal Cannula, Oxymask 4.5 06/04/24 00:00 79 L Room Air, Oxymask 0 06/03/24 23:51 97 Oxymask 4.5 06/03/24 23:47 99 Oxymask 6 Diagnostic Findings Laboratory Results WBC 13.52 K/ul (4.8-10.8) H 06/03/24 23:47 RBC 4.05 M/uL (4.20-5.40) L 06/03/24 23:47 Hgb 11.8 g/dl (12.0-16.0) L 06/03/24 23:47 POC Hgb 11.6 g/dl (12.0-16.0) L 06/04/24 00:05 Hct 36.5 % (37.0-47.0) L 06/03/24 23:47 POC Hct 34 % (37-47) L 06/04/24 00:05 MCV 90.1 fL (80.0-100.0) 06/03/24 23:47 MCH 29.1 pg (25.0-34.0) 06/03/24 23:47 MCHC 32.3 g/dL (32.0-36.0) 06/03/24 23:47 RDW Std Deviation 43.5 fL (36.4-46.3) 06/03/24 23:47 RDW Coeff of Guera 13.1 % (11.5-14.5) 06/03/24 23:47 Plt Count 186 K/uL (130-400) 06/03/24 23:47 MPV 11.5 fL (9.4-12.4) 06/03/24 23:47 Immature Gran % (Auto) 1.2 % 06/03/24 23:47 Neut % (Auto) 41.7 % 06/03/24 23:47 Lymph % (Auto) 10.5 % 06/03/24 23:47 [place] % (Auto) 46.1 % 06/03/24 23:47 Eos % (Auto) 0.4 % 06/03/24 23:47 Baso % (Auto) 0.1 % 06/03/24 23:47 Neut # (Auto) 5.64 K/uL (1.40-6.50) 06/03/24 23:47 Lymph # (Auto) 1.42 K/uL (1.20-3.40) 06/03/24 23:47 [place] # (Auto) 6.23 K/uL (0.11-0.59) H 06/03/24 23:47 Eos # (Auto) 0.05 K/uL (0.00-0.50) 06/03/24 23:47 Baso # (Auto) 0.02 K/uL (0.00-0.20) 06/03/24 23:47 Immature Gran # (Auto) 0.16 K/uL (0.01-0.20) 06/03/24 23:47 Polychromasia 1+ 06/03/24 23:47 PT 13.2 Seconds (9.0-12.0) H 06/03/24 23:47 INR 1.2 (0.9-1.1) H 06/03/24 23:47 APTT 30 Seconds (21-31) 06/03/24 23:47 PTT Ratio 1.1 06/03/24 23:47 POC pH 7.36 (7.35-7.45) 06/04/24 00:05 POC pCO2 38 mmHg (35-46) 06/04/24 00:05 POC pO2 101 mmHg (80-95) H 06/04/24 00:05 POC HCO3 22 aleksandar/L (19-24) 06/04/24 00:05 POC Total CO2 23 mmol/L (24-31) L 06/04/24 00:05 POC Base Excess -4.0 aleksandar/L (-9-1.8) 06/04/24 00:05 POC ABG O2 Sat 98.0 % (90-95) H 06/04/24 00:05 POC Sodium 140 mmol/L (135-144) 06/04/24 00:05 Sodium 140 mmol/L (136-145) 06/03/24 23:47 POC Potassium 3.9 mmol/L (3.3-5.0) 06/04/24 00:05 Potassium 3.9 mmol/L (3.5-5.1) 06/03/24 23:47 POC Chloride 107 mmol/L (101-112) 06/03/24 23:50 Chloride 105 mmol/L (98-107) 06/03/24 23:47 Carbon Dioxide 22 mmol/L (21-32) 06/03/24 23:47 POC Total CO2 23 mmol/L (24-31) L 06/03/24 23:50 Anion Gap 13 (3-11) H 06/03/24 23:47 POC Anion Gap 15.0 mmol/L (16-25) L 06/03/24 23:50 POC BUN 27 mg/dl (7-18) H 06/03/24 23:50 BUN 31 mg/dl (6-23) H 06/03/24 23:47 Creatinine 1.08 mg/dl (0.6-1.2) 06/03/24 23:47 POC Creatinine 1.1 mg/dl (0.6-1.3) 06/03/24 23:50 Est Cr Clr Drug Dosing 34.8 ml/min 06/03/24 23:47 eGFR 49.71 06/03/24 23:47 BUN/Creatinine Ratio 28.7 (10-20) H 06/03/24 23:47 Glucose 103 mg/dl (70-99(Fasting)) H 06/03/24 23:47 POC Glucose (other) 105 mg/dl (70-99) H 06/03/24 23:50 Lactate 1.2 mmol/L (0.4-2.0) 06/03/24 23:42 Calcium 9.2 mg/dl (8.6-10.3) 06/03/24 23:47 POC Ioniz Calcium Tiff 1.09 mmol/l (1.12-1.32) L 06/03/24 23:50 Magnesium 2.1 mg/dl (1.7-2.4) 06/03/24 23:47 Total Bilirubin 0.6 mg/dl (0.2-1.0) 06/03/24 23:47 Direct Bilirubin 0.1 mg/dl (0-0.2) 06/03/24 23:47 AST 22 U/L (13-39) 06/03/24 23:47 ALT 11 U/L (7-52) 06/03/24 23:47 Alkaline Phosphatase 114 U/L (34-104) H 06/03/24 23:47 Troponin I High Sens 21.9 pg/ml (0-14) H 06/04/24 01:50 B-Natriuretic Peptide 249 pg/ml (0-100) H 06/04/24 00:33 Total Protein 7.4 gm/dl (6.0-8.3) 06/03/24 23:47 Albumin 3.8 gm/dl (3.4-5.0) 06/03/24 23:47 Procalcitonin 0.66 ng/ml (0-0.5) H 06/04/24 00:33 Urine Color Yellow 06/04/24 00:32 Urine Appearance Cloudy (Clear) A 06/04/24 00:32 Urine pH 5.0 (4.5-7.5) 06/04/24 00:32 Ur Specific Fenton 1.020 (1.000-1.030) 06/04/24 00:32 Urine Protein 1+ (Negative) H 06/04/24 00:32 Urine Glucose (UA) Negative (Negative) 06/04/24 00:32 Urine Ketones 2+ (Negative) H 06/04/24 00:32 Urine Blood 1+ (Negative) H 06/04/24 00:32 Urine Nitrite Positive (Negative) A 06/04/24 00:32 Urine Bilirubin Negative (Negative) 06/04/24 00:32 Urine Urobilinogen Negative (Negative) 06/04/24 00:32 Ur Leukocyte Esterase 3+ (Negative) H 06/04/24 00:32 Urine WBC (Auto) >50 /hpf (0-5) H 06/04/24 00:32 Urine RBC (Auto) 6-10 /hpf (0-2) H 06/04/24 00:32 U Hyaline Cast (Auto) 3-5 /lpf (0-2) H 06/04/24 00:32 U Epithel Cells (Auto) 3-5 /hpf (0-2) H 06/04/24 00:32 Urine Bacteria (Auto) 4+ (None Seen) H 06/04/24 00:32 Adenovirus (PCR) Not Detected (NotDetected) 06/04/24 00:08 B. pertussis DNA (PCR) Not Detected (NotDetected) 06/04/24 00:08 B.parapertussis DNA PCR Not Detected (NotDetected) 06/04/24 00:08 C. pneumoniae DNA (PCR) Not Detected (NotDetected) 06/04/24 00:08 Coronavirus OC43 (PCR) Not Detected (NotDetected) 06/04/24 00:08 Coronavirus HKU1 (PCR) Not Detected (NotDetected) 06/04/24 00:08 Coronavirus 229E (PCR) Not Detected (NotDetected) 06/04/24 00:08 SARS-CoV-2 (PCR) Not Detected (NotDetected) 06/04/24 00:08 Coronavirus NL63 (PCR) Not Detected (NotDetected) 06/04/24 00:08 Human Metapneumovir PCR Not Detected (NotDetected) 06/04/24 00:08 Influenza A (H3) PCR DETECTED (NotDetected) A 06/04/24 00:08 Influenza Type B (PCR) Not Detected (NotDetected) 06/04/24 00:08 M. pneumoniae (PCR) Not Detected (NotDetected) 06/04/24 00:08 Parainfluenza 1 (PCR) Not Detected (NotDetected) 06/04/24 00:08 Parainfluenza 2 (PCR) Not Detected (NotDetected) 06/04/24 00:08 Parainfluenza 3 (PCR) Not Detected (NotDetected) 06/04/24 00:08 Parainfluenza 4 (PCR) Not Detected (NotDetected) 06/04/24 00:08 RSV (PCR) Not Detected (NotDetected) 06/04/24 00:08 Entero/Rhino (PCR) Not Detected (NotDetected) 06/04/24 00:08 Impressions Chest X-Ray 06/03/24 23:30 EXAM: XR chest 1V portable CLINICAL HISTORY: Sepsis. TECHNIQUE: An X-ray image of the chest is obtained in AP projection. COMPARISON: 11/29/2021 FINDINGS: Pulmonary Parenchyma: Prominent central bronchovascular markings with peribronchial thickening. Suspected left lower zone opacity. Obliteration of the left costophrenic angle. No evidence of right pleural effusion or pleural thickening. Mediastinum: No mediastinal widening or masses. Bony Thorax: Degenerative changes of the visualized skeleton. Soft Tissues: Postsurgical clips are noted in the mid and lower central chest. IMPRESSION: 1. Prominent central bronchovascular markings with peribronchial thickening. Clinical correlation is advised to assess for pulmonary congestion. (New finding) 2. Left lower zone faint opacity. (New finding). Could be related to pulmonary congestion, however, clinical correlation is advised to assess for an infectious process. 3. Mild left-sided pleural effusion/thickening. (Stable) Electronically signed by Ashlyn De La Cruz 06-04-2024 01:48 AM ECG Additional Comments: ECG. A flutter with variable AV block with PVCs with rate of 116. Nonspecific internal ventricular conduction block Code Status & VTE Plan VTE Prophylaxis Plan VTE Prophylaxis will be ordered: Yes
[2024-06-04] MEDS ORDERED: NITROGLYCERIN SL 0.4 MG/TAB TAB SL PRN (05:12)
--- NOTE | 2024-06-04 07:16 | Electrocardiogram Report ---
Test Reason : Blood Pressure : */* mmHG Vent. Rate : 116 BPM Atrial Rate : 293 BPM P-R Int : * ms QRS Dur : 162 ms QT Int : 396 ms P-R-T Axes : 258 -70 -58 degrees QTcB Int : 550 ms Atrial flutter with variable A-V block Left axis deviation Abnormal ECG Confirmed by Jordin Wang ([id number]) on 06/04/2024 7:15:38 AM Referred By: Maksim Hall Confirmed By: Jordin Wang
[2024-06-04] MEDS: CEROVITE ADV FORMULA TAB PO SCH (08:20)
[2024-06-04] MEDS: MEMANTINE HCL 5 MG TAB PO SCH (08:20)
[2024-06-04] MEDS: busPIRone 5 MG TAB PO SCH (08:20)
[2024-06-04] MEDS: DOXYCYCLINE HYCLATE 100 MG CAP PO SCH (08:20)
[2024-06-04] MEDS: METOPROLOL TARTRATE 25 MG TAB PO SCH (08:21)
[2024-06-04] MEDS: CLOPIDOGREL BISULFATE 75 MG TAB PO SCH (08:21)
[2024-06-04] MEDS: PRENATAL VITAMIN 1 TAB PO SCH (08:22)
[2024-06-04] MEDS: HEPARIN SOD 5,000 UNIT/0.5 ML VIAL SQ SCH (08:26)
[2024-06-04] MEDS: PIPERACILLIN/TAZOBACTAM 4.5 GM/100 ML BAG IV SCH (08:27)
[2024-06-04] MEDS: OSELTAMIVIR PHOSPHATE SUSP 30 MG/5 ML UDP PO SCH (08:30)
[2024-06-04 08:33] LABS: Hematocrit (blood only) 35.5 % (37.0-47.0); Hemoglobin 11.4 g/dl (12.0-16.0); Mean Corpuscular Hemoglobin 29.1 pg (25.0-34.0); Mean Corpuscular Hgb Conc 32.1 g/dL (32.0-36.0); Mean Corpuscular Volume 90.6 fL (80.0-100.0); Mean Platelet Volume 11.6 fL (9.4-12.4); Platelet Count 165 K/uL (130-400); RDW Coefficient of Variation 13.3 % (11.5-14.5); RDW Standard Deviation 44.2 fL (36.4-46.3); Red Blood Count 3.92 M/uL (4.20-5.40); White Blood Count 14.69 K/ul (4.8-10.8)
[2024-06-04] MEDS ORDERED: NON-FORMULARY MEDICATION (Cranberry 500 mg Capsule) PO SCH (09:00)
[2024-06-04 09:02] LABS: Calcium 8.3 mg/dl (8.6-10.3); Creatinine Clr Calc Pharmacy 37.5 ml/min; Potassium 3.8 mmol/L (3.5-5.1)
[2024-06-04 09:06] LABS: ALC (manual) 1.47 K/uL (1.2-3.4); ANC (manual) 7.64 K/uL (1.4-6.5); Lymphocytes # (manual) 1.47 K/uL (1.2-3.4); Lymphocytes % (manual) 10 %; Monocytes # (manual) 5.44 K/uL (0.11-0.59); Monocytes % (manual) 37 %; Myelocytes # (manual) 0.15 K/uL (0-0); Myelocytes % (manual) 1 %; Neutrophils # (manual) 7.64 K/uL (1.40-6.50); Neutrophils % (manual) 52 %; Polychromasia 1+
[2024-06-04 09:09] LABS: Troponin I High Sensitivity 25.7 pg/ml (0-14)
[2024-06-04] MEDS: LEVALBUTEROL 1.25 MG/3 ML NEB NEB PRN (11:57)
[2024-06-04] MEDS: VANCOMYCIN HCL 1,000 MG/270 ML BAG IV SCH (12:33)
--- NOTE | 2024-06-04 13:07 | Pharmacy Report ---
Pharmacy PK ABX Note - Date of Service June 04, 2024 - Assessment and Plan Assessment 89 year old F receiving zosyn, vancomcyin, tamiflu for treatment of influenza A with possible secondary bacterial pna, possible UTI. Pertinent microbiologic data includes: Negative MRSA Nasal Swab, Blood and urine cultures pending Plan Vancomycin * Loading dose: 1250 mg IV x 1 * Maintenance dose: 1000 mg IV every 24 hours * Regimen is predicted to achieve target AUC/KENNY of 400-600 mg/L.hr * Random level to be ordered if continued > 48 hours Pharmacy will continue to follow and will adjust dose/frequency as necessary. Thank you. Pharmacy has transitioned to AUC monitoring for vancomycin. AUC/KENNY is the preferred PK/PD target and is associated with decreased risk of nephrotoxicity compared to traditional trough targets.
--- NOTE | 2024-06-04 13:21 | XRay Report ---
XR chest 1V portable CLINICAL HISTORY: Hypoxia. COMPARISON STUDY: Chest radiograph performed earlier today. FINDINGS: There are mediastinal surgical clips. Bibasilar opacities are again noted. There is no pneu mothorax or pleural effusion. The heart is moderately enlarged. There is pulmonary vascular congestio n. IMPRESSION: 1. Bibasilar opacities which could represent pneumonia, aspiration pneumonitis or atelectasis. Radiog raphic follow-up is recommended. 2. Cardiomegaly with pulmonary vascular congestion. ACT 112: Negative or not required by law. Electronically signed by: Juice Clinton M.D. 06/04/2024 1:19 PM
[2024-06-04] MEDS: guaiFENesin 600 MG TABCR PO SCH (13:37)
[2024-06-04] MEDS: SODIUM CHLOR 7% 4 ML NEB NEB SCH (20:06)
[2024-06-04] MEDS: SIMVASTATIN 10 MG TAB PO SCH (21:19)
[2024-06-04] MEDS: DONEPEZIL HCL 10 MG TAB PO SCH (21:21)
[2024-06-04] MEDS: ACETAMINOPHEN 325 MG TAB PO PRN (21:21)
[2024-06-05] MEDS: traZODone HCL 50 MG TAB PO PRN (01:18)
--- NOTE | 2024-06-05 08:05 | Hospitalist Progress Note ---
Date of Service June 05, 2024 Assessment & Plan (1) AMS (altered mental status): Plan: 89-year-old female residing at [facility] with past medical significant for Alzheimer's dementia, mood disorder, hypertension, hyperlipidemia, history of a flutter was brought in because of confusion, weakness and hypoxia and found to have influenza, and UTI and possible pneumonia. Currently patient is oriented name only. Says she is doing okay. Not answering other questions. Somewhat noncooperative with exam. Was saturating 79 % on room air. On 3 L saturating okay. Seems she is having cough. As per group home she was found to be more confused than usual. And oxygen saturation were low. No recent nausea vomiting. No diarrhea or constipation. And was very weak today she generally ambulates without support but was having difficulty ambulating today as per group home. Generally she can eat regular diet. Could not get any history from the patient currently. Altered mental status Underlying Alzheimer's dementia More confused than usual Most likely from UTI and flu and possible pneumonia Will monitor Mental status now much improved, pt awake and alert Influenza Droplet precautions Tamiflu Supportive care Acute UTI ER empirically started on Zosyn and Vanco Which will be continued Will follow cultures Ucultx posit. for E.coli given IV fluids on admission Possible pneumonia Zosyn and Vanco and p.o. Doxy Nebs as needed Alzheimer dementia On donezepil and memantine Monitor for delirium A flutter Continue home metoprolol IV Lopressor as needed she was first diagnosed with a flutter when she was admitted in 12/08 And she was placed on Eliquis at that time Currently seems not to be on Eliquis Verify with family in a.m. Consider cardiology consult Mild elevation troponin likely demand ischemia checked serial enzymes , also pt denies any chest pain echo Hyperlipidemia On statin Hypertension On metoprolol Mood disorder On buspirone and Ativan as needed DVT prophylaxis Heparin subcu Disposition Med/telemetry as CODE STATUS full code for now as group home could not find advanced directive Admission and Anticipated Discharge Date Admission Date: June 04, 2024 Subjective Pt seen in follow up of sepsis, hypoxia, +Flu, + E.coli UTI Today pt is much improved. She is awake and able to answer appropriately. Yesterday pt lethargic, not able to answer questions. Denies any chest pain or shortness of breath. Denies abd. pain n/v Worked with the pt on using flutter valve Review of Systems Review of Systems: All systems reviewed & are unremarkable except as noted in Subjective Physical Exam Physical Exam: General- thin elderly frail F on suppl. O2, in NAD Head- atraumatic Eyes- PERRL Neck- supple Lungs- + b/l rhonchi Heart- irregular; no murmur Abdomen- normal bowel sounds, soft, nontender, no distension. Extremities- no pretibial edema, no erythema seen Neuro- awake, alert, able to answer simple questions appropriately, no facial palsy; no dysarthria; moves extremities. Results & Data Results & Data Vital Signs (Past 12 Hours) Vital Signs Temp Pulse Pulse Pulse Resp BP Pulse Ox 06/05/24 07:37 36.5 C 69 18 149/89 H 98 06/05/24 07:34 85 06/05/24 04:51 06/05/24 01:41 36.4 C L 68 18 111/71 93 06/05/24 00:00 76 06/04/24 22:30 36.6 C 68 18 95/58 L 94 06/04/24 20:07 72 18 91 O2 Del Method O2 Flow Rate 06/05/24 07:37 High Flow Nasal Cannula 4 06/05/24 07:34 06/05/24 04:51 High Flow Nasal Cannula 4 06/05/24 01:41 High Flow Nasal Cannula 4 06/05/24 00:00 06/04/24 22:30 High Flow Nasal Cannula 4 06/04/24 20:07 Nasal Cannula 4 Laboratory Results 06/04/24 06/04/24 06/04/24 Range/Units 13:17 07:24 07:21 WBC 14.69 H (4.8-10.8) K/ul RBC 3.92 L (4.20-5.40) M/uL Hgb 11.4 L (12.0-16.0) g/dl Hct 35.5 L (37.0-47.0) % MCV 90.6 (80.0-100.0) fL MCH 29.1 (25.0-34.0) pg MCHC 32.1 (32.0-36.0) g/dL RDW Std Deviation 44.2 (36.4-46.3) fL RDW Coeff of Guera 13.3 (11.5-14.5) % Plt Count 165 (130-400) K/uL MPV 11.6 (9.4-12.4) fL Neutrophils % (Manual) 52 % Lymphocytes % (Manual) 10 % Monocytes % (Manual) 37 % Myelocytes % (Man) 1 % Neutrophils # (Manual) 7.64 H (1.40-6.50) K/uL Total Absolute Neuts 7.64 H (1.4-6.5) K/uL Lymphocytes # (Manual) 1.47 (1.2-3.4) K/uL Total Abs Lymphocytes 1.47 (1.2-3.4) K/uL Monocytes # (Manual) 5.44 H (0.11-0.59) K/uL Myelocytes # (Manual) 0.15 H (0-0) K/uL Polychromasia 1+ Sodium 141 (136-145) mmol/L Potassium 3.8 (3.5-5.1) mmol/L Chloride 110 H (98-107) mmol/L Carbon Dioxide 23 (21-32) mmol/L Anion Gap 8 (3-11) BUN 28 H (6-23) mg/dl Creatinine 1.00 (0.6-1.2) mg/dl Est Cr Clr Drug Dosing 37.5 ml/min eGFR 54.53 BUN/Creatinine Ratio 28.0 H (10-20) Glucose 112 H (70-99(Fasting)) mg/dl Calcium 8.3 L (8.6-10.3) mg/dl Magnesium 2.0 (1.7-2.4) mg/dl Troponin I High Sens 22.1 H 25.7 H (0-14) pg/ml Nasal Screen MRSA (PCR) Negative (Negative) Medications Administered Current Inpatient Medications Acetaminophen (Acetaminophen 325 Mg Tab) 650 mg PO Q4H PRN PRN Reason: Pain or Fever Stop: 07/04/24 05:11 Last Admin: 06/04/24 21:21 Dose: 650 mg Buspirone HCl (Buspirone 5 Mg Tab) 10 mg PO BID [facility] Stop: 07/04/24 08:59 Last Admin: 06/04/24 21:20 Dose: 10 mg Clopidogrel Bisulfate (Clopidogrel Bisulfate 75 Mg Tab) 75 mg PO DAILY [facility] Stop: 07/04/24 08:59 Last Admin: 06/04/24 08:21 Dose: 75 mg Donepezil HCl (Donepezil Hcl 10 Mg Tab) 10 mg PO HS [facility] Stop: 07/04/24 20:59 Last Admin: 06/04/24 21:21 Dose: 10 mg Doxycycline Hyclate (Doxycycline Hyclate 100 Mg Cap) 100 mg PO BID [facility] Stop: 06/09/24 08:59 Last Admin: 06/04/24 21:19 Dose: 100 mg Guaifenesin (Guaifenesin 600 Mg Tabcr) 600 mg PO Q12 JUAN C Stop: 07/04/24 13:24 Last Admin: 06/04/24 21:22 Dose: 600 mg Heparin Sodium (Porcine) (Heparin Sod 5,000 Unit/0.5 Ml Vial) 5,000 units SQ Q12 [facility] Stop: 07/04/24 08:59 Last Admin: 06/04/24 21:21 Dose: 5,000 units Piperacillin Sod/Tazobactam Sod (Zosyn) 4.5 gm in 100 mls @ 25 mls/hr IV Q8H [facility]; Protocol Stop: 06/09/24 07:59 Last Infusion: 06/05/24 05:16 Dose: Infused Sodium Chloride (Nss) 1,000 mls @ 80 mls/hr IV .[id number] [facility] Last Infusion: 06/04/24 18:33 Dose: 0 mls/hr Vancomycin HCl (Vancomycin Hcl) 1,000 mg in 270 mls @ 200 mls/hr IV Q24H [facility] Stop: 06/09/24 11:59 Last Infusion: 06/04/24 14:07 Dose: Infused Levalbuterol HCl (Levalbuterol 1.25 Mg/3 Ml Neb) 1.25 mg NEB Q4H PRN PRN Reason: Shortness Of Breath Or Wheezing Stop: 07/04/24 05:11 Last Admin: 06/04/24 11:57 Dose: 1.25 mg Lorazepam (Lorazepam 0.5 Mg Tab) 0.5 mg PO BID PRN PRN Reason: Anxiety Stop: 07/04/24 05:11 Memantine (Memantine Hcl 5 Mg Tab) 5 mg PO BID [facility] Stop: 07/04/24 08:59 Last Admin: 06/04/24 21:20 Dose: 5 mg Metoprolol Tartrate (Metoprolol Tartrate 25 Mg Tab) 25 mg PO BID JUAN C Stop: 07/04/24 08:59 Last Admin: 06/04/24 21:19 Dose: 25 mg Miscellaneous Information (Vancomycin Consult Active) 1 each N/A UD PRN PRN Reason: Consult Stop: 07/04/24 01:06 Multivitamins/Minerals (Cerovite Adv Formula Tab) 1 tab PO BID JUAN C Stop: 07/04/24 08:59 Last Admin: 06/04/24 21:19 Dose: 1 tab Nitroglycerin (Nitroglycerin Sl 0.4 Mg/Tab Tab) 0.4 mg SL Q5M PRN PRN Reason: Chest Pain Stop: 07/04/24 05:11 Oseltamivir Phosphate (Oseltamivir Phosphate Susp 30 Mg/5 Ml Udp) 30 mg PO BID [facility]; Protocol Stop: 06/09/24 08:59 Last Admin: 06/04/24 21:35 Dose: 30 mg Prenat Multivit/Kemper/Iron/Folic Ac ( Vitamin 1 Tab) 1 tab PO DAILY JUAN C Stop: 07/04/24 08:59 Last Admin: 06/04/24 08:22 Dose: 1 tab Simvastatin (Simvastatin 10 Mg Tab) 10 mg PO HS JUAN C Stop: 07/04/24 20:59 Last Admin: 06/04/24 21:19 Dose: 10 mg Sodium Chloride (Sodium Chlor 7% 4 Ml Neb) 4 ml NEB BIDR JUAN C Stop: 07/04/24 18:59 Last Admin: 06/04/24 20:06 Dose: 4 ml Trazodone HCl (Trazodone Hcl 50 Mg Tab) 25 mg PO HS PRN PRN Reason: Sleep Stop: 07/04/24 05:11 Last Admin: 06/05/24 01:18 Dose: 25 mg
[2024-06-05 09:15] LABS: iSTAT Arterial Blood Gas HCO3 22 meg/L (19-24); iSTAT Arterial Blood Gas pCO2 43 mmHg (35-46); iSTAT Arterial Blood Gas pH 7.32 (7.35-7.45); iSTAT Arterial Blood Gas pO2 82 mmHg (80-95); iSTAT Carbon Dioxide 23 mmol/L (24-31); iSTAT Hematocrit 32 % (37-47); iSTAT Hemoglobin 10.9 g/dl (12.0-16.0); iSTAT Potassium 3.8 mmol/L (3.3-5.0); iSTAT Sample Type Arterial; iSTAT Sodium 142 mmol/L (135-144)
[2024-06-05 10:33] LABS: Mean Corpuscular Hgb Conc 31.4 g/dL (32.0-36.0); Mean Corpuscular Volume 92.3 fL (80.0-100.0); Mean Platelet Volume 11.6 fL (9.4-12.4); Platelet Count 142 K/uL (130-400); RDW Coefficient of Variation 13.3 % (11.5-14.5); Red Blood Count 3.79 M/uL (4.20-5.40); White Blood Count 6.54 K/ul (4.8-10.8)
[2024-06-05 10:49] LABS: BUN Creatinine Ratio 33.3 (10-20); Calcium 8.8 mg/dl (8.6-10.3); Creatinine Clr Calc Pharmacy 36.6 ml/min; Phosphorus 3.1 mg/dl (2.5-4.9); Potassium 3.8 mmol/L (3.5-5.1)
[2024-06-05] MEDS: LORazepam 0.5 MG TAB PO PRN (19:29)
[2024-06-06 07:37] LABS: Hematocrit (blood only) 33.6 % (37.0-47.0); Hemoglobin 10.8 g/dl (12.0-16.0); Mean Corpuscular Hemoglobin 29.2 pg (25.0-34.0); Mean Corpuscular Hgb Conc 32.1 g/dL (32.0-36.0); Mean Corpuscular Volume 90.8 fL (80.0-100.0); Mean Platelet Volume 11.7 fL (9.4-12.4); Platelet Count 158 K/uL (130-400); RDW Coefficient of Variation 13.1 % (11.5-14.5); RDW Standard Deviation 43.8 fL (36.4-46.3); White Blood Count 6.97 K/ul (4.8-10.8)
[2024-06-06 07:55] LABS: Calcium 9.1 mg/dl (8.6-10.3); Creatinine Clr Calc Pharmacy 41.5 ml/min; Phosphorus 3.2 mg/dl (2.5-4.9)
--- NOTE | 2024-06-06 08:09 | Hospitalist Progress Note ---
Date of Service June 06, 2024 Assessment & Plan (1) AMS (altered mental status): Plan: 89-year-old female residing at [facility] with past medical significant for Alzheimer's dementia, mood disorder, hypertension, hyperlipidemia, history of a flutter was brought in because of confusion, weakness and hypoxia and found to have influenza, and UTI and possible pneumonia. Currently patient is oriented name only. Says she is doing okay. Not answering other questions. Somewhat noncooperative with exam. Was saturating 79 % on room air. On 3 L saturating okay. Seems she is having cough. As per [facility] she was found to be more confused than usual. And oxygen saturation were low. No recent nausea vomiting. No diarrhea or constipation. And was very weak today she generally ambulates without support but was having difficulty ambulating today as per [facility]. Generally she can eat regular diet. Could not get any history from the patient currently. Altered mental status Underlying Alzheimer's dementia More confused than usual Most likely from UTI and flu and possible pneumonia Will monitor Mental status much improved the next day, pt awake and alert Today pt is awake, but requires 1:1 Influenza Droplet precautions Tamiflu Supportive care Acute UTI ER empirically started on Zosyn and Vanco. stopped vanco Will follow cultures Ucultx posit. for E.coli given IV fluids on admission Possible pneumonia Zosyn and Vanco and p.o. Doxy. stopped vanco Nebs as needed Alzheimer dementia On donezepil and memantine Monitor for delirium A flutter Continue home metoprolol IV Lopressor as needed she was first diagnosed with a flutter when she was admitted in 12/08 And she was placed on Eliquis at that time Currently seems not to be on Eliquis Verify with family or [facility] Consider cardiology consult Mild elevation troponin likely demand ischemia checked serial enzymes , also pt denies any chest pain echo Hyperlipidemia On statin Hypertension On metoprolol Mood disorder On buspirone and Ativan as needed DVT prophylaxis Heparin subcu Disposition Med/telemetry as CODE STATUS full code for now as [facility] could not find advanced directive Admission and Anticipated Discharge Date Admission Date: June 04, 2024 Subjective Pt seen in follow up of sepsis, hypoxia, +Flu, + E.coli UTI Pt seen sitting in a chair with 1:1. She asking to lay down to bed. Somewhat confused but still cooperative and follows simple commands. Denies any chest pain or shortness of breath. Denies abd. pain n/v Yesterday she would use flutter valve, today she only tried once with me. Review of Systems Review of Systems: All systems reviewed & are unremarkable except as noted in HPI & below Physical Exam Physical Exam: General- thin elderly frail F on suppl. O2, in NAD Head- atraumatic Eyes- PERRL Neck- supple Lungs- + b/l rhonchi - improved Heart- irregular; no murmur Abdomen- normal bowel sounds, soft, nontender, no distension. Extremities- no pretibial edema, no erythema seen Neuro- awake, alert, able to answer simple questions, no facial palsy; no dysarthria; moves extremities. Results & Data Results & Data Vital Signs (Past 12 Hours) Vital Signs Temp Pulse Pulse Resp BP Pulse Ox O2 Del Method 06/06/24 07:53 71 20 93 Nasal Cannula 06/06/24 07:47 Nasal Cannula 06/06/24 07:03 36.3 C L 71 20 134/86 92 Nasal Cannula 06/06/24 04:00 36.8 C 63 18 142/83 H 94 Nasal Cannula 06/06/24 01:20 Room Air 06/05/24 20:48 77 18 94 Nasal Cannula O2 Flow Rate 06/06/24 07:53 2 06/06/24 07:47 2 06/06/24 07:03 2 06/06/24 04:00 2 06/06/24 01:20 2 06/05/24 20:48 2 Laboratory Results 06/06/24 06/05/24 06/04/24 Range/Units 06:48 09:56 12:15 WBC 6.97 6.54 (4.8-10.8) K/ul RBC 3.70 L 3.79 L (4.20-5.40) M/uL Hgb 10.8 L 11.0 L (12.0-16.0) g/dl POC Hgb 10.9 L (12.0-16.0) g/dl Hct 33.6 L 35.0 L (37.0-47.0) % POC Hct 32 L (37-47) % MCV 90.8 92.3 (80.0-100.0) fL MCH 29.2 29.0 (25.0-34.0) pg MCHC 32.1 31.4 L (32.0-36.0) g/dL RDW Std Deviation 43.8 45.0 (36.4-46.3) fL RDW Coeff of Guera 13.1 13.3 (11.5-14.5) % Plt Count 158 142 (130-400) K/uL MPV 11.7 11.6 (9.4-12.4) fL Specimen Type Arterial POC pH 7.32 L (7.35-7.45) POC pCO2 43 (35-46) mmHg POC pO2 82 (80-95) mmHg POC HCO3 22 (19-24) aleksandar/L POC Total CO2 23 L (24-31) mmol/L POC Base Excess -4.0 (-9-1.8) aleksandar/L POC ABG O2 Sat 95.0 (90-95) % POC Sodium 142 (135-144) mmol/L Sodium 142 141 (136-145) mmol/L POC Potassium 3.8 (3.3-5.0) mmol/L Potassium 4.0 3.8 (3.5-5.1) mmol/L Chloride 111 H 110 H (98-107) mmol/L Carbon Dioxide 26 24 (21-32) mmol/L Anion Gap 5 7 (3-11) BUN 31 H 33 H (6-23) mg/dl Creatinine 0.86 0.99 (0.6-1.2) mg/dl Est Cr Clr Drug Dosing 41.5 36.6 ml/min eGFR 65.34 55.19 BUN/Creatinine Ratio 36.0 H 33.3 H (10-20) Glucose 90 116 H (70-99(Fasting)) mg/dl Calcium 9.1 8.8 (8.6-10.3) mg/dl Phosphorus 3.2 3.1 (2.5-4.9) mg/dl Magnesium 2.0 2.0 (1.7-2.4) mg/dl Medications Administered Current Inpatient Medications Acetaminophen (Acetaminophen 325 Mg Tab) 650 mg PO Q4H PRN PRN Reason: Pain or Fever Stop: 07/04/24 05:11 Last Admin: 06/05/24 19:29 Dose: 650 mg Buspirone HCl (Buspirone 5 Mg Tab) 10 mg PO BID JUAN C Stop: 07/04/24 08:59 Last Admin: 06/06/24 07:18 Dose: 10 mg Clopidogrel Bisulfate (Clopidogrel Bisulfate 75 Mg Tab) 75 mg PO DAILY [facility] Stop: 07/04/24 08:59 Last Admin: 06/06/24 07:18 Dose: 75 mg Donepezil HCl (Donepezil Hcl 10 Mg Tab) 10 mg PO HS [facility] Stop: 07/04/24 20:59 Last Admin: 06/05/24 19:25 Dose: 10 mg Doxycycline Hyclate (Doxycycline Hyclate 100 Mg Cap) 100 mg PO BID [facility] Stop: 06/09/24 08:59 Last Admin: 06/06/24 07:17 Dose: 100 mg Guaifenesin (Guaifenesin 600 Mg Tabcr) 600 mg PO Q12 [facility] Stop: 07/04/24 13:24 Last Admin: 06/06/24 07:17 Dose: 600 mg Heparin Sodium (Porcine) (Heparin Sod 5,000 Unit/0.5 Ml Vial) 5,000 units SQ Q12 [facility] Stop: 07/04/24 08:59 Last Admin: 06/06/24 07:28 Dose: 5,000 units Piperacillin Sod/Tazobactam Sod (Zosyn) 4.5 gm in 100 mls @ 25 mls/hr IV Q8H [facility]; Protocol Stop: 06/09/24 07:59 Last Admin: 06/06/24 07:17 Dose: 25 mls/hr Sodium Chloride (Nss) 1,000 mls @ 80 mls/hr IV .[id number] [facility] Last Infusion: 06/04/24 18:33 Dose: 0 mls/hr Levalbuterol HCl (Levalbuterol 1.25 Mg/3 Ml Neb) 1.25 mg NEB Q4H PRN PRN Reason: Shortness Of Breath Or Wheezing Stop: 07/04/24 05:11 Last Admin: 06/04/24 11:57 Dose: 1.25 mg Lorazepam (Lorazepam 0.5 Mg Tab) 0.5 mg PO BID PRN PRN Reason: Anxiety Stop: 07/04/24 05:11 Last Admin: 06/05/24 19:29 Dose: 0.5 mg Memantine (Memantine Hcl 5 Mg Tab) 5 mg PO BID [facility] Stop: 07/04/24 08:59 Last Admin: 06/06/24 07:19 Dose: 5 mg Metoprolol Tartrate (Metoprolol Tartrate 25 Mg Tab) 25 mg PO BID JUAN C Stop: 07/04/24 08:59 Last Admin: 06/06/24 07:18 Dose: 25 mg Multivitamins/Minerals (Cerovite Adv Formula Tab) 1 tab PO BID JUAN C Stop: 07/04/24 08:59 Last Admin: 06/06/24 07:17 Dose: 1 tab Nitroglycerin (Nitroglycerin Sl 0.4 Mg/Tab Tab) 0.4 mg SL Q5M PRN PRN Reason: Chest Pain Stop: 07/04/24 05:11 Oseltamivir Phosphate (Oseltamivir Phosphate Susp 30 Mg/5 Ml Udp) 30 mg PO BID JUAN C; Protocol Stop: 06/09/24 08:59 Last Admin: 06/06/24 07:28 Dose: 30 mg Prenat Multivit/[place]/Iron/Folic Ac ( Vitamin 1 Tab) 1 tab PO DAILY JUAN C Stop: 07/04/24 08:59 Last Admin: 06/06/24 07:18 Dose: 1 tab Simvastatin (Simvastatin 10 Mg Tab) 10 mg PO HS JUAN C Stop: 07/04/24 20:59 Last Admin: 06/05/24 19:28 Dose: 10 mg Sodium Chloride (Sodium Chlor 7% 4 Ml Neb) 4 ml NEB BIDR JUAN C Stop: 07/04/24 18:59 Last Admin: 06/06/24 07:53 Dose: 4 ml Trazodone HCl (Trazodone Hcl 50 Mg Tab) 25 mg PO HS PRN PRN Reason: Sleep Stop: 07/04/24 05:11 Last Admin: 06/05/24 22:05 Dose: 25 mg
[2024-06-06] MEDS: diphenhydrAMINE Capsule 25 MG CAP PO ONE (18:24)
[2024-06-07 06:39] LABS: Hematocrit (blood only) 33.4 % (37.0-47.0); Hemoglobin 10.7 g/dl (12.0-16.0); Mean Corpuscular Hemoglobin 29.1 pg (25.0-34.0); Mean Corpuscular Volume 90.8 fL (80.0-100.0); Mean Platelet Volume 11.6 fL (9.4-12.4); Platelet Count 150 K/uL (130-400); RDW Coefficient of Variation 12.9 % (11.5-14.5); RDW Standard Deviation 42.7 fL (36.4-46.3); Red Blood Count 3.68 M/uL (4.20-5.40); White Blood Count 6.68 K/ul (4.8-10.8)
[2024-06-07 06:46] LABS: BUN Creatinine Ratio 31.1 (10-20); Calcium 9.2 mg/dl (8.6-10.3); Creatinine Clr Calc Pharmacy 38.9 ml/min; Magnesium 1.9 mg/dl (1.7-2.4); Phosphorus 3.1 mg/dl (2.5-4.9); Potassium 3.4 mmol/L (3.5-5.1)
--- NOTE | 2024-06-07 13:36 | Hospitalist Progress Note ---
Date of Service June 07, 2024 Assessment & Plan (1) AMS (altered mental status): Plan Pt is an 89-year-old female residing at [facility] with past medical significant for Alzheimer's dementia, mood disorder, hypertension, hyperlipidemia, history of a flutter who was brought in because of confusion, weakness and hypoxia and found to have influenza, and UTI and possible pneumonia. Acute Metabolic Encephalopathy Alzheimer's Dementia Pt with dementia at baseline, presented acutely confused as well Head CT ordered and pending AM TSH pending AM Ammonia level pending Likely in setting of acute infections with influenza, pneumonia and a UTI (see below) Continue home memantine and donepezil PRN Ativan as needed 1-1 sitter Delirium precautions. Frequent reorientation, avoid sedating medications as able Continue to monitor Acute hypoxic respiratory Failure Influenza Infection Possible pneumonia Pt requiring oxygen supplementation Currently on 2L Respiratory viral panel + influenza Chest XRAY noting possible pneumonia Procalcitonin elevated Consider CTA chest if pt able to tolerate without agitation Treated with Zosyn and doxycycline---> transitioned to po cefdinir and doxycycline to complete 10 days of treatment (day 3/10 today) Continue tamiflu to complete course, otherwise supportive care for the flu Wean oxygen as tolerated Improving Acute complicated UTI UA was suggestive of infection urine cx grew E coli Continue with po cefdinir for treatment as above Atrial flutter EKG noting atrial flutter Consider repeat echo if pt can tolerate Continue metoprolol 25mg BID IV Lopressor as needed she was first diagnosed with a flutter when she was admitted in 12/08 Not currently on anticoagulation Consider cardiology consult rates currently controlled Mild elevation troponin likely demand ischemia checked serial enzymes , also pt denies any chest pain Consider repeating echo Continue to monitor on telemetry Hyperlipidemia On statin Hypertension On metoprolol Mood disorder On buspirone and Ativan as needed Diet: HH DVT prophylaxis: Heparin subcu Dispo: To [facility] once medically stable, PT initially recommending dc to [facility] Admission and Anticipated Discharge Date Admission Date: June 04, 2024 Subjective Pt was seen sitting up in bed Sitter at bedside Stated she did not feel great Per nursing has been agitated and pulling at equipment Review of Systems Review of Systems: All systems reviewed & are unremarkable except as noted in Subjective Physical Exam Physical Exam: General: Alert. No acute distress HEENT: NC/AT CV: RRR Resp: Breath sounds coarse bilaterally, no increased effort of breathing Abdomen: Soft, nontender Extremities: No edema in lower extremities bilaterally. Results & Data Results & Data Vital Signs (Past 12 Hours) Vital Signs Temp Pulse Pulse Resp BP BP Pulse Ox 06/07/24 10:55 36.4 C L 59 L 16 113/72 95 06/07/24 09:23 06/07/24 07:08 88 18 91 06/07/24 06:54 36.2 C L 68 16 139/84 97 06/07/24 06:45 68 06/07/24 03:57 36.4 C L 68 18 135/81 93 O2 Del Method O2 Flow Rate 06/07/24 10:55 Nasal Cannula 2 06/07/24 09:23 Nasal Cannula 2 06/07/24 07:08 Oxymask 2 06/07/24 06:54 Oxymask 2 06/07/24 06:45 06/07/24 03:57 Oxymask 2 Diagnostic Findings Chest X-Ray 06/03/24 23:30 EXAM: XR chest 1V portable CLINICAL HISTORY: Sepsis. TECHNIQUE: An X-ray image of the chest is obtained in AP projection. COMPARISON: 11/29/2021 FINDINGS: Pulmonary Parenchyma: Prominent central bronchovascular markings with peribronchial thickening. Suspected left lower zone opacity. Obliteration of the left costophrenic angle. No evidence of right pleural effusion or pleural thickening. Mediastinum: No mediastinal widening or masses. Bony Thorax: Degenerative changes of the visualized skeleton. Soft Tissues: Postsurgical clips are noted in the mid and lower central chest. IMPRESSION: 1. Prominent central bronchovascular markings with peribronchial thickening. Clinical correlation is advised to assess for pulmonary congestion. (New finding) 2. Left lower zone faint opacity. (New finding). Could be related to pulmonary congestion, however, clinical correlation is advised to assess for an infectious process. 3. Mild left-sided pleural effusion/thickening. (Stable) Electronically signed by Ashlyn De La Cruz 06-04-2024 01:48 AM Chest X-Ray 06/04/24 12:20 XR chest 1V portable CLINICAL HISTORY: Hypoxia. COMPARISON STUDY: Chest radiograph performed earlier today. FINDINGS: There are mediastinal surgical clips. Bibasilar opacities are again noted. There is no pneumothorax or pleural effusion. The heart is moderately enlarged. There is pulmonary vascular congestion. IMPRESSION: 1. Bibasilar opacities which could represent pneumonia, aspiration pneumonitis or atelectasis. Radiographic follow-up is recommended. 2. Cardiomegaly with pulmonary vascular congestion. ACT 112: Negative or not required by law. Electronically signed by: Juice Clinton M.D. 06/04/2024 1:19 PM
[2024-06-07] MEDS: POTASSIUM CHLORIDE CRTAB 20 MEQ TABCR PO STA (20:54)
[2024-06-07] MEDS: CEFDINIR 300 MG CAP PO SCH (21:00)
[2024-06-07] MEDS ORDERED: PROMETHAZINE 6.25 MG/50.25 ML BAG IV PRN (21:50)
--- NOTE | 2024-06-07 22:07 | CT Scan Report ---
Exam(s): CT HEAD Without Contrast EXAM: CT Head Without Intravenous Contrast CLINICAL HISTORY: Reason for exam: AMS. TECHNIQUE: Axial computed tomography images of the head/brain without intravenous contrast. CTDI is 51.34 mGy and DLP is 899.15 mGy-cm. Automated exposure control was utilized for the study. A dose lowering technique was utilized adhering to the principles of ALARA. COMPARISON: 11/29/2021 FINDINGS: Brain: No intracranial hemorrhage, mass-effect, or cerebral edema. Atrophy and chronic microvascular ischemic changes. Basal ganglia calcifications. Ventricles: Unremarkable. Bones/joints: Unremarkable. No fracture. Soft tissues: Unremarkable. Sinuses: Mucosal thickening within the left ethmoid air cells and bilateral maxillary sinuses. No fluid level. Mastoid air cells: Unremarkable as visualized. IMPRESSION: 1. No acute intracranial abnormality. Electronically signed by: Fantasma Guerrero MD 06/07/24 22:06 PM
[2024-06-08] MEDS: PROMETHAZINE 6.25 MG/50.25 ML BAG IV STA (01:19)
[2024-06-08 05:55] LABS: Basophils # (auto) 0.02 K/uL (0.00-0.20); Basophils % (auto) 0.3 %; Eosinophils # (auto) 0.07 K/uL (0.00-0.50); Eosinophils % (auto) 0.9 %; Hematocrit (blood only) 34.2 % (37.0-47.0); Hemoglobin 11.2 g/dl (12.0-16.0); Immature Granulocytes # (auto) 0.16 K/uL (0.01-0.20); Immature Granulocytes % (auto) 2.2 %; Lymphocytes % (auto) 29.8 %; Mean Corpuscular Hemoglobin 28.9 pg (25.0-34.0); Mean Corpuscular Hgb Conc 32.7 g/dL (32.0-36.0); Mean Corpuscular Volume 88.4 fL (80.0-100.0); Mean Platelet Volume 10.9 fL (9.4-12.4); Monocytes # (auto) 1.68 K/uL (0.11-0.59); Monocytes % (auto) 22.7 %; Neutrophils # (auto) 3.26 K/uL (1.40-6.50); Neutrophils % (auto) 44.1 %; Platelet Count 159 K/uL (130-400); RDW Coefficient of Variation 12.6 % (11.5-14.5); RDW Standard Deviation 40.8 fL (36.4-46.3); Red Blood Count 3.87 M/uL (4.20-5.40); White Blood Count 7.39 K/ul (4.8-10.8)
[2024-06-08 06:18] LABS: Albumin Level 3.2 gm/dl (3.4-5.0); BUN Creatinine Ratio 30.9 (10-20); Bilirubin,Total 0.6 mg/dl (0.2-1.0); Calcium 9.2 mg/dl (8.6-10.3); Creatinine Clr Calc Pharmacy 43.3 ml/min; Globulin 3.1 gm/dl (2.5-4.0); Magnesium 1.8 mg/dl (1.7-2.4); Phosphorus 2.9 mg/dl (2.5-4.9); Total Protein 6.3 gm/dl (6.0-8.3)
[2024-06-08 06:32] LABS: Thyroid Stimulating Hormone 0.846 uIu/ml (0.300-4.500)
[2024-06-08] MEDS ORDERED: AMOXICILLIN/CLAVULANATE 875 MG TAB PO SCH (08:00)
[2024-06-08] MEDS: ADVANCED PROBIOTIC 625 MG CAPSULE PO SCH (08:37)
--- NOTE | 2024-06-08 15:33 | Hospitalist Progress Note ---
Date of Service June 08, 2024 Assessment & Plan (1) AMS (altered mental status): Plan Pt is an 89-year-old female residing at [facility] with past medical significant for Alzheimer's dementia, mood disorder, hypertension, hyperlipidemia, history of a flutter who was brought in because of confusion, weakness and hypoxia and found to have influenza, and UTI and possible pneumonia. Acute Metabolic Encephalopathy Alzheimer's Dementia Pt with dementia at baseline, presented acutely confused as well Head CT ordered and pending AM TSH pending AM Ammonia level pending Likely in setting of acute infections with influenza, pneumonia and a UTI (see below) Continue home memantine and donepezil PRN Ativan as needed 1-1 sitter Delirium precautions. Frequent reorientation, avoid sedating medications as able Continue to monitor Acute hypoxic respiratory Failure Influenza Infection Possible pneumonia Pt requiring oxygen supplementation Currently on 2L Respiratory viral panel + influenza Chest XRAY noting possible pneumonia Procalcitonin elevated Consider CTA chest if pt able to tolerate without agitation Treated with Zosyn and doxycycline---> transitioned to po cefdinir and doxycycline to complete 10 days of treatment (day 3/10 today) Continue tamiflu to complete course, otherwise supportive care for the flu Wean oxygen as tolerated Po prednisone Improving Acute complicated UTI UA was suggestive of infection urine cx grew E coli Continue with po cefdinir for treatment as above Atrial flutter EKG noting atrial flutter Consider repeat echo if pt can tolerate Continue metoprolol 25mg BID IV Lopressor as needed she was first diagnosed with a flutter when she was admitted in 12/08 Not currently on anticoagulation Consider cardiology consult rates currently controlled Mild elevation troponin likely demand ischemia checked serial enzymes , also pt denies any chest pain Consider repeating echo Continue to monitor on telemetry Hyperlipidemia On statin Hypertension On metoprolol Mood disorder On buspirone and Ativan as needed Diet: HH DVT prophylaxis: Heparin subcu Dispo: To [facility] once medically stable, PT initially recommending dc to [facility] Admission and Anticipated Discharge Date Admission Date: June 04, 2024 Subjective Pt was seen sitting up in bed Sitter at bedside Stated she felt better today Attempts made to wean patient off of oxygen were unsuccessful Review of Systems Review of Systems: All systems reviewed & are unremarkable except as noted in Subjective Physical Exam Physical Exam: General: Alert. No acute distress HEENT: NC/AT CV: RRR Resp: Breath sounds coarse bilaterally, no increased effort of breathing Abdomen: Soft, nontender Extremities: No edema in lower extremities bilaterally. Results & Data Results & Data Vital Signs (Past 12 Hours) Vital Signs Temp Pulse Pulse Resp BP BP Pulse Ox 06/08/24 14:32 37.0 C 70 18 161/92 H 96 06/08/24 10:05 71 142/88 H 97 06/08/24 09:00 06/08/24 08:35 36.7 C 68 20 170/104 H 98 06/08/24 07:21 69 06/08/24 07:09 69 14 97 06/08/24 06:53 36.7 C 69 18 170/104 H 98 O2 Del Method O2 Flow Rate 06/08/24 14:32 Nasal Cannula 1 06/08/24 10:05 Nasal Cannula 2 06/08/24 09:00 Nasal Cannula 2 06/08/24 08:35 Nasal Cannula 2 06/08/24 07:21 06/08/24 07:09 Nasal Cannula 2 06/08/24 06:53 Nasal Cannula 2 Diagnostic Findings Chest X-Ray 06/03/24 23:30 EXAM: XR chest 1V portable CLINICAL HISTORY: Sepsis. TECHNIQUE: An X-ray image of the chest is obtained in AP projection. COMPARISON: 11/29/2021 FINDINGS: Pulmonary Parenchyma: Prominent central bronchovascular markings with peribronchial thickening. Suspected left lower zone opacity. Obliteration of the left costophrenic angle. No evidence of right pleural effusion or pleural thickening. Mediastinum: No mediastinal widening or masses. Bony Thorax: Degenerative changes of the visualized skeleton. Soft Tissues: Postsurgical clips are noted in the mid and lower central chest. IMPRESSION: 1. Prominent central bronchovascular markings with peribronchial thickening. Clinical correlation is advised to assess for pulmonary congestion. (New finding) 2. Left lower zone faint opacity. (New finding). Could be related to pulmonary congestion, however, clinical correlation is advised to assess for an infectious process. 3. Mild left-sided pleural effusion/thickening. (Stable) Electronically signed by Ashlyn De La Cruz 06-04-2024 01:48 AM Chest X-Ray 06/04/24 12:20 XR chest 1V portable CLINICAL HISTORY: Hypoxia. COMPARISON STUDY: Chest radiograph performed earlier today. FINDINGS: There are mediastinal surgical clips. Bibasilar opacities are again noted. There is no pneumothorax or pleural effusion. The heart is moderately enlarged. There is pulmonary vascular congestion. IMPRESSION: 1. Bibasilar opacities which could represent pneumonia, aspiration pneumonitis or atelectasis. Radiographic follow-up is recommended. 2. Cardiomegaly with pulmonary vascular congestion. ACT 112: Negative or not required by law. Electronically signed by: Juice Clinton M.D. 06/04/2024 1:[address] 06/07/24 19:26 Exam(s): CT HEAD Without Contrast EXAM: CT Head Without Intravenous Contrast CLINICAL HISTORY: Reason for exam: AMS. TECHNIQUE: Axial computed tomography images of the head/brain without intravenous contrast. CTDI is 51.34 mGy and DLP is 899.15 mGy-cm. Automated exposure control was utilized for the study. A dose lowering technique was utilized adhering to the principles of ALARA. COMPARISON: 11/29/2021 FINDINGS: Brain: No intracranial hemorrhage, mass-effect, or cerebral edema. Atrophy and chronic microvascular ischemic changes. Basal ganglia calcifications. Ventricles: Unremarkable. Bones/joints: Unremarkable. No fracture. Soft tissues: Unremarkable. Sinuses: Mucosal thickening within the left ethmoid air cells and bilateral maxillary sinuses. No fluid level. Mastoid air cells: Unremarkable as visualized. IMPRESSION: 1. No acute intracranial abnormality. Electronically signed by: Fantasma Guerrero MD 06/07/24 22:06 PM
[2024-06-09 03:18] VITALS: TEMP 97.7
[2024-06-09 07:15] VITALS: O2SAT 93
[2024-06-09 08:16] LABS: Basophils # (auto) 0.02 K/uL (0.00-0.20); Basophils % (auto) 0.2 %; Eosinophils % (auto) 1.2 %; Hemoglobin 11.2 g/dl (12.0-16.0); Immature Granulocytes % (auto) 4.9 %; Lymphocytes # (auto) 1.63 K/uL (1.20-3.40); Lymphocytes % (auto) 19.8 %; Mean Corpuscular Hemoglobin 28.4 pg (25.0-34.0); Mean Corpuscular Volume 88.6 fL (80.0-100.0); Mean Platelet Volume 10.9 fL (9.4-12.4); Monocytes # (auto) 1.58 K/uL (0.11-0.59); Monocytes % (auto) 19.2 %; Neutrophils # (auto) 4.51 K/uL (1.40-6.50); Neutrophils % (auto) 54.7 %; Platelet Count 161 K/uL (130-400); RDW Coefficient of Variation 12.4 % (11.5-14.5); RDW Standard Deviation 40.1 fL (36.4-46.3); Red Blood Count 3.95 M/uL (4.20-5.40); White Blood Count 8.24 K/ul (4.8-10.8)
[2024-06-09 08:33] LABS: Albumin Globulin Ratio 1.1 (0.9-2); Albumin Level 3.5 gm/dl (3.4-5.0); BUN Creatinine Ratio 31.3 (10-20); Bilirubin,Total 0.6 mg/dl (0.2-1.0); Calcium 9.6 mg/dl (8.6-10.3); Creatinine Clr Calc Pharmacy 43.2 ml/min; Globulin 3.1 gm/dl (2.5-4.0); Magnesium 1.8 mg/dl (1.7-2.4); Phosphorus 3.1 mg/dl (2.5-4.9); Potassium 3.5 mmol/L (3.5-5.1); Total Protein 6.6 gm/dl (6.0-8.3)
[2024-06-09] MEDS: predniSONE 20 MG TAB PO SCH (09:35)
[2024-06-09 10:43] VITALS: RESP 18
--- NOTE | 2024-06-09 11:16 | Hospitalist Progress Note ---
Date of Service June 09, 2024 Assessment & Plan (1) AMS (altered mental status): Plan Pt is an 89-year-old female residing at [facility] with past medical significant for Alzheimer's dementia, mood disorder, hypertension, hyperlipidemia, history of a flutter who was brought in because of confusion, weakness and hypoxia and found to have influenza, and UTI and possible pneumonia. Acute Metabolic Encephalopathy Alzheimer's Dementia Pt with dementia at baseline, presented acutely confused as well Head CT ordered and pending AM TSH pending AM Ammonia level pending Likely in setting of acute infections with influenza, pneumonia and a UTI (see below) Continue home memantine and donepezil PRN Ativan as needed 1-1 sitter Delirium precautions. Frequent reorientation, avoid sedating medications as able Continue to monitor Acute hypoxic respiratory Failure Influenza Infection Possible pneumonia Pt requiring oxygen supplementation Currently on 2L Respiratory viral panel + influenza Chest XRAY noting possible pneumonia Procalcitonin elevated Consider CTA chest if pt able to tolerate without agitation Treated with Zosyn and doxycycline---> transitioned to po cefdinir and doxycycline to complete 10 days of treatment (day 3/10 today) Continue tamiflu to complete course, otherwise supportive care for the flu Wean oxygen as tolerated Po prednisone Improving Acute complicated UTI UA was suggestive of infection urine cx grew E coli Continue with po cefdinir for treatment as above Atrial flutter EKG noting atrial flutter Consider repeat echo if pt can tolerate Continue metoprolol 25mg BID IV Lopressor as needed she was first diagnosed with a flutter when she was admitted in 12/08 Not currently on anticoagulation Consider cardiology consult rates currently controlled Mild elevation troponin likely demand ischemia checked serial enzymes , also pt denies any chest pain Consider repeating echo Continue to monitor on telemetry Hyperlipidemia On statin Hypertension On metoprolol Mood disorder On buspirone and Ativan as needed Diet: HH DVT prophylaxis: Heparin subcu Dispo: To [facility] once medically stable, PT initially recommending dc to [facility] Admission and Anticipated Discharge Date Admission Date: June 04, 2024 Review of Systems Review of Systems: All systems reviewed & are unremarkable except as noted in Subjective Physical Exam Physical Exam: General: Alert. No acute distress HEENT: NC/AT CV: RRR Resp: Breath sounds coarse bilaterally, no increased effort of breathing Abdomen: Soft, nontender Extremities: No edema in lower extremities bilaterally. Results & Data Results & Data Vital Signs (Past 12 Hours) Vital Signs Temp Pulse Resp BP Pulse Ox O2 Del Method O2 Flow Rate 06/09/24 10:42 36.5 C 71 18 148/99 H 93 Room Air 06/09/24 07:14 106 H 20 93 Room Air 06/09/24 03:15 36.5 C 84 18 122/79 91 Nasal Cannula 2
--- NOTE | 2024-06-09 12:33 | Discharge Summary ---
Discharge Summary Date of Service June 09, 2024 Principal Dx & Hospital Course #1 = Principal Diagnosis (1) AMS (altered mental status): Plan Pt is an 89-year-old female residing at [facility] with past medical significant for Alzheimer's dementia, mood disorder, hypertension, hyperlipidemia, history of a flutter who was brought in because of confusion, weakness and hypoxia and found to have influenza, and UTI and possible pneumonia. Acute Metabolic Encephalopathy Alzheimer's Dementia Pt with dementia at baseline, presented acutely confused in this setting greater than baseline Head CT unremarkable TSH normal Ammonia level normal AMS likely in setting of acute infections with influenza, pneumonia and a UTI (see below) Continue home memantine and donepezil 1-1 sitter, has since been discontinued Delirium precautions. Frequent reorientation, avoid sedating medications as able On the day of discharge patient no longer requiring one-to-one sitter Acute hypoxic respiratory Failure Influenza Infection Possible pneumonia Pt requiring oxygen supplementation Currently on 2L Respiratory viral panel + for influenza Chest XRAY noting possible pneumonia Procalcitonin elevated Treated with Zosyn and doxycycline---> transitioned to po cefdinir and doxycycline to complete 10 days of treatment Completed course of tamiflu, otherwise supportive care for the flu Weaned oxygen as tolerated Po prednisone 40mg for 5 days On the day of discharge, patient not requiring oxygen. Discharged with an additional 5 days of p.o. cefdinir and doxycycline. Also discharged with prednisone and Mucinex. Continue with a probiotic while on antibiotics. Close PCP follow-up after discharge. Acute complicated UTI UA was suggestive of infection urine cx grew E coli Continue with po cefdinir for treatment as above Atrial flutter EKG noting atrial flutter, known diagnosis for this On metoprolol for rate control, increased to 25mg BID IV Lopressor as needed she was first diagnosed with a flutter when she was admitted in 12/08 Not currently on anticoagulation Close cardiology follow up after discharge rates controlled on the day of discharge Mild elevation troponin Trops elevated EKG noting atrial flutter, known diagnosis for this Asymptomatic pt denies any chest pain likely demand ischemia Hyperlipidemia On statin, continue Hypertension On metoprolol as above Mood disorder On buspirone and Ativan as needed Notes For Next Care Provider close cardiology follow-up recommended for atrial flutter Medication Changes From Visit continue with p.o. cefdinir and doxycycline for an additional 5 days with probiotic Mucinex for an additional 5 days prednisone 40 for an additional 4 days starting June 10, 2024 Metoprolol tartrate 25 mg twice a day Admission HPI Per Admitting Provider 89-year-old female residing at [facility] with past medical significant for Alzheimer's dementia, mood disorder, hypertension, hyperlipidemia, history of a flutter was brought in because of confusion, weakness and hypoxia and found to have influenza, and UTI and possible pneumonia. Currently patient is oriented name only. Says she is doing okay. Not answering other questions. Somewhat noncooperative with exam. Was saturating 79 % on room air. On 3 L saturating okay. Seems she is having cough. As per jail she was found to be more confused than usual. And oxygen saturation were low. No recent nausea vomiting. No diarrhea or constipation. And was very weak today she generally ambulates without support but was having difficulty ambulating today as per jail. Generally she can eat regular diet. Could not get any history from the patient currently. Past medical history. As mentioned above Past surgical history. Cataracts. History of pneumonectomy. Social history. No smoking. No alcohol use. Currently living at [facility] Family history. Significant for heart disease Admission Exam Per Admitting Provider General- Confused Head- atraumatic Eyes- PERRL ENT- oropharynx dry Neck- supple, no JVD. Lungs- clear to auscultation b/l rhonchi heard Heart- irregular rhythm; no murmur, no gallop. Abdomen- normal bowel sounds, soft, nontender, no distension. Extremities- no pretibial edema, no erythema seen Neuro- alert, oriented x 1. confused. PERRL, no facial palsy; no dysarthria; moves extremities. Does not obey commands Discharge Exam General: Alert. No acute distress HEENT: NC/AT CV: RRR Resp: Breath sounds coarse bilaterally, no increased effort of breathing Abdomen: Soft, nontender Extremities: No edema in lower extremities bilaterally. Updated Medication List Medication Instructions Recorded Confirmed Type cranberry 500 mg capsule 500 mg PO DAILY 11/29/21 06/04/24 History donepezil 10 mg tablet 10 mg PO HS 11/29/21 06/04/24 History memantine 5 mg tablet 5 mg PO BID 11/29/21 06/04/24 History multivitamin-iron (hematinic) 1 tab PO DAILY ##0 11/29/21 06/04/24 History simvastatin 10 mg tablet 10 mg PO HS 11/29/21 06/04/24 History vit C 250 mg-vit E 90 mg-zinc 40 1 cap PO BID 11/29/21 06/04/24 History mg-copper 1 [id number] capsule (PreserVision AREDS-2) buspirone 5 mg tablet 10 mg (2 x 5 mg) PO BID #60 tabs 12/03/21 06/04/24 Rx acetaminophen 500 mg tablet 1,000 mg PO Q8H PRN Pain 06/04/24 06/04/24 History clopidogrel 75 mg tablet 75 mg PO DAILY 06/04/24 06/04/24 History lorazepam 0.5 mg tablet 0.5 mg PO BID PRN Anxiety 06/04/24 06/04/24 History metoprolol tartrate 25 mg tablet 12.5 mg PO DAILY 06/04/24 06/04/24 History trazodone 50 mg tablet 25 mg PO HS PRN Sleep 06/04/24 06/04/24 History L.acidop,casei,lactis,rham-B.lact,penny 1 cap PO DAILY #30 caps 06/09/24 Rx 625 mg (10 billion cell) capsule (Advanced Probiotic) cefdinir 300 mg capsule 300 mg PO BID #9 caps 06/09/24 Rx doxycycline hyclate 100 mg capsule 100 mg PO BID #9 caps 06/09/24 Rx guaifenesin 600 mg tablet, 600 mg PO Q12 #10 tabs 06/09/24 Rx extended release 12 hr (Mucinex) metoprolol tartrate 25 mg tablet 25 mg PO BID #60 tabs 06/09/24 Rx prednisone 20 mg tablet 40 mg (2 x 20 mg) PO DAILY #8 tabs 06/09/24 Rx Hospital Stay Data Diagnostic Imagining Performed 06/07/24 19:[address] [CT head/brain wo con] Routine Chest X-Ray 06/03/24 23:30 EXAM: XR chest 1V portable CLINICAL HISTORY: Sepsis. TECHNIQUE: An X-ray image of the chest is obtained in AP projection. COMPARISON: 11/29/2021 FINDINGS: Pulmonary Parenchyma: Prominent central bronchovascular markings with peribronchial thickening. Suspected left lower zone opacity. Obliteration of the left costophrenic angle. No evidence of right pleural effusion or pleural thickening. Mediastinum: No mediastinal widening or masses. Bony Thorax: Degenerative changes of the visualized skeleton. Soft Tissues: Postsurgical clips are noted in the mid and lower central chest. IMPRESSION: 1. Prominent central bronchovascular markings with peribronchial thickening. Clinical correlation is advised to assess for pulmonary congestion. (New finding) 2. Left lower zone faint opacity. (New finding). Could be related to pulmonary congestion, however, clinical correlation is advised to assess for an infectious process. 3. Mild left-sided pleural effusion/thickening. (Stable) Electronically signed by Ashlny De La Cruz 06-04-2024 01:48 AM Chest X-Ray 06/04/24 12:20 XR chest 1V portable CLINICAL HISTORY: Hypoxia. COMPARISON STUDY: Chest radiograph performed earlier today. FINDINGS: There are mediastinal surgical clips. Bibasilar opacities are again noted. There is no pneumothorax or pleural effusion. The heart is moderately enlarged. There is pulmonary vascular congestion. IMPRESSION: 1. Bibasilar opacities which could represent pneumonia, aspiration pneumonitis or atelectasis. Radiographic follow-up is recommended. 2. Cardiomegaly with pulmonary vascular congestion. ACT 112: Negative or not required by law. Electronically signed by: Juice Clinton M.D. 06/04/2024 1:[address] 06/07/24 19:26 Exam(s): CT HEAD Without Contrast EXAM: CT Head Without Intravenous Contrast CLINICAL HISTORY: Reason for exam: AMS. TECHNIQUE: Axial computed tomography images of the head/brain without intravenous contrast. CTDI is 51.34 mGy and DLP is 899.15 mGy-cm. Automated exposure control was utilized for the study. A dose lowering technique was utilized adhering to the principles of ALARA. COMPARISON: 11/29/2021 FINDINGS: Brain: No intracranial hemorrhage, mass-effect, or cerebral edema. Atrophy and chronic microvascular ischemic changes. Basal ganglia calcifications. Ventricles: Unremarkable. Bones/joints: Unremarkable. No fracture. Soft tissues: Unremarkable. Sinuses: Mucosal thickening within the left ethmoid air cells and bilateral maxillary sinuses. No fluid level. Mastoid air cells: Unremarkable as visualized. IMPRESSION: 1. No acute intracranial abnormality. Electronically signed by: Fantasma Guerrero MD 06/07/24 22:06 PM Pending Results Patient Have Any Pending Studies at Discharge: No Discharge Instructions Given to Patient (Per Discharging Provider) Jerica, You are admitted and treated for an influenza infection with likely bacterial pneumonia as well as a urinary tract infection. We believe the acute change to your mental status in the setting of your known dementia was due to your acute infections. Please continue with the antibiotics cefdinir and doxycycline for an additional 5 days with the probiotic prescribed. Continue with the Mucinex prescribed for another 5 days to help with your congestion. To help with your breathing continue with the oral prednisone 40 mg daily prescribed, starting tomorrow. For your atrial flutter, you are metoprolol tartrate dose was increased to 25mg twice a day. Please keep close follow up with your primary care provider after discharge. Please do not hesitate to come back to the emergency room if your symptoms worsen or return. It was a pleasure taking care of you while you were here. Total Time Total Time Spent Total Time Spent (In Minutes): 60
[2024-06-09] MEDS: DOXYCYCLINE HYCLATE 100 MG CAP PO SCH (13:00)
[2024-06-09 13:31] VITALS: BP 149/79; PULSE 77
[2024-06-09] MEDS ORDERED: DOXYCYCLINE HYCLATE 100 MG CAP PO SCH (21:00)
== END 2024-06-09 13:52 | disposition home or self-care (01) | DRG 193 ==
LOC: ED 23:21 → EDINP 06-04 03:32 → SUATTDRO 06-04 03:32 → 2W 06-04 05:13

== ENCOUNTER 2024-06-24 12:19 | Inpatient (IN) ==
--- NOTE | 2024-06-24 12:36 | Emergency Department Note ---
History of Present Illness General Chief complaint: Confusion Time Seen by Provider: 06/24/24 12:22 Source: EMS History of Present Illness Provider complaint: Altered mental status 89-year-old female from correction presents emergency department for altered mental status. Patient has a history of dementia and is unable to give history. EMS crew reports that the correction was overwhelmed and the patient was reportedly acting confused earlier today. Recent fall and closed head injury seen in the emergency department discharge. No fevers. No vomiting. Home Medications Medication Instructions Recorded Confirmed Type cranberry 500 mg capsule 500 mg PO DAILY 11/29/21 06/04/24 History donepezil 10 mg tablet 10 mg PO HS 11/29/21 06/04/24 History memantine 5 mg tablet 5 mg PO BID 11/29/21 06/04/24 History multivitamin-iron (hematinic) 1 tab PO DAILY ##0 11/29/21 06/04/24 History simvastatin 10 mg tablet 10 mg PO HS 11/29/21 06/04/24 History vit C 250 mg-vit E 90 mg-zinc 40 1 cap PO BID 11/29/21 06/04/24 History mg-copper 1 [id number] capsule (PreserVision AREDS-2) buspirone 5 mg tablet 10 mg (2 x 5 mg) PO BID #60 tabs 12/03/21 06/04/24 Rx acetaminophen 500 mg tablet 1,000 mg PO Q8H PRN Pain 06/04/24 06/04/24 History clopidogrel 75 mg tablet 75 mg PO DAILY 06/04/24 06/04/24 History lorazepam 0.5 mg tablet 0.5 mg PO BID PRN Anxiety 06/04/24 06/04/24 History trazodone 50 mg tablet 25 mg PO HS PRN Sleep 06/04/24 06/04/24 History L.acidop,casei,lactis,rham-B.lact,penny 1 cap PO DAILY #30 caps 06/09/24 Rx 625 mg (10 billion cell) capsule (Advanced Probiotic) cefdinir 300 mg capsule 300 mg PO BID #9 caps 06/09/24 Rx doxycycline hyclate 100 mg capsule 100 mg PO BID #9 caps 06/09/24 Rx guaifenesin 600 mg tablet, 600 mg PO Q12 #10 tabs 02/21/25 Rx extended release 12 hr (Mucinex) metoprolol tartrate 25 mg tablet 25 mg PO BID #60 tabs 06/09/24 Rx prednisone 20 mg tablet 40 mg (2 x 20 mg) PO DAILY #8 tabs 06/09/24 Rx Allergies Allergy/AdvReac Type Severity Reaction Status Date / Time indomethacin AdvReac Unknown Verified 11/29/21 10:15 Past Med/Surg History Problem List (Updated 06/24/24 @ 14:09 by Bill Briseno MD) Hypokalemia (Acute) Pneumonia (Acute) Acute UTI (urinary tract infection) (Acute) Influenza A (Acute) Hypoxia (Acute) Unresponsive episode Rash Dementia (Acute) Medical History Head injury AMS (altered mental status) Atrial flutter with controlled response Hyperlipidemia Hypertension Alzheimer's dementia Surgical History Cataract History of pneumonectomy Family History Other Heart disease Social History Smoking Status: Never smoker Tobacco Type: Cigarettes Second Hand Exposure: No; Do You Dip or Chew Tobacco: No; Hx Alcohol Use: No Hx Substance Use: No Preferred Language: Khmer Communication Ability: Effective Research Nutritionist Required: No Beliefs That Will Affect Care: None Current Living Situation: Snf Current Living Situation Comment: [facility] How many Children do You have: 0 Feels Safe at Home: Yes Assistive Devices: Wheelchair Physical Exam Vital Signs Vital Signs - 24 hr 06/24/24 12:25 06/24/24 12:29 06/24/24 12:30 Temperature 36.3 C L Temperature Source Axillary Pulse Rate 92 H Pulse Rate [Apical] 92 H Respiratory Rate 16 21 Respiratory Effort / Characteristics Non-Labored Non-Labored Spontaneous Respiratory Depth Normal Normal Respiratory Pattern Blood Pressure 170/122 H Blood Pressure [Right Arm] Blood Pressure Mean 138 Blood Pressure Mean [Right Arm] Blood Pressure Position [Right Arm] Pulse Oximetry 98 98 98 Oxygen Delivery Method Room Air Room Air Room Air Sepsis Recent Fever Within 48 Hours No Sepsis New/Unexplained Change in Mental Status Yes Sepsis Action Taken by Nursing No Action Required 06/24/24 12:30 06/24/24 12:32 06/24/24 14:13 Temperature Temperature Source Pulse Rate Pulse Rate [Apical] 96 H 90 Respiratory Rate 20 16 Respiratory Effort / Characteristics Non-Labored Spontaneous Respiratory Depth Normal Respiratory Pattern Blood Pressure Blood Pressure [Right Arm] 136/95 148/101 H Blood Pressure Mean Blood Pressure Mean [Right Arm] 108 116 Blood Pressure Position [Right Arm] Sitting Pulse Oximetry 98 91 Oxygen Delivery Method Room Air Room Air Sepsis Recent Fever Within 48 Hours Sepsis New/Unexplained Change in Mental Status Sepsis Action Taken by Nursing 06/24/24 14:55 06/24/24 16:38 06/24/24 18:37 Temperature 36.5 C Temperature Source Oral Pulse Rate Pulse Rate [Apical] 101 H 98 H 88 Respiratory Rate 23 19 16 Respiratory Effort / Characteristics Non-Labored Spontaneous Non-Labored Spontaneous Respiratory Depth Normal Normal Respiratory Pattern Regular Blood Pressure Blood Pressure [Right Arm] 131/93 161/96 H 134/93 Blood Pressure Mean Blood Pressure Mean [Right Arm] 105 117 106 Blood Pressure Position [Right Arm] Semi-fowlers Lying Pulse Oximetry 92 92 Oxygen Delivery Method Room Air Room Air Room Air Sepsis Recent Fever Within 48 Hours Sepsis New/Unexplained Change in Mental Status Sepsis Action Taken by Nursing Physical Exam HENT: Exam performed. -Head: Contusion to the forehead. NECK: Normal range of motion. Neck supple. No JVD present. CV: Normal rate, regular rhythm, normal heart sounds and intact distal pulses. There is no peripheral edema. Palpable radial pulses bue. PULM/CHEST: Effort normal and breath sounds normal. No respiratory distress. No stridor. She has no wheezes. She has no rales. ABD: The abdomen is soft. NEURO: Motor and sensation grossly in tact Course Course 1222: The patient was evaluated in room A10. A complete history and physical exam was performed Cardiac monitoring: An order was placed for continuous cardiac monitoring. The monitor shows a rate of 90 with sinus rhythm interpreted by me 1410: Vital signs stable. Labs and imaging are unremarkable with the exception of low potassium. Potassium will be repleted in the emergency department the patient will be transferred back to her correction. 1720: At the time of EMS arrival to transport the patient back to her correction a family member arrived who identified himself as patient's [id number]-tam. He states he does not think that the patient is safe at the correction and was speaking with the occupational therapist assistant there. The occupational therapist assistant stated that she could not help get the patient more resources and help provide more care for her. [id number]-jr-wat is requesting that the patient be placed at a different correction. Pycyaur-pa-irq will meet with food stand manager. 1740: [id number] met with caseworker Jenelle and they recommend admission for placement. Administered Medications Discontinued Medications Potassium Chloride (K Barrie / Wtr) 10 meq in 100 mls @ 100 mls/hr IV Q1H JUAN C Stop: 06/24/24 16:44 Last Infusion: 06/24/24 16:45 Dose: Infused Documented By: Admin: 06/24/24 15:40 Dose: 100 mls/hr Documented By: JULIO CÉSAR Infusion: 06/24/24 15:40 Dose: Infused Documented By: JULIO CÉSAR Admin: 06/24/24 14:43 Dose: 100 mls/hr Documented By: ISSA Potassium Chloride (Potassium Chloride 10 Meq Tabcr) 20 meq PO NOW STA Stop: 06/24/24 14:10 Last Admin: 06/24/24 14:34 Dose: Not Given Documented By: ISSA Medical Decision Making Laboratory Data Attestation: I reviewed the patient's lab results. 06/24/24 13:00 06/24/24 13:00 Lab Results 06/24/24 06/24/24 06/24/24 Range/Units 12:35 13:00 13:03 WBC 13.21 H (4.8-10.8) K/ul RBC 4.83 (4.20-5.40) M/uL Hgb 14.1 (12.0-16.0) g/dl Hct 41.0 (37.0-47.0) % MCV 84.9 (80.0-100.0) fL MCH 29.2 (25.0-34.0) pg MCHC 34.4 (32.0-36.0) g/dL RDW Std Deviation 38.7 (36.4-46.3) fL RDW Coeff of Guera 12.7 (11.5-14.5) % Plt Count 282 (130-400) K/uL MPV 10.9 (9.4-12.4) fL Immature Gran % (Auto) 1.6 % Neut % (Auto) 46.7 % Lymph % (Auto) 16.3 % Sterling % (Auto) 31.4 % Eos % (Auto) 3.7 % Baso % (Auto) 0.3 % Neut # (Auto) 6.17 (1.40-6.50) K/uL Lymph # (Auto) 2.15 (1.20-3.40) K/uL Sterling # (Auto) 4.15 H (0.11-0.59) K/uL Eos # (Auto) 0.49 (0.00-0.50) K/uL Baso # (Auto) 0.04 (0.00-0.20) K/uL Immature Gran # (Auto) 0.21 H (0.01-0.20) K/uL VBG pH 7.44 H (7.36-7.41) VBG pCO2 52 H (38-50) mmHg VBG pO2 30 mmHg VBG HCO3 35 mmol/L VBG O2 Saturation < 60.0 % VBG Base Excess 9.4 mEq/L Sodium 130 L (136-145) mmol/L Potassium 2.8 L (3.5-5.1) mmol/L Chloride 91 L (98-107) mmol/L Carbon Dioxide 30 (21-32) mmol/L Anion Gap 9 (3-11) BUN 6 (6-23) mg/dl Creatinine 0.64 (0.6-1.2) mg/dl Est Cr Clr Drug Dosing 46.7 ml/min eGFR 85.48 BUN/Creatinine Ratio 9.4 L (10-20) Glucose 106 H (70-99(Fasting)) mg/dl POC Glucose 106 H (70-99) mg/dl Calcium 9.5 (8.6-10.3) mg/dl Magnesium 1.8 (1.7-2.4) mg/dl Total Bilirubin 1.2 H (0.2-1.0) mg/dl Direct Bilirubin 0.2 (0-0.2) mg/dl AST 24 (13-39) U/L ALT 13 (7-52) U/L Alkaline Phosphatase 106 H (34-104) U/L Ammonia 15.0 L (18-72) umol/L Total Protein 7.5 (6.0-8.3) gm/dl Albumin 4.0 (3.4-5.0) gm/dl Lipase 20 (11-82) U/L Urine Color Yellow Urine Appearance Clear (Clear) Urine pH 7.5 (4.5-7.5) Ur Specific [place] 1.014 (1.000-1.030) Urine Protein 1+ H (Negative) Urine Glucose (UA) Negative (Negative) Urine Ketones Trace H (Negative) Urine Blood Negative (Negative) Urine Nitrite Negative (Negative) Urine Bilirubin Negative (Negative) Urine Urobilinogen Negative (Negative) Ur Leukocyte Esterase Negative (Negative) Urine WBC (Auto) 0-5 (0-5) /hpf Urine RBC (Auto) 0-2 (0-2) /hpf U Hyaline Cast (Auto) 0-2 (0-2) /lpf U Epithel Cells (Auto) 0-2 (0-2) /hpf Urine Bacteria (Auto) 1+ H (None Seen) SARS-CoV-2 (PCR) NEGATIVE (Negative) Influenza Type A (PCR) Negative (Neg) Influenza Type B (PCR) Negative (Neg) RSV (RT-PCR) Negative (Neg) Imaging Data Attestation: I personally reviewed and interpreted this imaging study as follows: My Impression: Chest x-ray negative. Airway clear. No pneumothorax. No consolidation. No cardiomegaly or cephalization.. No free air under the diaphragm. No fractures of the skeletal structures. Radiologist's Impression: Chest X-Ray 06/24/24 12:28 XR chest 1V portable CLINICAL HISTORY: ams COMPARISON STUDY: 06/21/2024 FINDINGS: Stable surgical clips overlying the left upper mediastinum. Stable mild cardiomegaly without pulmonary vascular congestion. No effusion, consolidation, or pneumothorax. IMPRESSION: No acute findings. ACT 112: Negative or not required by law. Electronically signed by: Rajesh Cruz M.D. 06/24/2024 1:[address] 06/24/24 12:28 CT head/brain wo con CLINICAL HISTORY: ams. TECHNIQUE: Multiple axial CT images of the head were obtained without contrast. A dose lowering technique was utilized adhering to the principles of ALARA. CT DOSE: 1250.21 mGy.cm COMPARISON: 06/21/2024 FINDINGS: No intracranial hemorrhage seen. No mass effect, midline shift, or hydrocephalus. Stable mild chronic small vessel ischemic changes. No skull fracture seen. Visualized paranasal sinuses and mastoid air cells are clear. IMPRESSION: No acute findings. ACT 112: Negative or not required by law. The above report was generated using voice recognition software. It may contain grammatical, syntax or spelling errors. Electronically signed by: Rajesh Cruz M.D. 06/24/2024 1:36 PM [facility] Narrative 1222: The patient was evaluated in room A10. A complete history and physical exam was performed Cardiac monitoring: An order was placed for continuous cardiac monitoring. The monitor shows a rate of 90 with sinus rhythm interpreted by me 1410: Vital signs stable. Labs and imaging are unremarkable with the exception of low potassium. Potassium will be repleted in the emergency department the patient will be transferred back to her correction. 1720: At the time of EMS arrival to transport the patient back to her correction a family member arrived who identified himself as patient's [id number]-wrz. He states he does not think that the patient is safe at the correction and was speaking with the occupational therapist assistant there. The occupational therapist assistant stated that she could not help get the patient more resources and help provide more care for her. [id number]-wd-sxs is requesting that the patient be placed at a different correction. [id number] will meet with food stand manager. 1740: [id number] met with caseworker Jenelle and they recommend admission for placement. Impression & Plan Hypokalemia Discharge Plan Visit Data Chief Complaint: Confusion ED Provider: Bill Briseno Discharge Problem: Hypokalemia Patient Disposition: Being Evaluated by Hospitalist Discharge Instructions Vaibhav/Other Patient Handouts: ED Hypokalemia Forms Stand Alone Forms: [facility], Important Visit Information Prescriptions Prescriptions: No Action donepezil 10 mg Tablet 10 mg PO HS simvastatin 10 mg Tablet 10 mg PO HS cranberry 500 mg Capsule 500 mg PO DAILY Rx Instructions: administer with meals multivitamin-iron (hematinic) Tablet 1 tab PO DAILY Qty: 0 memantine 5 mg Tablet 5 mg PO BID PreserVision AREDS-2 250-90-40-1 mg Capsule 1 cap PO BID buspirone 5 mg Tablet 10 mg PO BID Qty: 60 0RF trazodone 50 mg tablet 25 mg PO HS PRN (Reason: Sleep) clopidogrel 75 mg tablet 75 mg PO DAILY acetaminophen 500 mg Tablet 1,000 mg PO Q8H PRN (Reason: Pain) lorazepam 0.5 mg tablet 0.5 mg PO BID PRN (Reason: Anxiety) cefdinir 300 mg Capsule 300 mg PO BID Qty: 9 0RF doxycycline hyclate 100 mg Capsule 100 mg PO BID Qty: 9 0RF metoprolol tartrate 25 mg Tablet 25 mg PO BID Qty: 60 0RF prednisone 20 mg Tablet 40 mg PO DAILY Qty: 8 0RF guaifenesin [Mucinex] 600 mg Tablet Extended Release 12hr 600 mg PO Q12 Qty: 10 0RF Advanced Probiotic 625 mg (10 billion cell) Capsule 1 cap PO DAILY Qty: 30 0RF Referrals Referrals: Moise Lang DO [Primary Care Provider] - (Follow-up in 1-7 days.)
[2024-06-24 13:16] LABS: Base Excess VBG 9.4 mEq/L; HCO3 VBG 35 mmol/L; Oxygen Saturation VBG < 60.0 %; PCO2 VBG 52 mmHg (38-50); PO2 VBG 30 mmHg; pH VBG 7.44 (7.36-7.41)
[2024-06-24 13:22] LABS: Hemoglobin 14.1 g/dl (12.0-16.0); Mean Corpuscular Hemoglobin 29.2 pg (25.0-34.0); Mean Corpuscular Hgb Conc 34.4 g/dL (32.0-36.0); Mean Corpuscular Volume 84.9 fL (80.0-100.0); Mean Platelet Volume 10.9 fL (9.4-12.4); Platelet Count 282 K/uL (130-400); RDW Coefficient of Variation 12.7 % (11.5-14.5); RDW Standard Deviation 38.7 fL (36.4-46.3); Red Blood Count 4.83 M/uL (4.20-5.40)
[2024-06-24 13:26] LABS: Appearance Urine Clear (Clear); Bacteria Urine Automated 1+ (None Seen); Bilirubin Urine Negative (Negative); Blood Urine Negative (Negative); Cast Urine Automated 0-2 /lpf (0-2); Color Urine Yellow; Epithelial Cell Urine Auto 0-2 /hpf (0-2); Glucose Urine UA Negative (Negative); Ketones Urine Trace (Negative); Leukocyte Esterase Urine Negative (Negative); Nitrite Urine Negative (Negative); Protein Urine 1+ (Negative); RBC Urine Automated 0-2 /hpf (0-2); Specific Gravity Urine 1.014 (1.000-1.030); Urobilinogen Urine Negative (Negative); WBC Urine Automated 0-5 /hpf (0-5); pH Urine 7.5 (4.5-7.5)
[2024-06-24 13:33] LABS: Bilirubin Direct 0.2 mg/dl (0-0.2); Bilirubin,Total 1.2 mg/dl (0.2-1.0); Calcium 9.5 mg/dl (8.6-10.3); Potassium 2.8 mmol/L (3.5-5.1)
--- NOTE | 2024-06-24 13:35 | XRay Report ---
XR chest 1V portable CLINICAL HISTORY: ams COMPARISON STUDY: 06/21/2024 FINDINGS: Stable surgical clips overlying the left upper mediastinum. Stable mild cardiomegaly withou t pulmonary vascular congestion. No effusion, consolidation, or pneumothorax. IMPRESSION: No acute findings. ACT 112: Negative or not required by law. Electronically signed by: Rajesh Cruz M.D. 06/24/2024 1:34 PM
--- NOTE | 2024-06-24 13:37 | CT Scan Report ---
CT head/brain wo con CLINICAL HISTORY: ams. TECHNIQUE: Multiple axial CT images of the head were obtained without contrast. A dose lowering tech nique was utilized adhering to the principles of ALARA. CT DOSE: 1250.21 mGy.cm COMPARISON: 06/21/2024 FINDINGS: No intracranial hemorrhage seen. No mass effect, midline shift, or hydrocephalus. Stable mi ld chronic small vessel ischemic changes. No skull fracture seen. Visualized paranasal sinuses and ma stoid air cells are clear. IMPRESSION: No acute findings. ACT 112: Negative or not required by law. The above report was generated using voice recognition software. It may contain grammatical, syntax o r spelling errors. Electronically signed by: Rajesh Cruz M.D. 06/24/2024 1:36 PM
[2024-06-24 13:39] LABS: BUN Creatinine Ratio 9.4 (10-20); Creatinine Clr Calc Pharmacy 46.7 ml/min; Total Protein 7.5 gm/dl (6.0-8.3)
[2024-06-24 13:43] LABS: Basophils # (auto) 0.04 K/uL (0.00-0.20); Basophils % (auto) 0.3 %; Eosinophils # (auto) 0.49 K/uL (0.00-0.50); Eosinophils % (auto) 3.7 %; Immature Granulocytes # (auto) 0.21 K/uL (0.01-0.20); Immature Granulocytes % (auto) 1.6 %; Lymphocytes # (auto) 2.15 K/uL (1.20-3.40); Lymphocytes % (auto) 16.3 %; Monocytes # (auto) 4.15 K/uL (0.11-0.59); Monocytes % (auto) 31.4 %; Neutrophils # (auto) 6.17 K/uL (1.40-6.50); Neutrophils % (auto) 46.7 %; White Blood Count 13.21 K/ul (4.8-10.8)
[2024-06-24 13:51] LABS: Influenza A virus by PCR Negative (Neg); Influenza B virus by PCR Negative (Neg); RSV by PCR Negative (Neg); SARS CoV2 RNA(COVID-19) Ceph NEGATIVE (Negative)
[2024-06-24] MEDS: POTASSIUM CHLORIDE 10 MEQ TABCR PO STA (14:34)
[2024-06-24] MEDS: POTASSIUM CHLORIDE / WTR 10 MEQ/100 ML PLCT IV SCH ×2 (14:43→21:01)
--- NOTE | 2024-06-24 20:13 | History & Physical Report ---
Date of Service June 24, 2024 Assessment & Plan (1) AMS (altered mental status): (2) Alzheimer's dementia: (3) Acute hyponatremia: Plan: Patient is an 89-year-old female with history of Alzheimer's dementia, atrial flutter, hypertension, dyslipidemia, mood disorder presenting with agitation from the assisted living facility. Altered mental status Likely secondary to hyponatremia, dehydration, progression of Alzheimer dementia Alzheimer's dementia Patient presents with agitation while at assisted living facility this morning, while at the ER, patient was found to be lethargic later during the day. Noted to be having physical and cognitive decline over the past few months per family Was also Admitted last month for respiratory failure, flu, pneumonia CT head: No acute process Ammonia: Normal ABG: pH 7.4, pCO2 52, bicarb 35 No clear focus of infection at this point, will hold off on antibiotics Patient found to be hyponatremic, hypokalemic-appears volume depleted from her oral intake-likely contributing to her altered mental status Patient also exhibiting signs of progression/worsening Alzheimer's dementia Start IV NSS with potassium Replete potassium with K riders Monitor BMP Continue donepezil, memantine Will need to transition from assisted living to long-term facility Atrial flutter Continue metoprolol 25 mg twice daily Not on anticoagulation Hyperlipidemia On statin, continue Hypertension On metoprolol as above Mood disorder On buspirone On trazodone as needed for sleep DVT prophylaxis Hold off on heparin in light of hematoma on the left forehead CODE STATUS DNR as per [id number]/BROOKE Ayala Disposition Currently residing at assisted living, will need to transition to long-term facility Admission and Anticipated Discharge Date Admission Date: June 24, 2024 History of Present Illness Chief Complaint: Agitation at the assisted living facility Primary Care Provider: Moise Lang DO Patient is an 89-year-old female with history of Alzheimer's dementia, atrial flutter, hypertension, dyslipidemia, mood disorder presenting with agitation from the assisted living facility. History obtained from patient's previous charts, ED physician, and [id number] Jamie at the bedside who is her power of ip attorney. As per Jamie, patient has been showing further cognitive decline and generalized weakness for the past few months. She is pleasantly confused at baseline, can hold simple conversations and able to ambulate some. Patient was discharged from [facility] last June 09, 2024 after being admitted for acute hypoxic respiratory failure secondary to influenza A, and pneumonia. Since discharge from the hospital, the patient was noted to be declining further as per family. On June 21, 2024, the patient had a fall while trying to get up from her recliner. She was evaluated at [facility] ED, multiple imaging studies did not reveal any acute injuries. As per family, she had at least 2 more falls while at the assisted living facility. Today, the patient was noted to be agitated while at the assisted living facility. As per family, patient would have intermittent episodes of agitation. At the ER, patient received with vital signs blood pressure 170/122 improving to 136/95, heart rate 96, respiratory 16, 98% on room air, 36.3 C. Sodium 130, potassium 2.8 CT head: No acute process Chest x-ray no pneumonia UA: No UTI Patient was given p.o. potassium and K rider. She was about to be discharged to long-term facility but patient's family prefers patient to be transition to long-term facility in light of declining mental and physical status. On exam, patient seen with [id number]/POA at the bedside. She is mostly sleeping, not in distress, no signs of pain, shortness of breath. As per family, the patient is mostly sleepy for the past couple of weeks. No other symptoms or issues per family. Allergies Allergy/AdvReac Type Severity Reaction Status Date / Time indomethacin AdvReac Unknown Verified 11/29/21 10:15 Home Medications Medication Instructions Recorded Confirmed Type cranberry 500 mg capsule 500 mg PO DAILY 11/29/21 06/24/24 History donepezil 10 mg tablet 10 mg PO HS 11/29/21 06/24/24 History memantine 5 mg tablet 5 mg PO BID 11/29/21 06/24/24 History multivitamin-iron (hematinic) 1 tab PO DAILY ##0 11/29/21 06/24/24 History simvastatin 10 mg tablet 10 mg PO HS 11/29/21 06/24/24 History vit C 250 mg-vit E 90 mg-zinc 40 1 cap PO BID 11/29/21 06/24/24 History mg-copper 1 [id number] capsule (PreserVision AREDS-2) buspirone 5 mg tablet 10 mg (2 x 5 mg) PO BID #60 tabs 12/03/21 06/24/24 Rx acetaminophen 500 mg tablet 1,000 mg PO Q8H PRN Pain 06/04/24 06/24/24 History clopidogrel 75 mg tablet 75 mg PO DAILY 06/04/24 06/24/24 History lorazepam 0.5 mg tablet 0.5 mg PO BID PRN Anxiety 06/04/24 06/24/24 History trazodone 50 mg tablet 25 mg PO HS PRN Sleep 06/04/24 06/24/24 History metoprolol tartrate 25 mg tablet 25 mg PO BID #60 tabs 06/09/24 06/24/24 Rx Past Med/Surg History Problem List (Updated 06/24/24 @ 20:22 by Zachariah Ruiz MD) Acute hyponatremia Hypokalemia (Acute) Pneumonia (Acute) Acute UTI (urinary tract infection) (Acute) Influenza A (Acute) Hypoxia (Acute) Unresponsive episode Rash Dementia (Acute) Medical History Head injury AMS (altered mental status) Atrial flutter with controlled response Hyperlipidemia Hypertension Alzheimer's dementia Surgical History Cataract History of pneumonectomy Family History Other Heart disease Social History Smoking Status: Never smoker Tobacco Type: Cigarettes Second Hand Exposure: No; Do You Dip or Chew Tobacco: No; Hx Alcohol Use: No Hx Substance Use: No Preferred Language: Frisian Communication Ability: Effective [employer] Required: No Beliefs That Will Affect Care: None Current Living Situation: Prison Current Living Situation Comment: [facility] How many Children do You have: 0 Feels Safe at Home: Yes Assistive Devices: Wheelchair Review of Systems Review of Systems: all noted and negative except for above Physical Exam Physical Exam: General-lethargic, not in distress,breathing with no effort or accessory muscle use Head- Positive hematoma left forehead Eyes- anicteric ENT-dry oral mucosa Neck- supple, no JVD, no adenopathy, no thyromegaly; carotids +2/2, no bruits appreciated Lungs- clear to auscultation bilaterally, no rales/wheezes Heart- normal rate, regular rhythm; no murmur, no gallop, no rub appreciated Abdomen- normal bowel sounds, nondistended, soft, nontender, no masses or hepatosplenomegaly Extremities- no pretibial edema, no calf tenderness; peripheral pulses intact (+) small hematomas on BL upper arm and lower legs Neuro- lethargic Skin- warm & dry Results & Data Results & Data Vital Signs (Past 12 Hours) Vital Signs Temp Pulse Pulse Resp BP BP Pulse Ox 06/24/24 19:23 36.6 C 105 H 15 132/97 92 06/24/24 18:37 88 16 134/93 92 06/24/24 16:38 36.5 C 98 H 19 161/96 H 92 06/24/24 14:55 101 H 23 131/93 06/24/24 14:13 90 16 148/101 H 91 06/24/24 12:32 96 H 20 136/95 06/24/24 12:30 98 06/24/24 12:30 92 H 21 98 06/24/24 12:29 98 06/24/24 12:25 36.3 C L 92 H 16 170/122 H 98 O2 Del Method 06/24/24 19:23 Room Air 06/24/24 18:37 Room Air 06/24/24 16:38 Room Air 06/24/24 14:55 Room Air 06/24/24 14:13 Room Air 06/24/24 12:32 06/24/24 12:30 Room Air 06/24/24 12:30 Room Air 06/24/24 12:29 Room Air 06/24/24 12:25 Room Air all noted and reviewed including below
[2024-06-24] MEDS: NSS + 20MEQ KCL 20 MEQ/1,000 ML BAG IV SCH (20:54)
[2024-06-24] MEDS: METOPROLOL TARTRATE 25 MG TAB PO SCH (23:08)
[2024-06-25 07:08] LABS: BUN Creatinine Ratio 11.5 (10-20); Calcium 8.9 mg/dl (8.6-10.3); Magnesium 1.7 mg/dl (1.7-2.4); Potassium 3.2 mmol/L (3.5-5.1)
[2024-06-25] MEDS: MEMANTINE HCL 5 MG TAB PO SCH (08:14)
[2024-06-25] MEDS: CLOPIDOGREL BISULFATE 75 MG TAB PO SCH (08:14)
[2024-06-25] MEDS: busPIRone 5 MG TAB PO SCH (08:14)
[2024-06-25 08:37] LABS: Hematocrit (blood only) 37.9 % (37.0-47.0); Hemoglobin 12.9 g/dl (12.0-16.0); Mean Corpuscular Hemoglobin 29.5 pg (25.0-34.0); Mean Corpuscular Volume 86.5 fL (80.0-100.0); Platelet Count 292 K/uL (130-400); RDW Coefficient of Variation 12.7 % (11.5-14.5); RDW Standard Deviation 39.8 fL (36.4-46.3); Red Blood Count 4.38 M/uL (4.20-5.40); White Blood Count 11.18 K/ul (4.8-10.8)
[2024-06-25] MEDS: POTASSIUM CHLORIDE / WTR 10 MEQ/100 ML PLCT IV SCH (09:52)
[2024-06-25] MEDS: cefTRIAXone SODIUM 2,000 MG/50 ML BAG IV SCH (11:22)
--- NOTE | 2024-06-25 13:24 | Hospitalist Progress Note ---
Date of Service June 25, 2024 Assessment & Plan (1) AMS (altered mental status): (2) Alzheimer's dementia: (3) Acute hyponatremia: Plan: Patient is an 89-year-old female with history of Alzheimer's dementia, atrial flutter, hypertension, dyslipidemia, mood disorder presenting with agitation from the assisted living facility. Altered mental status Likely secondary to hyponatremia, dehydration, progression of Alzheimer dementia, metabolic encephalopathy due to suspected UTI Alzheimer's dementia Patient presents with agitation while at assisted living facility this morning, while at the ER, patient was found to be lethargic later during the day. Noted to be having physical and cognitive decline over the past few months per family. Was also Admitted last month for respiratory failure, flu, pneumonia --CT head: No acute process --Ammonia: Normal --ABG: pH 7.4, pCO2 52, bicarb 35 --Continue gentle IV fluids Monitor electrolytes Continue home medications--donepezil, memantine PT OT, fall precaution Monitor sodium levels Suspected UTI Urine culture pending Empirically started on Rocephin Follow-up cultures Hypokalemia Replete and monitor Atrial flutter Continue metoprolol 25 mg twice daily Not on anticoagulation Hyperlipidemia On statin, continue Hypertension On metoprolol as above Monitor blood pressure Mood disorder On buspirone On trazodone as needed for sleep DVT prophylaxis Hold off chemical anticoagulation due to hematoma SCDs for now CODE STATUS DNR/DNI Disposition Currently residing at [facility] Case management to help with discharge planning Admission and Anticipated Discharge Date Admission Date: June 24, 2024 Subjective Patient is seen and examined at bedside Pleasantly confused Unable to obtain much history Noted minimal cough during my encounter No distress on exam Abnormal urine culture noted Review of Systems Review of Systems: All systems reviewed & are unremarkable except as noted in Subjective Physical Exam Physical Exam: Physical Exam: Vitals signs as noted above General Appearance: Thin, frail, no apparent distress Head: normocephalic, traumatic, forehead hematoma Eyes: normal inspection, EOMI Neck: supple, Trachea midline Respiratory/Chest: Normal breath sounds, CTA, No accessory muscle use Cardiovascular: S1, S2, No murmur Abdomen/GI:Soft, Non tender, Bowel sounds present Extremities/Musculoskeletal:normal inspection, no edema, ecchymosis on extremities Neurologic/Psych:Alert, awake, grossly no focal neurological deficits Skin: normal color, warm Results & Data Results & Data Vital Signs (Past 12 Hours) Vital Signs Temp Pulse Resp BP BP Pulse Ox O2 Del Method 06/25/24 09:20 120/81 06/25/24 07:20 36.4 C L 88 14 166/97 H 170/104 H 95 Room Air Laboratory Results Short CBC 06/24/24 06/25/24 06/25/24 Range/Units 13:00 06:10 08:16 WBC 13.21 H Cancelled 11.18 H (4.8-10.8) K/ul Hgb 14.1 Cancelled 12.9 (12.0-16.0) g/dl Hct 41.0 Cancelled 37.9 (37.0-47.0) % Plt Count 282 Cancelled 292 (130-400) K/uL BMP 06/24/24 06/25/24 13:00 06:10 Sodium 130 L 131 L Potassium 2.8 L 3.2 L Chloride 91 L 97 L Carbon Dioxide 30 28 BUN 6 7 Creatinine 0.64 0.61 Glucose 106 H 89 Calcium 9.5 8.9 Liver Function 06/24/24 Range/Units 13:00 Total Bilirubin 1.2 H (0.2-1.0) mg/dl Direct Bilirubin 0.2 (0-0.2) mg/dl AST 24 (13-39) U/L ALT 13 (7-52) U/L Alkaline Phosphatase 106 H (34-104) U/L Albumin 4.0 (3.4-5.0) gm/dl Urine 06/24/24 Range/Units 13:03 Urine Color Yellow Urine Appearance Clear (Clear) Urine pH 7.5 (4.5-7.5) Ur Specific [place] 1.014 (1.000-1.030) Urine Protein 1+ H (Negative) Urine Glucose (UA) Negative (Negative)
[2024-06-25] MEDS: DONEPEZIL HCL 10 MG TAB PO SCH (20:11)
[2024-06-25] MEDS: SIMVASTATIN 10 MG TAB PO SCH (20:11)
[2024-06-25] MEDS: ACETAMINOPHEN 325 MG TAB PO PRN (20:12)
[2024-06-26 07:57] LABS: Hematocrit (blood only) 37.1 % (37.0-47.0); Hemoglobin 12.7 g/dl (12.0-16.0); Mean Corpuscular Hemoglobin 29.2 pg (25.0-34.0); Mean Corpuscular Hgb Conc 34.2 g/dL (32.0-36.0); Mean Corpuscular Volume 85.3 fL (80.0-100.0); Mean Platelet Volume 11.2 fL (9.4-12.4); Platelet Count 282 K/uL (130-400); RDW Coefficient of Variation 12.9 % (11.5-14.5); RDW Standard Deviation 40.2 fL (36.4-46.3); Red Blood Count 4.35 M/uL (4.20-5.40); White Blood Count 9.34 K/ul (4.8-10.8)
[2024-06-26 08:25] LABS: BUN Creatinine Ratio 9.5 (10-20); Creatinine Clr Calc Pharmacy 47.5 ml/min; Magnesium 1.6 mg/dl (1.7-2.4); Potassium 3.1 mmol/L (3.5-5.1)
[2024-06-26] MEDS: POTASSIUM CHLORIDE CRTAB 20 MEQ TABCR PO ONE (09:03)
[2024-06-26] MEDS: MAGNESIUM SULFATE / D5W 1 GM/100 ML BAG IV ONE (10:00)
--- NOTE | 2024-06-26 15:11 | Hospitalist Progress Note ---
Date of Service June 26, 2024 Assessment & Plan (1) AMS (altered mental status): (2) Alzheimer's dementia: (3) Acute hyponatremia: Plan: Patient is an 89-year-old female with history of Alzheimer's dementia, atrial flutter, hypertension, dyslipidemia, mood disorder presenting with agitation from the assisted living facility. Altered mental status Likely secondary to hyponatremia, dehydration, progression of Alzheimer dementia, metabolic encephalopathy due to suspected UTI Alzheimer's dementia Patient presents with agitation while at assisted living facility this morning, while at the ER, patient was found to be lethargic later during the day. Noted to be having physical and cognitive decline over the past few months per family. Was also Admitted last month for respiratory failure, flu, pneumonia --CT head: No acute process --Ammonia: Normal --ABG: pH 7.4, pCO2 52, bicarb 35 Received IV fluids Monitor electrolytes Continue home medications--donepezil, memantine PT OT, fall precaution Sodium level improved to 133 Monitor sodium levels Mental status much improved Urinary tract infection--POA Urine culture:Kluyvera species Continue IV Rocephin Transition to oral antibiotics as able Hypokalemia Replete and monitor Atrial flutter Continue metoprolol 25 mg twice daily Not on anticoagulation Hyperlipidemia On statin, continue Hypertension On metoprolol as above Monitor blood pressure Mood disorder On buspirone On trazodone as needed for sleep DVT prophylaxis Hold off chemical anticoagulation due to hematoma SCDs for now CODE STATUS DNR/DNI Disposition Currently residing at assisted living SNF as able Admission and Anticipated Discharge Date Admission Date: June 24, 2024 Subjective Patient is seen and examined at bedside Pleasantly confused Mental status seem to be much improved. Leukocytosis resolved Comfortable lying in bed during encounter Denies any chest pain, dyspnea, abdominal pain Urine cultures reviewed Review of Systems Review of Systems: Unobtainable due to cognitive status Physical Exam Physical Exam: Physical Exam: Vitals signs as noted above General Appearance: Thin, frail, no apparent distress Head: normocephalic, traumatic, forehead hematoma Eyes: normal inspection, EOMI Neck: supple, Trachea midline Respiratory/Chest: Normal breath sounds, CTA, No accessory muscle use Cardiovascular: S1, S2, No murmur Abdomen/GI:Soft, Non tender, Bowel sounds present Extremities/Musculoskeletal:normal inspection, no edema, ecchymosis on extremities Neurologic/Psych:Alert, awake, grossly no focal neurological deficits Skin: normal color, warm Results & Data Results & Data Vital Signs (Past 12 Hours) Vital Signs Pulse Resp BP Pulse Ox O2 Del Method 06/26/24 08:40 Room Air 06/26/24 07:06 75 16 179/92 H 95 Room Air Laboratory Results Short CBC 06/26/24 Range/Units 06:58 WBC 9.34 (4.8-10.8) K/ul Hgb 12.7 (12.0-16.0) g/dl Hct 37.1 (37.0-47.0) % Plt Count 282 (130-400) K/uL [facility] 06/26/24 06:58 Sodium 133 L Potassium 3.1 L Chloride 99 Carbon Dioxide 27 BUN 6 Creatinine 0.63 Glucose 86 Calcium 9.0
[2024-06-26 16:09] VITALS: TEMP 97.5
[2024-06-26 19:42] VITALS: O2SAT 94
[2024-06-26] MEDS: MAGNESIUM CHLORIDE W/CALCIUM 64MG DELAYED REL TAB PO SCH (19:43)
[2024-06-27 07:31] VITALS: BP 155/92; PULSE 66; RESP 18
[2024-06-27 07:31] LABS: BUN Creatinine Ratio 11.3 (10-20); Calcium 9.5 mg/dl (8.6-10.3); Creatinine Clr Calc Pharmacy 42.1 ml/min; Magnesium 1.9 mg/dl (1.7-2.4); Potassium 3.1 mmol/L (3.5-5.1)
[2024-06-27 07:32] LABS: Hematocrit (blood only) 41.8 % (37.0-47.0); Hemoglobin 14.1 g/dl (12.0-16.0); Mean Corpuscular Hgb Conc 33.7 g/dL (32.0-36.0); Mean Corpuscular Volume 85.8 fL (80.0-100.0); Mean Platelet Volume 10.6 fL (9.4-12.4); Platelet Count 265 K/uL (130-400); RDW Coefficient of Variation 12.9 % (11.5-14.5); RDW Standard Deviation 39.9 fL (36.4-46.3); Red Blood Count 4.87 M/uL (4.20-5.40); White Blood Count 9.18 K/ul (4.8-10.8)
[2024-06-27] MEDS ORDERED: cefTRIAXone SODIUM 2,000 MG/50 ML BAG IV SCH (08:10)
--- NOTE | 2024-06-27 08:55 | Hospitalist Progress Note ---
Date of Service June 27, 2024 Assessment & Plan (1) AMS (altered mental status): (2) Alzheimer's dementia: (3) Acute hyponatremia: Plan: Patient is an 89-year-old female with history of Alzheimer's dementia, atrial flutter, hypertension, dyslipidemia, mood disorder presenting with agitation from the assisted living facility. Altered mental status Likely secondary to hyponatremia, dehydration, progression of Alzheimer dementia, metabolic encephalopathy due to suspected UTI Alzheimer's dementia Patient presents with agitation while at assisted living facility this morning, while at the ER, patient was found to be lethargic later during the day. Noted to be having physical and cognitive decline over the past few months per family. Was also Admitted last month for respiratory failure, flu, pneumonia --CT head: No acute process --Ammonia: Normal --ABG: pH 7.4, pCO2 52, bicarb 35 Received IV fluids Monitor electrolytes Continue home medications--donepezil, memantine PT OT, fall precaution Monitor sodium levels Mental status seem to be back to baseline Encourage increased protein intake to help with sodium levels Needs follow-up with PCP with repeat blood work in 1 week on discharge Urinary tract infection--POA Urine culture:Kluyvera species Continue IV Rocephin Transition to oral antibiotics to complete the course Hypokalemia Replete and monitor Atrial flutter Continue metoprolol 25 mg twice daily Not on anticoagulation Hyperlipidemia On statin, continue Hypertension On metoprolol as above Monitor blood pressure Mood disorder On buspirone On trazodone as needed for sleep DVT prophylaxis Hold off chemical anticoagulation due to hematoma SCDs for now CODE STATUS DNR/DNI Disposition SNF Admission and Anticipated Discharge Date Admission Date: June 24, 2024 Subjective Patient is seen and examined at bedside Mental status seem to be back to baseline Sitting in chair during my encounter Offers no new complaints today Denies any chest pain, dyspnea, abdominal pain Plan to discharge to SNF today Review of Systems Review of Systems: Other Physical Exam Physical Exam: Physical Exam: Vitals signs as noted above General Appearance: Thin, frail, no apparent distress Head: normocephalic, traumatic, forehead hematoma Eyes: normal inspection, EOMI Neck: supple, Trachea midline Respiratory/Chest: Normal breath sounds, CTA, No accessory muscle use Cardiovascular: S1, S2, No murmur Abdomen/GI:Soft, Non tender, Bowel sounds present Extremities/Musculoskeletal:normal inspection, no edema, ecchymosis on extremities Neurologic/Psych:Alert, awake, grossly no focal neurological deficits Skin: normal color, warm Results & Data Results & Data Vital Signs (Past 12 Hours) Vital Signs Temp Pulse Resp BP Pulse Ox O2 Del Method 06/27/24 07:30 36.4 C L 66 18 155/92 H 94 Room Air Laboratory Results Short CBC 06/27/24 Range/Units 06:57 WBC 9.18 (4.8-10.8) K/ul Hgb 14.1 (12.0-16.0) g/dl Hct 41.8 (37.0-47.0) % Plt Count 265 (130-400) K/uL BMP 06/27/24 06:57 Sodium 130 L Potassium 3.1 L Chloride 93 L Carbon Dioxide 27 BUN 8 Creatinine 0.71 Glucose 86 Calcium 9.5
[2024-06-27] MEDS: POTASSIUM CHLORIDE CRTAB 20 MEQ TABCR PO ONE (09:17)
--- NOTE | 2024-06-27 12:44 | Discharge Summary ---
Date of Service June 27, 2024 Admission HPI Per Admitting Provider Patient is an 89-year-old female with history of Alzheimer's dementia, atrial flutter, hypertension, dyslipidemia, mood disorder presenting with agitation from the assisted living facility. History obtained from patient's previous charts, ED physician, and [id number] Jamie at the bedside who is her power of senior trial attorney. As per Jamie, patient has been showing further cognitive decline and generalize d weakness for the past few months. She is pleasantly confused at baseline, can hold simple conversations and able to ambulate some. Patient was discharged from [facility] last June 09, 2024 after being admitted for acute hypoxic respiratory failure secondary to influenza A, and pneumonia. Since discharge from the hospital, the patient was noted to be declining further as per family. On June 21, 2024, the patient had a fall while trying to get up from her recliner. She was evaluated at [facility] ED, multiple imaging studies did not reveal any acute injuries. As per family, she had at least 2 more falls while at the assisted living facility. Today, the patient was noted to be agitated while at the assisted living facility. As per family, patient would have intermittent episodes of agitation. At the ER, patient received with vital signs blood pressure 170/122 improving to 136/95, heart rate 96, respiratory 16, 98% on room air, 36.3 C. Sodium 130, potassium 2.8 CT head: No acute process Chest x-ray no pneumonia UA: No UTI Patient was given p.o. potassium and K rider. She was about to be discharged to care home facility but patient's family prefers patient to be transition to care home facility in light of declining mental and physical status. On exam, patient seen with [id number] at the bedside. She is mostly sleeping, not in distress, no signs of pain, shortness of breath. As per family, the patient is mostly sleepy for the past couple of weeks. No other symptoms or issues per family. Admission Exam Per Admitting Provider General-lethargic, not in distress,breathing with no effort or accessory muscle use Head- Positive hematoma left forehead Eyes- anicteric ENT-dry oral mucosa Neck- supple, no JVD, no adenopathy, no thyromegaly; carotids +2/2, no bruits appreciated Lungs- clear to auscultation bilaterally, no rales/wheezes Heart- normal rate, regular rhythm; no murmur, no gallop, no rub appreciated Abdomen- normal bowel sounds, nondistended, soft, nontender, no masses or hepatosplenomegaly Extremities- no pretibial edema, no calf tenderness; peripheral pulses intact (+) small hematomas on BL upper arm and lower legs Neuro- lethargic Skin- warm & dry Principal Diagnosis Acute metabolic encephalopathy Hyponatremia Hypokalemia Urinary tract infection Alzheimer's dementia Discharge Data Allergies Allergy/AdvReac Type Severity Reaction Status Date / Time indomethacin AdvReac Unknown Verified 11/29/21 10:15 Consultations 06/24/24 17:49 ED Decision to Admit Stat Procedures Performed Laboratory Results WBC 9.18 K/ul (4.8-10.8) 06/27/24 06:57 RBC 4.87 M/uL (4.20-5.40) 06/27/24 06:57 Hgb 14.1 g/dl (12.0-16.0) 06/27/24 06:57 Hct 41.8 % (37.0-47.0) 06/27/24 06:57 MCV 85.8 fL (80.0-100.0) 06/27/24 06:57 MCH 29.0 pg (25.0-34.0) 06/27/24 06:57 MCHC 33.7 g/dL (32.0-36.0) 06/27/24 06:57 RDW Std Deviation 39.9 fL (36.4-46.3) 06/27/24 06:57 RDW Coeff of Guera 12.9 % (11.5-14.5) 06/27/24 06:57 Plt Count 265 K/uL (130-400) 06/27/24 06:57 MPV 10.6 fL (9.4-12.4) 06/27/24 06:57 Immature Gran % (Auto) Cancelled 06/25/24 06:10 Neut % (Auto) Cancelled 06/25/24 06:10 Lymph % (Auto) Cancelled 06/25/24 06:10 Ray % (Auto) Cancelled 06/25/24 06:10 Eos % (Auto) Cancelled 06/25/24 06:10 Baso % (Auto) Cancelled 06/25/24 06:10 Neut # (Auto) Cancelled 06/25/24 06:10 Lymph # (Auto) Cancelled 06/25/24 06:10 Ray # (Auto) Cancelled 06/25/24 06:10 Eos # (Auto) Cancelled 06/25/24 06:10 Baso # (Auto) Cancelled 06/25/24 06:10 Immature Gran # (Auto) Cancelled 06/25/24 06:10 Absolute Nucleated RBC Cancelled 06/25/24 06:10 Nucleated RBC % (auto) Cancelled 06/25/24 06:10 Neutrophils % (Manual) Cancelled 06/25/24 06:10 Band Neutrophils % Cancelled 06/25/24 06:10 Lymphocytes % (Manual) Cancelled 06/25/24 06:10 Prolymphocyte % Cancelled 06/25/24 06:10 Reactive Lymphs % (Man) Cancelled 06/25/24 06:10 Monocytes % (Manual) Cancelled 06/25/24 06:10 Eosinophils % (Manual) Cancelled 06/25/24 06:10 Basophils % (Manual) Cancelled 06/25/24 06:10 Metamyelocytes % (Man) Cancelled 06/25/24 06:10 Myelocytes % (Man) Cancelled 06/25/24 06:10 Promyelocytes % (Man) Cancelled 06/25/24 06:10 Blast Cells % (Manual) Cancelled 06/25/24 06:10 Plasma Cell % (Manual) Cancelled 06/25/24 06:10 Other Cells % Cancelled 06/25/24 06:10 Nucleated RBC % Cancelled 06/25/24 06:10 Neutrophils # (Manual) Cancelled 06/25/24 06:10 Band Neutrophils # Cancelled 06/25/24 06:10 Total Absolute Neuts Cancelled 06/25/24 06:10 Lymphocytes # (Manual) Cancelled 06/25/24 06:10 Prolymphocyte # Cancelled 06/25/24 06:10 Reactive Lymphs # Cancelled 06/25/24 06:10 Total Abs Lymphocytes Cancelled 06/25/24 06:10 Monocytes # (Manual) Cancelled 06/25/24 06:10 Eosinophils # (Manual) Cancelled 06/25/24 06:10 Basophils # (Manual) Cancelled 06/25/24 06:10 Metamyelocytes # (Man) Cancelled 06/25/24 06:10 Myelocytes # (Manual) Cancelled 06/25/24 06:10 Promyelocytes # (Man) Cancelled 06/25/24 06:10 Blast Cells # (Man) Cancelled 06/25/24 06:10 Plasma Cell # (Manual) Cancelled 06/25/24 06:10 Other Cells # Cancelled 06/25/24 06:10 Nucleated RBCs # (Man) Cancelled 06/25/24 06:10 Hypersegmented Neuts Cancelled 06/25/24 06:10 Hyposegmented Neuts Cancelled 06/25/24 06:10 Hypogranular Neuts Cancelled 06/25/24 06:10 Large Granular Lymphs Cancelled 06/25/24 06:10 # Lrg Granular Lymphs Cancelled 06/25/24 06:10 Hairy Cells Cancelled 06/25/24 06:10 Smudge Cells Cancelled 06/25/24 06:10 Toxic Granulation Cancelled 06/25/24 06:10 Toxic Vacuolation Cancelled 06/25/24 06:10 Dohle Bodies Cancelled 06/25/24 06:10 Federico Rods Cancelled 06/25/24 06:10 Platelet Estimate Cancelled 06/25/24 06:10 Hypogranular Platelets Cancelled 06/25/24 06:10 Giant Platelets Cancelled 06/25/24 06:10 Platelet Satelliting Cancelled 06/25/24 06:10 RBC Morphology Cancelled 06/25/24 06:10 Polychromasia Cancelled 06/25/24 06:10 Hypochromasia Cancelled 06/25/24 06:10 Poikilocytosis Cancelled 06/25/24 06:10 Basophilic Stippling Cancelled 06/25/24 06:10 Anisocytosis Cancelled 06/25/24 06:10 Microcytosis Cancelled 06/25/24 06:10 Macrocytosis Cancelled 06/25/24 06:10 Spherocytes Cancelled 06/25/24 06:10 Pappenheimer Bodies Cancelled 06/25/24 06:10 Sickle Cells Cancelled 06/25/24 06:10 Target Cells Cancelled 06/25/24 06:10 Tear Drop Cells Cancelled 06/25/24 06:10 Ovalocytes Cancelled 06/25/24 06:10 Stomatocytes Cancelled 06/25/24 06:10 Gold-Hobson Bodies Cancelled 06/25/24 06:10 Echinocytes Cancelled 06/25/24 06:10 Acanthocytes (Spur) Cancelled 06/25/24 06:10 Rouleaux Cancelled 06/25/24 06:10 RBC Agglutinates Cancelled 06/25/24 06:10 Schistocytes Cancelled 06/25/24 06:10 Sezary Cell Cancelled 06/25/24 06:10 VBG pH 7.44 (7.36-7.41) H 06/24/24 13:00 VBG pCO2 52 mmHg (38-50) H 06/24/24 13:00 VBG pO2 30 mmHg 06/24/24 13:00 VBG HCO3 35 mmol/L 06/24/24 13:00 VBG O2 Saturation < 60.0 % 06/24/24 13:00 VBG Base Excess 9.4 mEq/L 06/24/24 13:00 Sodium 130 mmol/L (136-145) L 06/27/24 06:57 Potassium 3.1 mmol/L (3.5-5.1) L 06/27/24 06:57 Chloride 93 mmol/L (98-107) L 06/27/24 06:57 Carbon Dioxide 27 mmol/L (21-32) 06/27/24 06:57 Anion Gap 10 (3-11) 06/27/24 06:57 BUN 8 mg/dl (6-23) 06/27/24 06:57 Creatinine 0.71 mg/dl (0.6-1.2) 06/27/24 06:57 Est Cr Clr Drug Dosing 42.1 ml/min 06/27/24 06:57 eGFR 82.24 06/27/24 06:57 BUN/Creatinine Ratio 11.3 (10-20) 06/27/24 06:57 Glucose 86 mg/dl (70-99(Fasting)) 06/27/24 06:57 POC Glucose 106 mg/dl (70-99) H 06/24/24 12:35 Calcium 9.5 mg/dl (8.6-10.3) 06/27/24 06:57 Magnesium 1.9 mg/dl (1.7-2.4) 06/27/24 06:57 Total Bilirubin 1.2 mg/dl (0.2-1.0) H 06/24/24 13:00 Direct Bilirubin 0.2 mg/dl (0-0.2) 06/24/24 13:00 AST 24 U/L (13-39) 06/24/24 13:00 ALT 13 U/L (7-52) 06/24/24 13:00 Alkaline Phosphatase 106 U/L (34-104) H 06/24/24 13:00 Ammonia 15.0 umol/L (18-72) L 06/24/24 13:00 Total Protein 7.5 gm/dl (6.0-8.3) 06/24/24 13:00 Albumin 4.0 gm/dl (3.4-5.0) 06/24/24 13:00 Lipase 20 U/L (11-82) 06/24/24 13:00 Urine Color Yellow 06/24/24 13:03 Urine Appearance Clear (Clear) 06/24/24 13:03 Urine pH 7.5 (4.5-7.5) 06/24/24 13:03 Ur Specific Floyd 1.014 (1.000-1.030) 06/24/24 13:03 Urine Protein 1+ (Negative) H 06/24/24 13:03 Urine Glucose (UA) Negative (Negative) 06/24/24 13:03 Urine Ketones Trace (Negative) H 06/24/24 13:03 Urine Blood Negative (Negative) 06/24/24 13:03 Urine Nitrite Negative (Negative) 06/24/24 13:03 Urine Bilirubin Negative (Negative) 06/24/24 13:03 Urine Urobilinogen Negative (Negative) 06/24/24 13:03 Ur Leukocyte Esterase Negative (Negative) 06/24/24 13:03 Urine WBC (Auto) 0-5 /hpf (0-5) 06/24/24 13:03 Urine RBC (Auto) 0-2 /hpf (0-2) 06/24/24 13:03 U Hyaline Cast (Auto) 0-2 /lpf (0-2) 06/24/24 13:03 U Epithel Cells (Auto) 0-2 /hpf (0-2) 06/24/24 13:03 Urine Bacteria (Auto) 1+ (None Seen) H 06/24/24 13:03 SARS-CoV-2 (PCR) NEGATIVE (Negative) 06/24/24 13:03 Influenza Type A (PCR) Negative (Neg) 06/24/24 13:03 Influenza Type B (PCR) Negative (Neg) 06/24/24 13:03 RSV (RT-PCR) Negative (Neg) 06/24/24 13:03 Blood Parasites ID Cancelled 06/25/24 06:10 Impressions Chest X-Ray 06/24/24 12:28 XR chest 1V portable CLINICAL HISTORY: ams COMPARISON STUDY: 06/21/2024 FINDINGS: Stable surgical clips overlying the left upper mediastinum. Stable mild cardiomegaly without pulmonary vascular congestion. No effusion, consolidation, or pneumothorax. IMPRESSION: No acute findings. ACT 112: Negative or not required by law. Electronically signed by: Rajesh Cruz M.D. 06/24/2024 1:[address] 06/24/24 12:28 CT head/brain wo con CLINICAL HISTORY: ams. TECHNIQUE: Multiple axial CT images of the head were obtained without contrast. A dose lowering technique was utilized adhering to the principles of ALARA. CT DOSE: 1250.21 mGy.cm COMPARISON: 06/21/2024 FINDINGS: No intracranial hemorrhage seen. No mass effect, midline shift, or hydrocephalus. Stable mild chronic small vessel ischemic changes. No skull fracture seen. Visualized paranasal sinuses and mastoid air cells are clear. IMPRESSION: No acute findings. ACT 112: Negative or not required by law. The above report was generated using voice recognition software. It may contain grammatical, syntax or spelling errors. Electronically signed by: Rajesh Cruz M.D. 06/24/2024 1:36 PM Ordered Studies 06/24/24 12:28 CT head/brain wo con Stat Hospital Course (1) AMS (altered mental status): (2) Alzheimer's dementia: (3) Acute hyponatremia: Patient is an 89-year-old female with history of Alzheimer's dementia, atrial flutter, hypertension, dyslipidemia, mood disorder presenting with agitation from the assisted living facility. Altered mental status Likely secondary to hyponatremia, dehydration, progression of Alzheimer dementia, metabolic encephalopathy due to suspected UTI Alzheimer's dementia Patient presents with agitation while at assisted living facility this morning, while at the ER, patient was found to be lethargic later during the day. Noted to be having physical and cognitive decline over the past few months per family. Was also Admitted last month for respiratory failure, flu, pneumonia --CT head: No acute process --Ammonia: Normal --ABG: pH 7.4, pCO2 52, bicarb 35 Received IV fluids Monitor electrolytes Continue home medications--donepezil, memantine PT OT, fall precaution Monitor sodium levels Mental status seem to be back to baseline Encourage increased protein intake to help with sodium levels Needs follow-up with PCP with repeat blood work in 1 week on discharge Urinary tract infection--POA Urine culture:Kluyvera species Continue IV Rocephin Transition to oral antibiotics to complete the course Hypokalemia Replete and monitor Atrial flutter Continue metoprolol 25 mg twice daily Not on anticoagulation Hyperlipidemia On statin, continue Hypertension On metoprolol as above Monitor blood pressure Mood disorder On buspirone On trazodone as needed for sleep DVT prophylaxis Hold off chemical anticoagulation due to hematoma SCDs for now CODE STATUS DNR/DNI Disposition SNF Total Time Total Time Spent Total Time Spent (In Minutes): 42 minutes Discharge Plan Discharge Items Patient Disposition: Transfer Detention Fac Reason For Visit: CONFUSION Discharge Diagnosis: Acute metabolic encephalopathy Hyponatremia Hypokalemia Urinary tract infection Alzheimer's dementia Activity: Per Instructions section Exercise/Sports: Gradually increase as tolerated Non-emergency contact: Primary Care Provider Call non-emergency contact if: you have any medication questions, your symptoms worsen, your pain is concerning for you and you have a fever Follow-up/Referrals: Moise Lang, [Primary Care Provider] - Diet: Heart Healthy Addtl Attending Provider Instructions: Follow-up with your primary care physician Dr. Lang in 1 week upon discharge from rehab facility --Get blood work (basic metabolic panel, magnesium levels) in 1 week to monitor your electrolytes. Discuss with your physician for further recommendations. -- Complete the antibiotic course cefdinir as prescribed for 2 more days. Start taking from 06/28/2024. Seek immediate medical attention if your symptoms reoccur or worsen Please take all medications as instructed on discharge list below. Please call if you have any questions or problems. You can reach a [facility] hospitalist on duty at [facility] 24 hours a day by calling [phone] Pending Studies at Discharge: No Stand-Alone Forms: My [facility] Skilled Items Patient informed of condition?: Yes DNR: Yes Discharge Level of Care: Skilled Communicable Disease: No Discharge Prognosis: Stable Lines: None Urinary Catheter: No Medications and DC Order Prescriptions: New magnesium chloride [Mag 64] 64 mg Tablet,Delayed Release (Dr/Ec) 64 mg PO BID Qty: 14 0RF potassium chloride 20 mEq tablet extended release 20 meq PO DAILY Qty: 7 0RF cefdinir 300 mg capsule 300 mg PO BID Qty: 4 0RF Rx Instructions: Start taking from 06/28/2024 Continued donepezil 10 mg Tablet 10 mg PO HS simvastatin 10 mg Tablet 10 mg PO HS cranberry 500 mg Capsule 500 mg PO DAILY Rx Instructions: administer with meals multivitamin-iron (hematinic) Tablet 1 tab PO DAILY Qty: 0 memantine 5 mg Tablet 5 mg PO BID PreserVision AREDS-2 250-90-40-1 mg Capsule 1 cap PO BID buspirone 5 mg Tablet 10 mg PO BID Qty: 60 0RF trazodone 50 mg tablet 25 mg PO HS PRN (Reason: Sleep) clopidogrel 75 mg tablet 75 mg PO DAILY acetaminophen 500 mg Tablet 1,000 mg PO Q8H PRN (Reason: Pain) lorazepam 0.5 mg tablet 0.5 mg PO BID PRN (Reason: Anxiety) metoprolol tartrate 25 mg Tablet 25 mg PO BID Qty: 60 0RF Discharge Orders: Discharge Order (Routine); Ordered 06/27/24 Ordered By: Frank Romero Admission Data Admit Date/Time: 06/24/24 17:59 Attending Provider: Frank Romero Admit Provider: Zachariah Ruiz Primary Care Provider: Moise Lang Other Providers: Zachariah Ruiz; [facility]; [place]; [facility] [place]; [place] Other Interventions: Discharge Summary Assessment (RN) Last Done: 06/27/24 10:10
== END 2024-06-27 10:29 | DRG 640 ==
LOC: ED 12:19 → 3W 17:59 → SUATTDRO 17:59 → 3W 19:23